=== PATIENT | female | born 1945 | race Caucasian/White ===

== ENCOUNTER 2017-09-14 08:52 | Outpatient (RCR) | payer MEDICARE ==
[~2017-09-14 08:52] MED LIST: AMLO-109 PO; ATOR20TA22 PO; CALC-595 PO; CALC-852 PO; CELE-1 PO; ESTR0.9T14 PO; FAMO-129 PO; MECL-111 PO; MECL25TA27 PO; MELO-149 PO; TRIA5T TOP; [UNRECOGNIZED DRUG - CODE] PO
[2017-09-14 09:29] LABS: INR 1.01
== END 2017-09-14 18:00 | disposition home or self-care (01) ==
LOC: LAB 08:52
PROVIDERS: ATTEND Orthopaedic Surgery
DX: Z01.818 Encounter for other preprocedural examination (principal); Z01.812 Encounter for preprocedural laboratory examination; M54.5 Low back pain
CPT/HCPCS: 36415; 85049; 85610; 85730

== ENCOUNTER → 2017-09-17 | Day surgery (SDC) | payer MEDICARE | LOC: OR 01:01 | PROVIDERS: ATTEND Orthopaedic Surgery | DX: Z02.9 Encounter for administrative examinations, unspecified (principal) ==

== ENCOUNTER → 2017-09-20 | Outpatient (CLI) | payer MEDICARE ==
--- NOTE | 2017-09-20 13:57 | RADIOLOGY IMAGING REPORT ---
FACILITY: PATIENT NAME: Susan Asencio : 1945 MR: [id number] V: [id number] EXAM DATE: ORDERING PHYSICIAN: MODESTO YAÑEZ TECHNOLOGIST: Location[place] [facility] [place] Patient: Susan Asencio : 1945 Visit/Account:[id number] Date of Sevice: 09/20/2017 L-SPINE W/O CONTRAST COMPARISONS: None. ADDITIONAL PERTINENT HISTORY: Low back pain for 2 months.. TECHNIQUE: Multiple axial images were obtained through the lumbar spine without IV contrast. Gaston l and sagittal reformatted images were obtained off the axial source data. One of the following dose optimization techniques was utilized in the performance of this exam: Automated exposure control; ad justment of the mA and/or kV according to the patient's size; or use of an iterative reconstruction technique. Specific details can be referenced in the facility's radiology CT exam operational policy . FINDINGS: Vertebral body heights and alignment: Mild scoliotic curvature convex to the left centered at L4-L5.. Vertebral bodies: Anteriorly and posteriorly directed osteophytes in the mid to lower lumbar spine. F acet hypertrophic changes. No bony fractures.. Disc spaces: Posterior broad-based disc protrusions at multiple levels. Associated ligamentum flavum and facet overgrowth at L3-L4. Findings concerning for moderate to severe canal stenosis at L2-L3 and L3-L4.. Thoraco-lumbar junction: Negative. Surrounding soft tissues: <Calcified atherosclerotic plaque involving the abdominal aorta and its ma alisson branches. There are multiple enlarged lymph nodes noted within the retroperitoneum as well as wit hin the mesentery for which a CT scan of the abdomen and pelvis with be of benefit for further evalua tion. This also findings concerning for underlying splenomegaly. Visualized bony pelvis: Negative. IMPRESSION: 1. Findings concerning for underlying lymphadenopathy within the abdomen and retroperitoneum as well as enlargement of the spleen. Dedicated CT of the abdomen and pelvis with contrast would be of benefi t for further evaluation. 2. Multilevel spondylitic change felt to be potentially most significant at L3-L4 and L2-L3 with find ings concerning for underlying severe canal stenosis at both of these levels. 3. No acute appearing bony abnormalities involving the lumbar spine. Report Dictated By: Simon Vang MD at 09/20/2017 1:49 PM Report E-Signed By: Simon Vang MD at 09/20/2017 1:53 PM WSN:[id number]
== END ==
LOC: CT 01:43
PROVIDERS: ATTEND Orthopaedic Surgery
DX: M47.896 Other spondylosis, lumbar region (principal); R59.0 Localized enlarged lymph nodes
CPT/HCPCS: 72131

== ENCOUNTER 2017-10-18 11:08 | Inpatient (IN) | payer MEDICARE ==
[~2017-10-18] VITALS: Ht 165.1 cm; Wt 63.6 kg
[~2017-10-18 11:08] MED LIST changes: +AMLO-96 PO; +BENA10TA4 PO; +CYCL-277 PO; +GLUC100013 PO; +IBUP-1671 PO
--- NOTE | 2017-10-18 11:14 | ER Report ---
History and Physical Time Seen By MD: 11:14 HPI/ROS CHIEF COMPLAINT: Abdominal pain HISTORY OF PRESENT ILLNESS: This is a 72-year-old female who presents to the emergency department for left-sided abdominal pain. Patient states that she developed some left sided abdominal pain that began yesterday gradually getting worse increased abdominal pain today. Patient states it's increases the pain and discomfort when she is taking a deep breath, no nausea, vomiting, diarrhea, dysuria. Patient denies trauma to the area. She states she has had similar pains in the past but not to this extent. Patient has recently changed her GI regiment with increased fiber, increased fluid intake and probiotics. REVIEW OF SYSTEMS: Constitutional: No fever, no chills. Eyes: No discharge. ENT: No sore throat. Cardiovascular: No chest pain, no palpitations. Respiratory: No cough, no shortness of breath. Gastrointestinal: As above. Genitourinary: No hematuria. Musculoskeletal: No back pain. Skin: No rashes. Neurological: No headache. Allergies: Coded Allergies: Sulfa (Sulfonamide Antibiotics) (Unverified Allergy, Unknown, UNKNOWN, 03/28) EHR Conversion amoxicillin (Unverified Allergy, Unknown, UNKNOWN, 10/18/17) EHR Conversion Penicillins (Verified Adverse Reaction, Intermediate, SEVERE DIARRHEA, 03/28) ? Hives Home Meds Active Scripts Benazepril Hcl (BENAZEPRIL HCL) 10 Mg Tab, 1 TAB PO QDAY, #90 TAB 4 Refills Prov:LUCÍA MEDINA MD 10/09/17 Amlodipine Besylate (AMLODIPINE BESYLATE) 5 Mg Tablet, 1 TAB PO QDAY, #90 TAB 4 Refills Prov:LUCÍA MEDINA MD 10/09/17 Estrogens, Conjugated (PREMARIN) 0.9 Mg Tablet, 1 TAB PO QDAY, #90 TAB Prov:CARIDAD LONODN MD 07/27/17 Atorvastatin Calcium (LIPITOR) 20 Mg Tablet, 1 TAB PO QDAY, #90 TAB 4 Refills Prov:BREANNE MCDANIEL MD 05/22/17 Reported Medications Cyclobenzaprine Hcl (CYCLOBENZAPRINE HCL) 5 Mg Tablet, 1 TAB PO Q8H Y for PRN, # 9 TAB 10/08/17 Glucosamine Sulfate 2KCL (GLUCOSAMINE SULFATE) 1,000 Mg Tablet, 1 TAB PO BID 10/08/17 Calcium Citrate/Vitamin D3 (CITRUS CALCIUM + D TABLET) 1 Each Tablet, 1 EACH PO DAILY 2 tabs = vit d 500 and calcium 400. Pt only taking 1 tab 12/27/16 Past Medical/Surgical History Patient has a past medical and surgical history of dizzy spells, hypertension, hypercholesterolemia, GERD, trigeminal neuralgia, left ankle fracture, wears glasses, clear implant, hard of hearing, appendectomy, hysterectomy, left leg surgery, tonsillectomy, mole removal. Reviewed Nurses Notes: Yes Hx Smoking: Yes (>20 YEARS. 1.5PPD) Smoking Status: Current: Every Day Smoker, Heavy Tobacco Smoker Hx Alcohol Use: Yes Constitutional Vital Sign - Last 24 Hours 10/18/17 10/18/17 10/18/17 10/18/17 11:15 11:15 11:30 11:45 Temp 97.7 Pulse 105 106 88 88 Resp 16 B/P (MAP) 131/53 Pulse Ox 89 88 87 86 O2 Delivery Room Air 10/18/17 10/18/17 10/18/17 10/18/17 11:51 12:00 12:15 12:30 Pulse 88 82 88 B/P (MAP) 97/60 (72) 94/55 (68) 97/52 (67) Pulse Ox 85 86 84 10/18/17 10/18/17 12:45 13:00 Pulse 83 B/P (MAP) 95/39 (57) Pulse Ox 87 93 Physical Exam General Appearance: The patient is alert, has no immediate need for airway protection and no signs of toxicity. Eyes: Pupils equal and round no pallor or injection. ENT, Mouth: Mucous membranes are moist. Respiratory: There are no retractions, lungs are clear to auscultation. Cardiovascular: Regular rate and rhythm, systolic murmur, no clicks or rubs. Gastrointestinal: Abdomen is soft with tenderness to the left upper quadrant, hypoactive bowel sounds. No masses, no abdominal bruits noted. Neurological: Alert and oriented 4. Moving all extremities. Following all commands. No focal neuro deficits. Skin: Warm and dry, no rashes. Musculoskeletal: Neck is supple non tender. Extremities are nontender, nonswollen and have full range of motion. DIFFERENTIAL DIAGNOSIS: After history and physical exam differential diagnosis was considered for abdominal pain including but not limited to appendicitis, cholecystitis, gastritis and urinary tract infection. Medical Decision Making Data Points Result Diagram: 10/18/17 1145 10/18/17 1145 Laboratory Hematology Test 10/18/17 11:45 10/18/17 11:49 Red Blood Count 5.21 M/uL (4.17-5.56) Mean Corpuscular Volume 88.0 fL (80.0-96.0) Mean Corpuscular Hemoglobin 29.7 pg (26.0-33.0) Mean Corpuscular Hemoglobin Concent 33.8 g/dL (32.0-36.0) Red Cell Distribution Width 14.0 % (11.5-14.5) Mean Platelet Volume 8.8 fL (7.2-11.1) Neutrophils (%) (Auto) % (39.4-72.5) Lymphocytes (%) (Auto) % (17.6-49.6) Monocytes (%) (Auto) % (4.1-12.4) Eosinophils (%) (Auto) % (0.4-6.7) Basophils (%) (Auto) % (0.3-1.4) Nucleated RBC Relative Count (auto) /100WBC Neutrophils # (Auto) K/uL (2.0-7.4) Lymphocytes # (Auto) K/uL (1.3-3.6) Monocytes # (Auto) K/uL (0.3-1.0) Eosinophils # (Auto) K/uL (0.0-0.5) Basophils # (Auto) K/uL (0.0-0.1) Nucleated RBC Absolute Count (auto) K/uL Neutrophils % (Manual) 20 % (39.4-72.5) Band Neutrophils % 0 % Lymphocytes % (Manual) 71 % (17.6-49.6) Atypical Lymphocytes % 5 % Monocytes % (Manual) 3 % (4.1-12.4) Eosinophils % (Manual) 0 % (0.4-6.7) Basophils % (Manual) 0 % (0.3-1.4) Platelet Estimate Normal Spherocytes 1+ Sodium Level 138 mmol/L (137-145) Potassium Level 4.2 mmol/L (3.5-5.0) Chloride Level 104 mmol/L (98-107) Carbon Dioxide Level 19 mmol/L (22-31) Blood Urea Nitrogen 16 mg/dl (7-18) Creatinine 1.10 mg/dl (0.52-1.04) Glomerular Filtration Rate Calc 48.6 Random Glucose 86 mg/dl (75-110) Calcium Level 9.8 mg/dl (8.4-10.2) Total Bilirubin 1.0 mg/dl (0.2-1.3) Aspartate Amino Transf (AST/SGOT) 26 U/L (0-35) Alanine Aminotransferase (ALT/SGPT) 29 U/L (0-56) Alkaline Phosphatase 88 U/L (0-126) Total Protein 7.0 gm/dl (6.3-8.2) Albumin 4.2 g/dl (3.5-5.0) Amylase Level 83 U/L (0-110) Lipase 106 U/L (23-300) Chemistry Test 10/18/17 11:45 10/18/17 11:49 White Blood Count 19.5 k/uL (4.5-11.0) Red Blood Count 5.21 M/uL (4.17-5.56) Hemoglobin 15.5 g/dL (12.0-16.0) Hematocrit 45.8 % (34.0-47.0) Mean Corpuscular Volume 88.0 fL (80.0-96.0) Mean Corpuscular Hemoglobin 29.7 pg (26.0-33.0) Mean Corpuscular Hemoglobin Concent 33.8 g/dL (32.0-36.0) Red Cell Distribution Width 14.0 % (11.5-14.5) Platelet Count 110 K/uL (150-450) Mean Platelet Volume 8.8 fL (7.2-11.1) Neutrophils (%) (Auto) % (39.4-72.5) Lymphocytes (%) (Auto) % (17.6-49.6) Monocytes (%) (Auto) % (4.1-12.4) Eosinophils (%) (Auto) % (0.4-6.7) Basophils (%) (Auto) % (0.3-1.4) Nucleated RBC Relative Count (auto) /100WBC Neutrophils # (Auto) K/uL (2.0-7.4) Lymphocytes # (Auto) K/uL (1.3-3.6) Monocytes # (Auto) K/uL (0.3-1.0) Eosinophils # (Auto) K/uL (0.0-0.5) Basophils # (Auto) K/uL (0.0-0.1) Nucleated RBC Absolute Count (auto) K/uL Neutrophils % (Manual) 20 % (39.4-72.5) Band Neutrophils % 0 % Lymphocytes % (Manual) 71 % (17.6-49.6) Atypical Lymphocytes % 5 % Monocytes % (Manual) 3 % (4.1-12.4) Eosinophils % (Manual) 0 % (0.4-6.7) Basophils % (Manual) 0 % (0.3-1.4) Platelet Estimate Normal Spherocytes 1+ Glomerular Filtration Rate Calc 48.6 Calcium Level 9.8 mg/dl (8.4-10.2) Total Bilirubin 1.0 mg/dl (0.2-1.3) Aspartate Amino Transf (AST/SGOT) 26 U/L (0-35) Alanine Aminotransferase (ALT/SGPT) 29 U/L (0-56) Alkaline Phosphatase 88 U/L (0-126) Total Protein 7.0 gm/dl (6.3-8.2) Albumin 4.2 g/dl (3.5-5.0) Amylase Level 83 U/L (0-110) Lipase 106 U/L (23-300) EKG/Imaging Imaging [facility] Patient: Susan Asencio : 1945 Visit/Account:[id number] Date of [facility]: 10/18/2017 ACUTE ABDOMEN SERIES 3 VIEW HISTORY: Abdominal pain. COMPARISON: Chest x-ray dated 11/13/2011. Lumbar spine CT dated 09/20/2017. FINDINGS: PA upright view of the chest, AP supine and AP upright views of the abdomen are obtained. Lines/tubes: None. Bowel gas pattern: No distended loops of bowel, air fluid levels or free air. Soft tissues: Soft tissue density in the left side of the abdomen suspicious for splenomegaly or other mass. Bony structures: Degenerative changes in the spine and hips. No acute osseous findings. Visualized lungs: Bilateral hilar and mediastinal fullness suspicious for lymphadenopathy. No consolidation, pleural effusion, or pneumothorax. IMPRESSION: 1. Bilateral hilar and mediastinal fullness suspicious for lymphadenopathy. Soft tissue density in the left side of the abdomen suspicious for splenomegaly. Retroperitoneal lymph node enlargement on the recent lumbar spine CT. Together these findings are concerning for lymphoma, infectious/ inflammatory disorders, or other malignancy. 2. Otherwise no acute abnormality. Results were called to MONTY RIVERA at 10/18/2017 12:55 PM. Report Dictated By: Monty Burrell MD at 10/18/2017 12:51 PM Report E-Signed By: Monty Burrell MD at 10/18/2017 1:00 PM WSN:[id number] [facility] Patient: Susan Asencio : 1945 Visit/Account:[id number] Date of Sevice: 10/18/2017 CHEST/AB/PELV W/CONTRAST HISTORY: Enlarged lymph nodes in spleen, left-sided abdomen pain ADDITIONAL HISTORY: None. TECHNIQUE: Following administration of IV contrast axial images acquired through the chest abdomen and pelvis during the portal venous phase. Coronal and sagittal reformatting was also performed. Dose Lowering Technique One of the following dose optimization techniques was utilized in the performance of this exam: Automated exposure control; adjustment of the mA and/ or kV according to the patient's size; or use of an iterative reconstruction technique. Specific details can be referenced in the facility's radiology CT exam operational policy. CONTRAST: 75 mL Isovue-370 COMPARISON: None. FINDINGS: CHEST: Lungs/Pleura: There is extensive honeycombing in the right lower lobe in addition to a 3.2 x 2.1 cm cavity possibly an irregular bulla. Also noted is a 5 mm subpleural noncalcified nodule posterior aspect right lower lobe best seen on image 71 of series 4 Mediastinum/lymph nodes: There is bulky mediastinal and bilateral hilar adenopathy. A confluent right paratracheal mass measures 4.5 x 3.2 x 6 cm. There is a bulky subcarinal amber mass measuring 6.2 x 2.6 x 4.8 cm multiple enlarged prevascular space AP window and bilateral hilar lymph nodes are also noted. There are multiple small supraclavicular lymph nodes bilaterally and multiple small axillary lymph nodes also noted bilaterally. Heart/vessels: There are moderate to severe vascular calcifications in the thoracic aorta and branch vessels including the coronary arteries. Bones/soft tissues: There is a small ovoid sclerotic density at the junction of right pedicle and posterior body of T10. ABDOMEN AND PELVIS: Hepatobiliary: There are several small gallstones although no evidence of biliary ductal dilatation. Spleen: Spleen is massively enlarged measuring 16.8 x 11.2 x 20 point to centimeters Pancreas: Negative. Adrenals: Negative. Kidneys ureters and bladder : There is a 7 x 5 mm stone in the right UPJ without evidence of hydronephrosis. Small subcentimeter hypodensity in the upper pole the right kidney likely represent a cyst although is too small to characterize. The left kidney is displaced inferiorly by the markedly enlarged spleen Genitalia: Hysterectomy GI: Negative. Vessels/spaces/nodes: Extensive vascular calcifications are seen throughout the chest abdomen and pelvis . There is massive retroperitoneal and mesenteric adenopathy throughout the abdomen and pelvis. There is very bulky periportal adenopathy. A retail account representative portal caval lymph node measures 2.3 x 3.8 cm extensive adenopathy just medial to the spleen is producing severe extrinsic mass effect on the mid left splenic vein. This is best appreciated on axial image 99 of series 2 Bones/soft tissues: Mild to moderate spondylotic changes of the lumbar spine. Additional findings: None pertinent. IMPRESSION: There is bulky mediastinal and bilateral hilar adenopathy in addition to massive retroperitoneal mesenteric adenopathy and periportal adenopathy. Also noted is massive splenomegaly.. This findings may be related to lymphoma or other aggressive lymphoproliferative process. There is severe mass effect on the mid splenic vein secondary to adjacent adenopathy Extensive honeycombing in the right lower lobe adjacent irregular cavitary lesion likely chronic although correlation with symptoms needed. Also noted is a 5 mm subpleural noncalcified nodule in the right lower lobe For nodules less than 6 mm in a low risk patient (minimal or absent smoking history, no history of malignancy), no routine followup is recomme ded. In a high risk patient ( smoking or malignancy history), optional 12 month followup can be obtained. Extensive vascular calcination occasions throughout the chest abdomen pelvisSmall ovoid sclerotic density junction of the right pedicle and posterior body of T10. This could represent a bone island however given the above findings a metastatic lesion not totally ruled out Cholelithiasis although no evidence of bony ductal dilatation 7 x 5 mm stone at the right UPJ without evidence of hydronephrosis Report Dictated By: Yesenia Hernandez MD at 10/18/2017 2:03 PM Report E-Signed By: Yesenia Hernandez MD at 10/18/2017 2:20 PM [id number] ED Course/Re-evaluation Clinical Indication for ER IV: Hydration, IV Access ED Course The patient was admitted to a room. A history and physical were obtained. Differential diagnoses were considered. An IV was started. A CBC, CMP were obtained. Diagnoses 19.5, Platelets 110, neutrophils 20, lymphocytes 71, chemistry showing CO2 19, creatinine 1.10. Three-view abdominal series showing bilateral hilar and mediastinal fullness suspicious for lymphoma, splenomegaly. It was recommended by the radiologist to proceed with a CT of the chest abdomen pelvis showing bulky mediastinal and bilateral hilar adenopathy in addition to massive retroperitoneal mesenteric adenopathy and periportal adenopathy. Also noted is massive splenomegaly. This findings may be related to lymphoma or other aggressive lymphoproliferative process. There is severe mass effect on the mid splenic vein secondary to adjacent adenopathy. Extensive honeycombing in the right lower lobe adjacent irregular cavitary lesion likely chronic although correlation with symptoms needed. Also noted is a 5 mm subpleural noncalcified nodule in the right lower lobe For nodules less than 6 mm in a low risk patient (minimal or absent smoking history, no history of malignancy), no routine followup is recommeded. In a high risk patient (smoking or malignancy history), optional 12 month followup can be obtained. Extensive vascular calcination occasions throughout the chest abdomen pelvis Small ovoid sclerotic density junction of the right pedicle and posterior body of T10. This could represent a bone island however given the above findings a metastatic lesion not totally ruled out I did review the lab studies as well as the CT report with the patient and her . The patient wasn't sure what to do with this diagnosis, I did tell her I did talk to and we added some additional lab studies and he will see her in his office next . I also spine to her that there will likely be some potential biopsies involved however Dr. Pelaez will make that recommendation. Patient was obviously sad and upset and had questions. I did tell her that my recommendation would be to admit her to the hospital and try to manage her pain over the next 8 or so and that she would likely go home and follow-up in Dr. Pelaez's office. The patient thought that would be fine she was concerned about the pain. I did speak with Dr. Nguyen the hospitalist on-call and he is accepted the patient into his services for pain control. The patient had no other questions at the time of admission. The patient was given 650 mg Tylenol, 500 mL bolus of normal saline, 4 mg IV morphine, 50 g IV fentanyl. The patient states she was feeling a little bit better after the IV fentanyl. 10/18/2017 3:01:05 pm I did speak with Dr. Pelaez regarding the patient's case and the diagnosis of lymphoma that was found on abdominal Xray and CT of the chest, abdomen and pelvis. I did order, at Dr. Pelaez's request flow cytometry for lymphoma and leukemia. The patient will be contacted by Dr. Pelaez's office and will follow up with him next . I did suggest admitting the patient for pain control, he thought that would be fine. 10/18/2017 3:20:22 pm I did speak with Dr. Nguyen regarding the patient's case, he has accepted the patient to his services for pain control secondary to new diagnosis of lymphoma. 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
[2017-10-18] MEDS ORDERED: ACETAMINOPHEN 325 MG TAB PO ONE (11:25)
[2017-10-18 12:07] LABS: PLATELET COUNT, AUTOMATED 110 K/uL (150-450)
[2017-10-18] MEDS ORDERED: NS(*) 0.9% 500 ML BAG 500 ML IV ONE (12:30)
[2017-10-18] MEDS ORDERED: MORPHINE 4 MG/ML SDV IVP ONE (12:45)
--- NOTE | 2017-10-18 13:04 | RADIOLOGY IMAGING REPORT ---
FACILITY: [facility] PATIENT NAME: Susan Asencio : 1945 MR: [id number] V: [id number] EXAM DATE: ORDERING PHYSICIAN: JONNA RIVERA TECHNOLOGIST: Location: [facility] - [place] Patient: Susan Asencio : 1945 Visit/Account:[id number] Date of Sevice: 10/18/2017 ACUTE ABDOMEN SERIES 3 VIEW HISTORY: Abdominal pain. COMPARISON: Chest x-ray dated 11/13/2011. Lumbar spine CT dated 09/20/2017. FINDINGS: PA upright view of the chest, AP supine and AP upright views of the abdomen are obtained. Lines/tubes: None. Bowel gas pattern: No distended loops of bowel, air fluid levels or free air. Soft tissues: Soft tissue density in the left side of the abdomen suspicious for splenomegaly or oth er mass. Bony structures: Degenerative changes in the spine and hips. No acute osseous findings. Visualized lungs: Bilateral hilar and mediastinal fullness suspicious for lymphadenopathy. No consol idation, pleural effusion, or pneumothorax. IMPRESSION: 1. Bilateral hilar and mediastinal fullness suspicious for lymphadenopathy. Soft tissue density in th e left side of the abdomen suspicious for splenomegaly. Retroperitoneal lymph node enlargement on the recent lumbar spine CT. Together these findings are concerning for lymphoma, infectious/inflammatory disorders, or other malignancy. 2. Otherwise no acute abnormality. Results were called to JONNA RIVERA at 10/18/2017 12:55 PM. Report Dictated By: Jonna Burrell MD at 10/18/2017 12:51 PM Report E-Signed By: Jonna Burrell MD at 10/18/2017 1:00 PM WSN:[id number]
[2017-10-18] MEDS ORDERED: IOPAMIDOL 76% 75 ML INFUS BTL 75 ML ONE (13:32)
--- NOTE | 2017-10-18 14:25 | RADIOLOGY IMAGING REPORT ---
FACILITY: [facility] PATIENT NAME: Susan Asencio : 1945 MR: [id number] V: [id number] EXAM DATE: ORDERING PHYSICIAN: JONNA RIVERA TECHNOLOGIST: Location: [facility] Patient: Susan Asencio : 1945 Visit/Account:[id number] Date of Sevice: 10/18/2017 CHEST/AB/PELV W/CONTRAST HISTORY: Enlarged lymph nodes in spleen, left-sided abdomen pain ADDITIONAL HISTORY: None. TECHNIQUE: Following administration of IV contrast axial images acquired through the chest abdomen a nd pelvis during the portal venous phase. Coronal and sagittal reformatting was also performed. Dose Lowering Technique One of the following dose optimization techniques was utilized in the performance of this exam: Autom ated exposure control; adjustment of the mA and/or kV according to the patient's size; or use of an i terative reconstruction technique. Specific details can be referenced in the facility's radiology C T exam operational policy. CONTRAST: 75 mL Isovue-370 COMPARISON: None. FINDINGS: CHEST: Lungs/Pleura: There is extensive honeycombing in the right lower lobe in addition to a 3.2 x 2.1 cm cavity possibly an irregular bulla. Also noted is a 5 mm subpleural noncalcified nodule posterior as pect right lower lobe best seen on image 71 of series 4 Mediastinum/lymph nodes: There is bulky mediastinal and bilateral hilar adenopathy. A confluent rig ht paratracheal mass measures 4.5 x 3.2 x 6 cm. There is a bulky subcarinal amber mass measuring 6.2 x 2.6 x 4.8 cm multiple enlarged prevascular space AP window and bilateral hilar lymph nodes are als o noted. There are multiple small supraclavicular lymph nodes bilaterally and multiple small axillar y lymph nodes also noted bilaterally. Heart/vessels: There are moderate to severe vascular calcifications in the thoracic aorta and branch vessels including the coronary arteries. Bones/soft tissues: There is a small ovoid sclerotic density at the junction of right pedicle and po sterior body of T10. ABDOMEN AND PELVIS: Hepatobiliary: There are several small gallstones although no evidence of biliary ductal dilatation. Spleen: Spleen is massively enlarged measuring 16.8 x 11.2 x 20 point to centimeters Pancreas: Negative. Adrenals: Negative. Kidneys ureters and bladder : There is a 7 x 5 mm stone in the right UPJ without evidence of hydronep hrosis. Small subcentimeter hypodensity in the upper pole the right kidney likely represent a cyst a lthough is too small to characterize. The left kidney is displaced inferiorly by the markedly enlarg ed spleen Genitalia: Hysterectomy GI: Negative. Vessels/spaces/nodes: Extensive vascular calcifications are seen throughout the chest abdomen and pe lvis . There is massive retroperitoneal and mesenteric adenopathy throughout the abdomen and pelvis. There is very bulky periportal adenopathy. A corporate sales representative portal caval lymph node measures 2.3 x 3.8 cm extensive adenopathy just medial to the spleen is producing severe extrinsic mass effect on the mid l eft splenic vein. This is best appreciated on axial image 99 of series 2 Bones/soft tissues: Mild to moderate spondylotic changes of the lumbar spine. Additional findings: None pertinent. IMPRESSION: There is bulky mediastinal and bilateral hilar adenopathy in addition to massive retroperitoneal mese nteric adenopathy and periportal adenopathy. Also noted is massive splenomegaly.. This findings may be related to lymphoma or other aggressive lymphoproliferative process. There is severe mass effect on the mid splenic vein secondary to adjacent adenopathy Extensive honeycombing in the right lower lobe adjacent irregular cavitary lesion likely chronic alth ough correlation with symptoms needed. Also noted is a 5 mm subpleural noncalcified nodule in the ri ght lower lobe For nodules less than 6 mm in a low risk patient (minimal or absent smoking history, n o history of malignancy), no routine followup is recomme ded. In a high risk patient (smoking or kavita gnancy history), optional 12 month followup can be obtained. Extensive vascular calcination occasions throughout the chest abdomen pelvisSmall ovoid sclerotic den sity junction of the right pedicle and posterior body of T10. This could represent a bone island how ever given the above findings a metastatic lesion not totally ruled out Cholelithiasis although no evidence of bony ductal dilatation 7 x 5 mm stone at the right UPJ without evidence of hydronephrosis Report Dictated By: Yesenia Hernandez MD at 10/18/2017 2:03 PM Report E-Signed By: Yesenia Hernandez MD at 10/18/2017 2:20 PM WSN:TREMAINE
[2017-10-18] MEDS ORDERED: fentaNYL CITR 100 MCG/2 ML AMP IVP ONE (15:30)
[2017-10-18 16:03] VITALS: BP 129/56
--- NOTE | 2017-10-18 16:38 | History & Physical ---
History of Present Illness Chief Complaint Left sided abdominal pain History of Present Illness Mrs. Asencio is a 72-year-old female with PMH of HTN, Hyperlipidemia, GERD, Active smoker who presented to the emergency department for left-sided abdominal pain. Patient stated that she has been having this left sided abdominal pain off and on for the last few months and yesterday it got worse. Patient stated the pain and discomfort gets worse when she takes a deep breath. She denies nausea, vomiting, diarrhea, dyspnea, CP, dysuria etc. Patient denied any trauma to the area. She stated she has had similar pains in the past but not to this extent. Patient has recently changed her GI regiment with increased fiber, increased fluid intake and probiotics per her PCP, Dr. Medina. During the ER course patient's initial work up revealed high WBC with 71% Lymphocytes and 20% Neutrophils, her Cr was 1.1 with GFR 48ml/min and CO2 was 19. Her abdominal series revealed bilateral hilar and mediastinal fullness and splenomegaly suspicious for lymphoma. It was recommended by the radiologist to proceed with a CT of the chest abdomen pelvis showing bulky mediastinal and bilateral hilar adenopathy in addition to massive retroperitoneal mesenteric adenopathy and periportal adenopathy. Also noted is massive splenomegaly. This findings may be related to lymphoma or other aggressive lymphoproliferative process. There is severe mass effect on the mid splenic vein secondary to adjacent adenopathy. Extensive honeycombing in the right lower lobe adjacent irregular cavitary lesion likely chronic although correlation with symptoms needed. Also noted is a 5 mm subpleural noncalcified nodule in the right lower lobe For nodules less than 6 mm in a low risk patient (minimal or absent smoking history, no history of malignancy), no routine followup is recommended. In a high risk patient (smoking or malignancy history), optional 12 month followup can be obtained. Extensive vascular calcination occasions throughout the chest, abdomen and pelvis. Small ovoid sclerotic density junction of the right pedicle and posterior body of T10. This could represent a bone island however given the above findings a metastatic lesion not totally ruled out ER-MD did talk to Dr. Pelaez regarding the patient's case and the diagnosis of lymphoma that was found on abdominal Xray and CT of the chest, abdomen and pelvis. He ordered, at Dr. Pelaez's request flow cytometry for lymphoma and leukemia. The patient will be contacted by Dr. Pelaez's office and will follow up with him next . I discussed the case with the ER-MD and admitted the patient for further evaluation and management. I discussed the case with her and her at length. History Home Meds Active Scripts Benazepril Hcl (BENAZEPRIL HCL) 10 Mg Tab, 1 TAB PO QDAY, #90 TAB 4 Refills Prov:LUCÍA MEDINA MD 10/09/17 Amlodipine Besylate (AMLODIPINE BESYLATE) 5 Mg Tablet, 1 TAB PO QDAY, #90 TAB 4 Refills Prov:LUCÍA MEDINA MD 10/09/17 Estrogens, Conjugated (PREMARIN) 0.9 Mg Tablet, 1 TAB PO QDAY, #90 TAB Prov:CARIDAD LONDON MD 07/27/17 Atorvastatin Calcium (LIPITOR) 20 Mg Tablet, 1 TAB PO QDAY, #90 TAB 4 Refills Prov:BREANNE MCDANIEL MD 05/22/17 Reported Medications Cyclobenzaprine Hcl (CYCLOBENZAPRINE HCL) 5 Mg Tablet, 1 TAB PO Q8H Y for PRN, # 9 TAB 10/08/17 Glucosamine Sulfate 2KCL (GLUCOSAMINE SULFATE) 1,000 Mg Tablet, 1 TAB PO BID 10/08/17 Calcium Citrate/Vitamin D3 (CITRUS CALCIUM + D TABLET) 1 Each Tablet, 1 EACH PO DAILY 2 tabs = vit d 500 and calcium 400. Pt only taking 1 tab 12/27/16 Allergies: Coded Allergies: Sulfa (Sulfonamide Antibiotics) (Unverified Allergy, Unknown, UNKNOWN, 03/28) EHR Conversion amoxicillin (Unverified Allergy, Unknown, UNKNOWN, 10/18/17) EHR Conversion Penicillins (Verified Adverse Reaction, Intermediate, SEVERE DIARRHEA, 03/28) ? Hives Hx Smoking: Yes (>20 YEARS. 1.5PPD) Smoking Status: Current: Every Day Smoker, Heavy Tobacco Smoker Caffeine Intake: Coffee, Soda Caffeine/Cups Per Day: COFFEE 2/DAY, SODA 2/WEEK Hx Alcohol Use: Yes Hx Substance Use Disorder: No Social Drug Use: Never Review of Systems Constitutional: No Fever, No Weight Loss, No Weight Gain, No Chills, No Night Sweats Neurological: No Confusion, No Weakness, No Dizziness Cardiovascular: No Chest Pain, No Palpitations Respiratory: No Shortness of Breath, No Cough, No Wheezing Gastrointestinal: No Nausea, No Vomiting, No Diarrhea, No Dysphagia, No Constipation, No Hematemesis, No Abdominal Pain Genitourinary: No Dysuria, No Hematuria Musculoskeletal: No Pain, No Sprain, No Strain Psychiatric: No Depression, No Anxiety Exam Vital Signs Vital Signs Date Time Temp Pulse Resp B/P (MAP) Pulse Ox O2 Delivery O2 Flow Rate FiO2 10/18/17 16:03 97.9 69 14 129/56 (80) 91 Nasal Cannula 2.0 General Appearance: Alert, Awake, No Acute Distress, Afebrile Neuro: No Gross deficits Eyes: PERRLA ENT: Normal Neck: No Masses Cardiovascular: Normal Rhythm & Peripheral Pulses, No Edema, No JVD Respiratory: No Respiratory Distress Chest: No Masses GI: Abd Soft and Non-Tender : Normal, No CVA Tenderness, Other (palpable spleen with tenderness) Extremities: Soft and Non Tender, Warm, Pulses Integumentary: Skin Intact without Lesion / Mass Psych: Alert & Oriented X3, Appropriate Mood & Affect Medical Decision Making Data Points Result Diagram: 10/18/17 1145 10/18/17 1145 reviewed Pre-Admit Course ED Medications reviewed Medical Record Review: Yes Assessment and Plan Problems: (1) Abdominal pain Status: Acute Assessment & Plan: Most likely due to massive splenomegaly along with lymphadenopathy requires to r/o lymphoproliferative disease and infectious process I will admit the patient for further evaluation and management for her pain. Lymphoma work up initiated in the ER and Dr. Sridhar Flores was also informed. Patient is scheduled to have appointment on at cancer center I will start her on Lovenox 40mgSQ daily for her DVTP I will start Morphine 2-4mg IV q 4h I will start Zofran 4mg IV q 6h I will also start Nicotine Patch for her active nicotine use (2) Lymphoma Status: Acute Assessment & Plan: Imaging studies in the ER revealed Lymphoproliferative disorder and work up was initiated in the ER. Dr. Sridhar Flores was consulted and patient scheduled to have appointment on Flow Cytometry was sent from ER, infectious w/u will be done here I will start her on Lovenox 40mgSQ daily for her DVTP I will start Morphine 2-4mg IV q 4h I will start Zofran 4mg IV q 6h I will also start Nicotine Patch for her active nicotine use (3) Acute kidney injury Status: Acute Assessment & Plan: Most likely due to pre renal azotemia I will start IVF NS at 80ml/h I will repeat BMP in am Time Spent on Plan of Care: > 30 min Copies to: LUCÍA MEDINA MD; IESHA APODACA MD Venous Thromboembolism VTE Risk Physician Assess for VTE Risk: Yes Patient's VTE Risk: High VTE Diagnostic Test 2 Days Prior to Admit: No Antithrombotics Is Pt On Any Antithrombotics?: No Exam Sepsis Risk: No Definite Risk Problem Qualifiers (1) Abdominal pain: Abdominal location: left upper quadrant Qualified Codes: R10.12 - Left upper quadrant pain (2) Lymphoma: Lymphoma type: unspecified type Lymphoma site: spleen Qualified Codes: C85.97 - Non-Hodgkin lymphoma, unspecified, spleen DORIS NUÑEZ MD October 18, 2017 16:38
[2017-10-18] MEDS ORDERED: NS(*) 0.9% 1000 ML BAG 1,000 ML IV PRN ×2 (17:35→17:45)
[2017-10-18] MEDS ORDERED: ONDANSETRON 4 MG/2 ML VIAL IVP PRN (17:45)
[2017-10-18] MEDS ORDERED: ACETAMINOPHEN 325 MG TAB PO PRN (17:45)
[2017-10-18] MEDS ORDERED: MORPHINE 4 MG/ML SDV IVP PRN (17:50)
[2017-10-18] MEDS ORDERED: MORPHINE 2 MG/ML SYR IVP PRN (17:55)
[2017-10-18 19:11] VITALS: BP 101/55
[2017-10-18] MEDS: NICOTINE 21 MG/24 HR PATCH TD SCH (19:59)
[2017-10-18] MEDS ORDERED: ATORVASTATIN 10 MG TAB PO SCH (21:00)
[2017-10-18 23:42] VITALS: BP 106/52
[2017-10-19 05:31] LABS: PLATELET COUNT, AUTOMATED 102 K/uL (150-450)
[2017-10-19 07:22] VITALS: BP 107/53
[2017-10-19] MEDS ORDERED: amLODIPine BESYL(*) 5 MG TAB PO SCH (09:00)
[2017-10-19] MEDS ORDERED: PANTOPRAZOLE SOD 40 MG TABEC PO SCH (09:00)
[2017-10-19] MEDS ORDERED: BENAZEPRIL HCL 10 MG TAB PO SCH (09:00)
[2017-10-19] MEDS ORDERED: ENOXAPARIN 40 MG/0.4ML SYR SC SCH (09:00)
[2017-10-19] MEDS: NICOTINE 21 MG/24 HR PATCH TD SCH (09:24)
[2017-10-19] MEDS ORDERED: PER PO (09:29)
--- NOTE | 2017-10-19 09:33 | Hospitalist Depart ---
Discharge Summary Reason for Hosp/Final Diag: (1) Lymphoma Status: Acute Hospital Course & Plan: She did present with abdominal pain. Her CT scan detected massive retroperitoneal adenopathy and splenomegaly. She does have follow up arranged with Dr. Sridhar Pelaez. (2) Acute kidney injury Status: Acute Hospital Course & Plan: She was treated with IV fluids. Departure Latest Vital Signs Vital Signs 10/19/17 07:22 Temp 98.2 Pulse 77 Resp 20 B/P (MAP) 107/53 (71) Weight (Pounds): 140 Weight (Ounces): 2.0 Result Diagram: 10/19/1751010/19/17510 Condition: Improved Discharge: Home, Self Care Discharge Instructions Home Meds Active Scripts Oxycodone/Acetaminophen (OXYCODONE/ACETAMINOPHEN 5MG/325 MG) 5 Mg/325 Mg Tab, 1- 2 TAB PO Q6HR Y for PAIN, #30 TAB Prov:JOSELYN TRAYLOR DO 10/19/17 Benazepril Hcl (BENAZEPRIL HCL) 10 Mg Tab, 1 TAB PO QDAY, #90 TAB 4 Refills Prov:LUCÍA MEDINA MD 10/09/17 Amlodipine Besylate (AMLODIPINE BESYLATE) 5 Mg Tablet, 1 TAB PO QDAY, #90 TAB 4 Refills Prov:LUCÍA MEDINA MD 10/09/17 Estrogens, Conjugated (PREMARIN) 0.9 Mg Tablet, 1 TAB PO QDAY, #90 TAB Prov:CARIDAD LONDON MD 07/27/17 Atorvastatin Calcium (LIPITOR) 20 Mg Tablet, 1 TAB PO QDAY, #90 TAB 4 Refills Prov:BREANNE MCDANIEL MD 05/22/17 Reported Medications Glucosamine Sulfate 2KCL (GLUCOSAMINE SULFATE) 1,000 Mg Tablet, 1 TAB PO BID 10/08/17 Calcium Citrate/Vitamin D3 (CITRUS CALCIUM + D TABLET) 1 Each Tablet, 1 EACH PO DAILY 2 tabs = vit d 500 and calcium 400. Pt only taking 1 tab 12/27/16 Discontinued Reported Medications Cyclobenzaprine Hcl (CYCLOBENZAPRINE HCL) 5 Mg Tablet, 1 TAB PO Q8H Y for PRN, # 9 TAB 10/08/17 Diet: Regular Activity: As Tolerated Copies to: IESHA APODACA MD Venous Thromboembolism Antithrombotics Is Pt On Any Antithrombotics?: No Problem Qualifiers (1) Lymphoma: Lymphoma type: unspecified type Lymphoma site: spleen Qualified Codes: C85.97 - Non-Hodgkin lymphoma, unspecified, spleen JOSELYN TRAYLOR DO October 19, 2017 09:33
[2017-10-19 11:01] VITALS: Ht 165.1 cm; Wt 63.6 kg
== END 2017-10-19 12:30 | disposition home or self-care (01) | DRG 948 ==
LOC: ER 11:13 → MED 15:27
PROVIDERS: ADMIT Specialist; ATTEND Specialist
DX: G89.3 Neoplasm related pain (acute) (chronic) (principal); C85.97 Non-Hodgkin lymphoma, unspecified, spleen; N17.9 Acute kidney failure, unspecified; I10 Essential (primary) hypertension; K21.9 Gastro-esophageal reflux disease without esophagitis; E78.00 Pure hypercholesterolemia, unspecified; G50.0 Trigeminal neuralgia; F17.210 Nicotine dependence, cigarettes, uncomplicated; Z90.710 Acquired absence of both cervix and uterus; Z88.0 Allergy status to penicillin; Z88.2 Allergy status to sulfonamides
CPT/HCPCS: 36415; 71260; 74022; 74177; 81001; 82040; 82150; 82247; 82310; 82374; 82435; 82565; 82947; 83615; 83690; 84075; 84132; 84155; 84165; 84295; 84450; 84460; 84520; 85007; 85025; 85027; 86580; 87040; 87088; 88184; 88185; 88189; 99285; J2270; J2405; J3010; J7030; J7040; Q9967

== ENCOUNTER 2017-11-01 00:29 | Day surgery (SDC) | payer MEDICARE ==
[2017-10-19 11:01] VITALS: Ht 167.6 cm; Wt 61.2 kg
[2017-11-01] VITALS (7 sets, daily range): BP systolic 84–111; BP diastolic 47–58
[~2017-11-01] VITALS: Ht 167.6 cm; Wt 61.2 kg
[~2017-11-01 00:29] MED LIST changes: +BISA-236 RC; +OXYC-373 PO; +PER PO; +POLY17PO25 PO
[2017-11-01] MEDS ORDERED: NORMOSOL R SOLN(*) 1000 ML BAG 1,000 ML IV PRN (10:00)
[2017-11-01] MEDS ORDERED: VANCOMYCIN 1 GM ADDVIAL 1 GM in NS(*) 0.9% 250 ML ADDVAN BAG 250 ML IVPB ONE (10:00)
[2017-11-01] MEDS ORDERED: MIDAZOLAM 2 MG/2 ML VIAL IVP PRN (10:00)
[2017-11-01] MEDS ORDERED: FAMOTIDINE 20 MG TAB PO ONE (10:00)
[2017-11-01] MEDS ORDERED: LIDOCAINE/SOD BICARB 8.4% SYR ID ONE (10:00)
[2017-11-01 10:56] LABS: PLATELET COUNT, AUTOMATED 158 K/uL (150-450)
--- NOTE | 2017-11-01 11:06 | EKG ---
FACILITY: [facility] PATIENT NAME: SRINIVAS RINALDI : [id number] MR: [id number] V: [id number] EXAM DATE: ORDERING PHYSICIAN: BREANNE BENAVIDEZ TECHNOLOGIST: AGA Pruitt Reason : PRE-OP Blood Pressure : / mmHG Vent. Rate : 095 BPM Atrial Rate : 095 BPM P-R Int : 130 ms QRS Dur : 076 ms QT Int : 358 ms P-R-T Axes : 055 017 070 degrees QTc Int : 449 ms Normal sinus rhythm Normal ECG No previous ECGs available Confirmed by JOSELYN TRAYLOR ([id number]) on 11/01/2017 2:59:22 PM Referred By: BENNIE Confirmed By:JOSELYN TRAYLOR
[2017-11-01] MEDS ORDERED: HYDROmorphone HCL 2 MG/ML SDV IVP ONE (11:25)
[2017-11-01] MEDS ORDERED: HEPARIN SOD LCK FLSH 100 UN/ML ONE ×2 (12:55→13:34)
[2017-11-01] MEDS ORDERED: ROPIVACAINE 0.5% 20 ML VIAL ONE (12:55)
[2017-11-01] MEDS ORDERED: NS(*) 0.9% 10 ML VIAL 20 ML ONE (12:56)
[2017-11-01] MEDS ORDERED: PROPOFOL EMUL(*) 10MG/ML 20 ML 40 ML ONE (13:17)
[2017-11-01] MEDS ORDERED: HEPARIN FLSH (PORT) 500 UN/5ML ONE ×2 (13:34)
[2017-11-01] MEDS ORDERED: PHENYLEPHRINE 10 MG/1 ML VIAL ONE (13:36)
[2017-11-01] MEDS ORDERED: EPINEPHrine HCL 30 MG/30 ML ONE ×2 (13:45)
--- NOTE | 2017-11-01 14:31 | Short(Outpt) Discharge Summary ---
Discharge Summary Reason for Hosp/Final Diag: (1) Lymphoma Status: Acute Hospital Course & Plan: Bone marrow biopsy and aspiration and Right IJ Power Port placement completed without problems. Departure Discharge to: Home, Self Care Discharge Instructions Home Meds Active Scripts Oxycodone Hcl/Acetaminophen (OXYCODONE-ACETAMINOPHEN 5-325) 1 Each Tablet, 1 EACH PO QID for 10 Days, #30 TAB Prov:LUCÍA MEDINA MD 10/30/17 Bisacodyl (DULCOLAX) 10 Mg Supp.rect, 10 MG RC DAILY Y for constipation for 30 Days, #10 SUPP.RECT Prov:LUCÍA MEDINA MD 10/23/17 Benazepril Hcl (BENAZEPRIL HCL) 10 Mg Tab, 1 TAB PO QDAY, #90 TAB 4 Refills Prov:LUCÍA MEDINA MD 10/09/17 Estrogens, Conjugated (PREMARIN) 0.9 Mg Tablet, 1 TAB PO QDAY, #90 TAB Prov:CARIDAD LONDON MD 07/27/17 Atorvastatin Calcium (LIPITOR) 20 Mg Tablet, 1 TAB PO QDAY, #90 TAB 4 Refills Prov:BREANNE MCDANIEL MD 05/22/17 Reported Medications Glucosamine Sulfate 2KCL (GLUCOSAMINE SULFATE) 1,000 Mg Tablet, 1 TAB PO BID 10/08/17 Discontinued Reported Medications Polyethylene Glycol 3350 (MIRALAX) 17 Gm Powd.pack, 17 GM PO DAILY Y for prn, PKT 10/23/17 Calcium Citrate/Vitamin D3 (CITRUS CALCIUM + D TABLET) 1 Each Tablet, 1 EACH PO DAILY 2 tabs = vit d 500 and calcium 400. Pt only taking 1 tab 12/27/16 Discontinued Scripts Amlodipine Besylate (AMLODIPINE BESYLATE) 5 Mg Tablet, 1 TAB PO QDAY, #90 TAB 4 Refills Prov:LUCÍA MEDINA MD 10/09/17 Diet: Regular Activity: As Tolerated Special Instructions: You may shower starting on 11/03/17. Leave the incisions on your neck and chest open to air and you can remove the band-aid on your lower back prior to showering and then all incisions open to air but leave the steristrips in place until they fall off on their own. Do not immerse the incisions for 2 weeks. The sutures in your neck SHOULD fall out in 2 weeks but if they don't, they can be removed in the cancer center or in my office. Problem Qualifiers (1) Lymphoma: Lymphoma type: unspecified type Lymphoma site: unspecified region Qualified Codes: C85.90 - Non-Hodgkin lymphoma, unspecified, unspecified site JOSELYN AVERY MD November 01, 2017 14:31
--- NOTE | 2017-11-01 14:38 | Post Operative Progress Note ---
Post Operative Progress Note Date: November 01, 2017 Time: 14:31 Surgeon: Manfred Dictation number: [id number] Anesthesia: LMA by Dr. Yost Pre-Op Diagnosis: Lymphoma Post-Op Diagnosis: SCOTT Findings: None Procedure(s): 1) bone marrow biopsy and aspiration 2) Right IJ power port placement Specimen Removed:(May be N/A): Bone marrow aspirate Cortical bone cores x2 Complications: None Fluids: See anesthesia record Estimated Blood Loss: Minimal Date OP Note Dictated: November 01, 2017 Time OP Note Dictated: 14:32 JOSELYN AVERY MD November 01, 2017 14:37
--- NOTE | 2017-11-01 15:52 | RADIOLOGY IMAGING REPORT ---
FACILITY: [facility] [place] PATIENT NAME: Susan Asencio : 1945 MR: [id number] V: [id number] EXAM DATE: ORDERING PHYSICIAN: JOSELYN AVERY TECHNOLOGIST: Location: [facility] Patient: Susan Asencio : 1945 Visit/Account:[id number] Date of Sevice: 11/01/2017 Chest single view: HISTORY: Right IJ PowerPort placement. COMPARISON: 11/13/2011 FINDINGS: Portable chest 1434 hours: Since the prior study, right chest port is been placed, catheter tip near the cavoatrial junction reservoir in the subcutaneous tissues overlying the right chest wal l. Heart size is within normal limits. There is prominence of hilar structures and mediastinal contou rs consistent with adenopathy which was seen on recent chest x-ray. Patchy opacities present in the r ight lower lung, atelectasis versus infiltrate. There is no definite pleural effusion. No pneumothora x identified. No evidence of congestive heart failure. Atherosclerotic changes are present in the aorta. IMPRESSION: 1. Interval placement of a right chest port, catheter tip at the cavoatrial junction. There is no pne umothorax or other apparent complication. 2. Findings consistent with mediastinal and hilar adenopathy. 3. Patchy right basilar airspace opacity, atelectasis versus infiltrate. Report Dictated By: Renetta Weems MD at 11/01/2017 3:45 PM Report E-Signed By: Renetta Weems MD at 11/01/2017 3:48 PM WSN:[id number]
--- NOTE | 2017-11-01 16:02 | RADIOLOGY IMAGING REPORT ---
FACILITY: [facility] [place] PATIENT NAME: Susan Asencio : 1945 MR: [id number] V: [id number] EXAM DATE: ORDERING PHYSICIAN: JOSELYN AVERY TECHNOLOGIST: Location: [facility] [place] Patient: Susan Asencio : 1945 Visit/Account:[id number] Date of Sevice: 11/01/2017 Exam: C-ARM FLUORO PORT/CATH Indication: PORT PLACEMENT, RAD Comparison: None available Findings: Fluoroscopy is provided for right-sided Mediport placement. Images show right IJ Mediport with catheter tip at the atrial caval junction. Fluoroscopy time 13.4 seconds DOSE: DAP was 0.01017 mGy*m2. IMPRESSION: Fluoroscopy for Mediport placement Report Dictated By: Roland Garnett at 11/01/2017 3:57 PM Report E-Signed By: Roland Garnett at 11/01/2017 3:57 PM WSN:[id number]
[2017-11-01] MEDS ORDERED: HETASTARCH 6% 30 GM/500 ML BAG IV ONE ×2 (16:40→16:45)
--- NOTE | 2017-11-01 19:51 | OPERATIVE REPORT 1 ---
EVENT DATE: November 01, 2017 SURGEON: Jean Shearer MD ANESTHESIOLOGIST: Doron Yost MD ANESTHESIA: LMA. PREOPERATIVE DIAGNOSIS Lymphoma. POSTOPERATIVE DIAGNOSIS Lymphoma. PROCEDURES PERFORMED 1. Bone marrow biopsy and aspiration. 2. Right internal jugular PowerPort placement. COMPLICATIONS None. CONDITION Stable. BLOOD LOSS Minimal. INDICATIONS This is a 72-year-old female who has been referred to me by the [facility] for PowerPort placement and bone marrow biopsy so that they can coordinate her treatment with chemotherapy and also stage the lymphoma. DESCRIPTION OF PROCEDURE The patient was brought to the operating room, placed supine on the operating table. LMA anesthesia was administered, and she was placed in the left lateral decubitus position. The skin overlying her right posterior superior iliac spine was prepped and draped in a sterile fashion. Timeout was completed. I made a small stab incision in the skin after anesthetizing it with 1% lidocaine without epinephrine. I also anesthetized the underlying periosteum. I used the bone marrow aspiration needle and accessed the bone marrow cavity and then placed the 20 mL heparinized syringe onto this and aspirated 20 mL of bone marrow. I handed it directly to the research laboratory manager, who did not see any spicules and so did not think it was a good specimen. So, I obtained another sterile 20 mL syringe that was heparinized and aspirated another 20 mL of bone marrow and gave it directly to the research laboratory manager. They then processed it and felt it was a good sample, and so this was removed. The bone core needle was inserted, and two 1 cm pieces of core cortical bone were obtained. Her skin was cleaned and dried, and a Steri-Strip was placed over the stab incision, followed by the Band-Aid. She was placed in supine, and her right neck, chest, and shoulder were prepped and draped in a sterile fashion. Another timeout was completed, and with the patient in Trendelenburg and using the ultrasound as a guide, I accessed the internal jugular vein on the right in one attempt. I threaded the wire through the needle, and I removed the needle, and then used the C-arm fluoroscope to confirm the needle was in the SVC. I then anesthetized the skin in the neck and in the right infraclavicular skin and made a stab incision in the neck at the wire and made a transverse incision in the infraclavicular skin. I dissected through the dermis and subcutaneous fat and created a pocket caudad to the incision. I made sure this as hemostatic and then pulled the catheter using the tunneler from the pocket up into the stab incision in the neck. With the patient in Trendelenburg, I threaded the dilator and sheath over the wire and then used the C-arm to confirm the dilator and sheath in the SVC. I then removed the dilator and wire and threaded the catheter through the sheath and then removed the sheath. I pulled the catheter back so the tip was in the SVC just above the right atrium as visualized on the C-arm and then cut it to length. I placed the port on the catheter and then locked it in place with a locking cuff and sutured the catheter down to the underlying muscle fascia with 3-0 nylon at the corners. I aspirated blood and then flushed it with 10 mL of normal saline. It aspirated and flushed with no problems. I then flushed the catheter and port with 5 mL of 100 units/mL of heparinized saline. Again, it flushed with no problems. I checked more C-arm images to confirm the positioning, and everything looked good with no kinks or twists. I then placed a single 3-0 chromic suture on the stab incision on the neck and then closed the skin at the port site with interrupted 3-0 Vicryl deep dermal sutures and 4-0 Monocryl in a running subcuticular suture. Skin was cleaned and dried, and Steri-Strips were applied. The patient was awakened and LMA removed, and she was transported to the recovery room in stable condition having tolerated the procedure without any apparent problems. SHAJI
[2017-11-07] MEDS ORDERED: HYDR2TAB74 PO (18:01)
== END 2017-11-01 15:30 | disposition home or self-care (01) ==
LOC: OR 00:29
PROVIDERS: ATTEND Surgery
DX: C85.10 Unspecified B-cell lymphoma, unspecified site (principal); I10 Essential (primary) hypertension; E78.5 Hyperlipidemia, unspecified; K21.9 Gastro-esophageal reflux disease without esophagitis; G50.0 Trigeminal neuralgia; J44.9 Chronic obstructive pulmonary disease, unspecified
CPT/HCPCS: 36415; 36561; 38221; 71045; 77001; 85025; 93005; A9270; C1788; J0171; J1170; J1642; J2250; J2370; J2704; J2795; J3370; J7050; 82310; 82374; 82435; 82565; 82947; 84132; 84295; 84520; 88184; 88185

== ENCOUNTER 2017-11-16 15:02 | Inpatient (IN) | payer MEDICARE ==
[2017-10-19 11:01] VITALS: Ht 158.8 cm; Wt 61.2 kg
[~2017-11-16] VITALS: Ht 158.8 cm; Wt 61.2 kg
[~2017-11-16 15:02] MED LIST changes: +HYDR2TAB74 PO
[2017-11-16] MEDS ORDERED: ESTR0.9T14 PO (15:36)
[2017-11-16] MEDS ORDERED: ATOR20TA22 PO (15:36)
[2017-11-16] MEDS ORDERED: OXYC-865 PO (15:37)
[2017-11-16 15:39] VITALS: BP 108/62
[2017-11-16] MEDS: NICOTINE 21 MG/24 HR PATCH TD SCH (17:00)
[2017-11-16] MEDS: NS(*) 0.9% 1000 ML BAG 1,000 ML IV PRN (17:00)
--- NOTE | 2017-11-16 17:24 | History & Physical ---
History of Present Illness Chief Complaint Tumor lysis History of Present Illness This patient was directly admitted from the cancer center after being found to have laboratory studies consistent with tumor lysis syndrome. She was diagnosed with mantle cell lymphoma and started chemotherapy earlier this week. History Problems: (1) Mantle cell lymphoma (2) Hypertension Home Meds Active Scripts Bisacodyl (DULCOLAX) 10 Mg Supp.rect, 10 MG RC DAILY Y for constipation for 30 Days, #10 SUPP.RECT Prov:LUCÍA MEDINA MD 10/23/17 Atorvastatin Calcium (LIPITOR) 20 Mg Tablet, 1 TAB PO QDAY, #90 TAB 4 Refills Prov:BREANNE MCDANIEL MD 05/22/17 Reported Medications Oxycodone Hcl/Acetaminophen (PERCOCET 5-325 MG TABLET) 1 Each Tablet, 1 EACH PO PRN Y for PAIN, TAB 11/16/17 Atorvastatin Calcium (LIPITOR) 20 Mg Tablet, 1 TAB PO QHS, TAB 11/16/17 Estrogens, Conjugated (PREMARIN) 0.9 Mg Tablet, 0.9 MG PO 3XW 11/16/17 Glucosamine Sulfate 2KCL (GLUCOSAMINE SULFATE) 1,000 Mg Tablet, 1 TAB PO BID 10/08/17 Discontinued Scripts Hydromorphone Hcl (DILAUDID) 2 Mg Tablet, 1-2 MG PO Q6H Y for pain for 7 Days, # 28 TAB Prov:LUCÍA MEDINA MD 11/07/17 Oxycodone Hcl/Acetaminophen (OXYCODONE-ACETAMINOPHEN 5-325) 1 Each Tablet, 1 EACH PO QID for 10 Days, #30 TAB Prov:LUCÍA MEDINA MD 10/30/17 Estrogens, Conjugated (PREMARIN) 0.9 Mg Tablet, 1 TAB PO QDAY, #90 TAB Prov:CARIDAD LONDON MD 07/27/17 Benazepril Hcl (BENAZEPRIL HCL) 10 Mg Tab, 1 TAB PO QDAY, #90 TAB 4 Refills Prov:LUCÍA MEDINA MD 10/09/17 Allergies: Coded Allergies: Sulfa (Sulfonamide Antibiotics) (Unverified Allergy, Unknown, UNKNOWN, 03/28) EHR Conversion amoxicillin (Unverified Allergy, Unknown, UNKNOWN, 10/18/17) EHR Conversion Penicillins (Verified Adverse Reaction, Intermediate, SEVERE DIARRHEA, 03/28) ? Hives Hx Smoking: Yes (1ppd) Smoking Status: Current: Every Day Smoker Exposure to Second Hand Smoke?: Yes Caffeine Intake: Coffee, Tea Caffeine/Cups Per Day: 1CPD Hx Alcohol Use: Yes Hx Substance Use Disorder: No Social Drug Use: Never Review of Systems All Systems Reviewed/Normal: Yes Exam Vital Signs Vital Signs Date Time Temp Pulse Resp B/P (MAP) Pulse Ox O2 Delivery O2 Flow Rate FiO2 11/16/17 16:01 88 11/16/17 15:39 Room Air 11/16/17 15:39 97.9 87 16 108/62 (77) Neuro: No Gross deficits Eyes: PERRLA Cardiovascular: Regular Rate and Rhythm Respiratory: Clear to Auscultation GI: Abd Soft and Non-Tender Extremities: No Edema Integumentary: No Cyanosis Assessment and Plan Problems: (1) Tumor lysis syndrome Assessment & Plan: She underwent her first chemotherapy treatment earlier this week. Today her labs showed an increase in her creatinine, phosphorus, and LDH. Dr. Apodaca did recommend that she be admitted for IV hydration and lab monitoring. (2) Mantle cell lymphoma Copies to: IESHA APODACA MD Venous Thromboembolism Antithrombotics Is Pt On Any Antithrombotics?: No Exam Sepsis Risk: No Definite Risk JOSELYN TRAYLOR DO Nov 16, 2017 17:24
[2017-11-16 17:37] LABS: PLATELET COUNT, AUTOMATED 45 K/uL (150-450)
[2017-11-16 19:12] VITALS: BP 94/49
[2017-11-16] MEDS: ACYCLOVIR 200 MG CAP PO SCH (21:33)
[2017-11-16] MEDS: ATORVASTATIN 10 MG TAB PO SCH (21:33)
[2017-11-16 23:15] VITALS: BP 93/44
[2017-11-17] MEDS: NS(*) 0.9% 1000 ML BAG 1,000 ML IV PRN ×4 (00:40→21:41)
[2017-11-17 03:39] VITALS: BP 94/45
[2017-11-17 06:04] LABS: PLATELET COUNT, AUTOMATED 44 K/uL (150-450)
[2017-11-17] MEDS ORDERED: SEVELAMER HCL 800 MG TAB PO ONE (06:35)
[2017-11-17 07:44] VITALS: BP 106/52
[2017-11-17] MEDS: NICOTINE 21 MG/24 HR PATCH TD SCH (08:25)
[2017-11-17] MEDS: ACYCLOVIR 200 MG CAP PO SCH ×2 (08:26→20:32)
[2017-11-17] MEDS: ALLOPURINOL 300 MG TAB PO SCH (08:26)
[2017-11-17] MEDS ORDERED: ENOXAPARIN 40 MG/0.4ML SYR SC SCH (09:00)
[2017-11-17] MEDS ORDERED: NS(*) 0.9% 1000 ML BAG 1,000 ML IV PRN (09:39)
--- NOTE | 2017-11-17 11:03 | Hospitalist Progress Note ---
Subjective Progress Notes Subjective The patient is without specific complaints. UOP exceeding IVF infusion. Physical Exam Vital Signs Date Time Temp Pulse Resp B/P (MAP) Pulse Ox O2 Delivery O2 Flow Rate FiO2 11/17/17 07:44 97.8 73 18 106/52 (70) 93 Nasal Cannula 2.0 Intake and Output 11/18/17 06:59 Intake Total 1236 ml Output Total 750 ml Balance 486 ml Intake Oral 236 ml IV Total 1000 ml Output Urine Total 750 ml General Appearance: Alert, Awake, No Acute Distress Extremities: No Edema Result Diagram: 11/17/1751411/17/17514 Assessment and Plan Problems: (1) Tumor lysis syndrome Assessment & Plan: She underwent her first chemotherapy treatment with rituximab and bendamustine on November 14, 2017. The day of admission (November 17, 2015 ) her labs showed an increase in her creatinine, phosphorus, and LDH. Dr. Aden Pelaez did recommend that she be admitted for IV hydration and lab monitoring. Her creatinine is stable. Potassium is normal. Phosphorus remains high. She has received a dose of Sevelamer this morning and is getting IVF. Will increase the IVF rate to 175cc/hour and follow labs. Her UOP is good. She is hypocalcemic, but not symptomatic. (2) Mantle cell lymphoma Exam Sepsis Risk: No Definite Risk NERI FINK MD Nov 17, 2017 11:03
[2017-11-17 11:28] VITALS: BP 109/55
[2017-11-17 15:38] VITALS: BP 98/48
[2017-11-17 19:51] VITALS: BP 111/53
[2017-11-17] MEDS: ATORVASTATIN 10 MG TAB PO SCH (20:32)
[2017-11-17] MEDS ORDERED: CALCIUM CARBONATE 500 MG CHEW PO PRN (20:40)
[2017-11-17] MEDS ORDERED: ACETAMINOPHEN 500 MG TAB PO PRN (20:40)
[2017-11-17 23:10] VITALS: BP 107/49
[2017-11-18] MEDS: NS(*) 0.9% 1000 ML BAG 1,000 ML IV PRN ×4 (03:31→21:25)
[2017-11-18 03:35] VITALS: BP 115/56
[2017-11-18 06:57] LABS: PLATELET COUNT, AUTOMATED 48 K/uL (150-450)
[2017-11-18 08:20] VITALS: BP 108/56
[2017-11-18] MEDS: NICOTINE 21 MG/24 HR PATCH TD SCH (09:33)
[2017-11-18] MEDS: ALLOPURINOL 300 MG TAB PO SCH (09:33)
[2017-11-18] MEDS: ACYCLOVIR 200 MG CAP PO SCH ×2 (09:34→21:21)
--- NOTE | 2017-11-18 09:49 | Hospitalist Progress Note ---
Subjective Progress Notes Subjective The patient states she had some left upper quadrant pain last evening which has improved with Percocet. Physical Exam Vital Signs Date Time Temp Pulse Resp B/P (MAP) Pulse Ox O2 Delivery O2 Flow Rate FiO2 11/18/17 03:35 97.6 76 18 115/56 (75) 93 Nasal Cannula 1.0 Intake and Output 11/19/17 06:59 Intake Total 120 ml Balance 120 ml Intake Oral 120 ml General Appearance: Alert, Awake, No Acute Distress, Afebrile Neuro: No Gross deficits Cardiovascular: Regular Rate and Rhythm Respiratory: Clear to Auscultation Chest: Other (Port in R upper chest wall is clean and dry without redness or drainage.) GI: Soft and Non-Tender Extremities: Warm, Perfused Psych: Appropriate Mood & Affect Result Diagram: 11/18/1754111/18/17541 Assessment and Plan Problems: (1) Tumor lysis syndrome Assessment & Plan: She underwent her first chemotherapy treatment with rituximab and bendamustine on November 14, 2017. The day of admission (November 17, 2015 ) her labs showed an increase in her creatinine, phosphorus, and LDH. Dr. Aden Pelaez did recommend that she be admitted for IV hydration and lab monitoring. Her creatinine is stable. Potassium is normal. Phosphorus remains high. She has received a dose of Sevelamer this morning and is getting IVF. Will increase the IVF rate to 175cc/hour and follow labs. Her UOP is good. She is hypocalcemic, but not symptomatic. LDH is now normal. Will continue to hydrate and recheck labs in 8 hours. Creatinine remains elevated but is stable. (2) Mantle cell lymphoma Status: Chronic Assessment & Plan: See above. Time Spent on Plan of Care: < 30 min Exam Sepsis Risk: No Definite Risk EULALIA KIM MD Nov 18, 2017 09:49
--- NOTE | 2017-11-18 11:01 | Medical Nutrition Therapy ---
Nutrition Anthropometrics Height (Inches): 62.5 Weight (Pounds): 135 Weight (Calculated Kilograms): 61.292 Tommy Nutrition Score: Probably Inadequate Tommy Nutrition Risk Score: 16 Dietary Referral Nutrition Risk Factors: Unplanned Loss >10lbs Nutrition Risk Comment: Nutritional Diagnosis Nutritional Risk Acuity 2: Head/Neck/GI Cancer Nutritional Risk Acuity 3: Cancer Past Medical History: GERD, acute kidney injury, skin lesions of chest wal, HTN, Lymphoma, abdominal pain. Nutritional Acuity: 2-Moderate Nutrition Diagnosis: Increased Nutrient Needs Nutrition Etiology: Physiological Causes Nutrition Problem/Etiology/Sym: Increased nutrient needs related to physiological causes as evidenced by total protein 4.5 and alb 2.4. Energy Requirement: 1400 (9526-2118) Protein Requirement: 73 (61-73 g/kg) Fluid Requirement: 1830 Diet Type: Diet as Tolerated IAN/REG Nutrition Intervention: Cont diet as ordered, Encourage intake, Obtain Height and Weight Nutrition Monitoring & Eval RD Patient Assessment Time: [address] Assessment Type: RD Assessment Patient Nutrition Acuity: 2-Moderate Follow Up Date: Nov 22, 2017 Nutritional Comment: 11/17 Pt admitted with tumor lysis syndrome. Recently started chemo treatment of mantle cell lymphoma. Please obtain ht and wt for energy need calculations. Currently on IAN with intake of 50% of two meals. Notable labs include low H/H, BUN 47, creatinine 1.6, phos 8.8 and LDH 1218. Will cont to monitor and encourage intake.-EK 11/18 Pt intake variable and goes from meal refusal to 75% intake. Nursing charting decreased appetite. Unable to interview pt at this time. Notable labs include low H/H, BUN 36, creatinine 1.5, phos 6.7, total pro 4.5 and alb 2.4. Will cont to monitor and encourage intake. -SHAI HAYDEN Nov 18, 2017 09:48
[2017-11-18 12:30] VITALS: BP 112/51
[2017-11-18 14:24] VITALS: BP 111/55
[2017-11-18] MEDS: ATORVASTATIN 10 MG TAB PO SCH (21:22)
[2017-11-18 21:25] VITALS: BP 124/56
[2017-11-19] MEDS: NS(*) 0.9% 1000 ML BAG 1,000 ML IV PRN (03:14)
[2017-11-19 03:49] VITALS: BP 113/51
[2017-11-19 05:58] LABS: PLATELET COUNT, AUTOMATED 54 K/uL (150-450)
[2017-11-19 08:09] VITALS: BP 134/59
[2017-11-19] MEDS: NICOTINE 21 MG/24 HR PATCH TD SCH (08:17)
[2017-11-19] MEDS: ALLOPURINOL 300 MG TAB PO SCH (08:17)
[2017-11-19] MEDS: ACYCLOVIR 200 MG CAP PO SCH (08:17)
[2017-11-19] MEDS ORDERED: HEPARIN FLSH (PORT) 500 UN/5ML ONE (09:18)
[2017-11-19] MEDS ORDERED: CALC200T16 PO (09:28)
[2017-11-19] MEDS ORDERED: ACYC-1 PO (09:28)
[2017-11-19] MEDS ORDERED: ALL300 PO (09:28)
[2017-11-19] MEDS ORDERED: OXYC-865 PO (09:28)
--- NOTE | 2017-11-19 09:55 | Hospitalist Depart ---
Discharge Summary Reason for Hosp/Final Diag: (1) Tumor lysis syndrome Status: Acute Hospital Course & Plan: She underwent her first chemotherapy treatment with rituximab and bendamustine on November 14, 2017. The day of admission (November 17, 2015 ) her labs showed an increase in her creatinine, phosphorus, and LDH. Dr. Aden Pelaez did recommend that she be admitted for IV hydration and lab monitoring. Her creatinine is stable/improved. Potassium is normal. Phosphorus remains slightly high, but improved. She has received a dose of Sevelamer. Her UOP has been good. She is mildly hypocalcemic, but not symptomatic. She has been doing very well. She has been eating and drinking well. She will maintain 3L of fluids daily. She will follow up with [facility] in two days for follow up lab. (2) Mantle cell lymphoma Status: Chronic Hospital Course & Plan: See above. Departure Weight (Pounds): 135 Weight (Ounces): 2.0 Result Diagram: 11/19/1752611/19/17526 Item Value Date Time White Blood Count 44.3 k/uL *H 11/16/17 170 Hemoglobin 13.5 g/dL 11/16/17 1703 Hematocrit 40.0 % 11/16/17 170 Platelet Count 45 K/uL *L 11/16/17 170 Platelet Count 44 K/uL *L 11/17/17 0515 Hematocrit 33.9 % L 11/17/17 0515 Hemoglobin 11.4 g/dL L 11/17/17 0515 White Blood Count 18.0 k/uL H 11/17/17 0515 White Blood Count 5.0 k/uL 11/18/17 0542 Hemoglobin 10.7 g/dL L 11/18/17 0542 Hematocrit 32.1 % L 11/18/17 0542 Platelet Count 48 K/uL *L 11/18/17 0542 Sodium Level 141 mmol/L 11/16/17 1703 Potassium Level 5.1 mmol/L H 11/16/17 1703 Chloride Level 108 mmol/L H 11/16/17 1703 Carbon Dioxide Level 18 mmol/L L 11/16/17 1703 Blood Urea Nitrogen 45 mg/dl H 11/16/17 1703 Creatinine 1.50 mg/dl H 11/16/17 1703 Glomerular Filtration Rate Calc 33.9 11/16/17 1703 Random Glucose 104 mg/dl 11/16/17 1703 Calcium Level 8.0 mg/dl L 11/16/17 1703 Phosphorus Level 8.5 mg/dl H 11/16/17 1703 Lactate Dehydrogenase 2026 U/L H 11/16/17 1703 Sodium Level 140 mmol/L 11/17/17 1305 Potassium Level 5.1 mmol/L H 11/17/17 1305 Chloride Level 112 mmol/L H 11/17/17 1305 Carbon Dioxide Level 17 mmol/L L 11/17/17 1305 Blood Urea Nitrogen 44 mg/dl H 11/17/17 1305 Creatinine 1.60 mg/dl H 11/17/17 1305 Glomerular Filtration Rate Calc 31.5 11/17/17 1305 Random Glucose 84 mg/dl 11/17/17 1305 Uric Acid 4.3 mg/dl 11/17/17 1305 Calcium Level 7.3 mg/dl L 11/17/17 1305 Phosphorus Level 8.0 mg/dl H 11/17/17 1305 Total Bilirubin 0.8 mg/dl 11/17/17 1305 Aspartate Amino Transf (AST/SGOT) 30 U/L 11/17/17 1305 Alanine Aminotransferase (ALT/SGPT) 27 U/L 11/17/17 1305 Alkaline Phosphatase 49 U/L 11/17/17 1305 Total Protein 4.7 gm/dl L 11/17/17 1305 Albumin 2.6 g/dl L 11/17/17 1305 Lactate Dehydrogenase 1218 U/L H 11/17/17 0515 Phosphorus Level 8.8 mg/dl H 11/17/17 0515 Albumin 2.4 g/dl L 11/18/17 0542 Total Protein 4.5 gm/dl L 11/18/17 0542 Lactate Dehydrogenase 724 U/L 11/18/17 0542 Alkaline Phosphatase 50 U/L 11/18/17 0542 Alanine Aminotransferase (ALT/SGPT) 28 U/L 11/18/17 0542 Aspartate Amino Transf (AST/SGOT) 26 U/L 11/18/17 0542 Total Bilirubin 0.8 mg/dl 11/18/17 0542 Magnesium Level 1.8 mg/dl 11/18/17 0542 Phosphorus Level 6.7 mg/dl H 11/18/17 0542 Calcium Level 7.1 mg/dl L 11/18/17 0542 Uric Acid 4.3 mg/dl 11/18/17 0542 Random Glucose 78 mg/dl 11/18/17 0542 Glomerular Filtration Rate Calc 33.9 11/18/17 0542 Creatinine 1.50 mg/dl H 11/18/17 0542 Blood Urea Nitrogen 36 mg/dl H 11/18/17 0542 Carbon Dioxide Level 17 mmol/L L 11/18/17 0542 Chloride Level 112 mmol/L H 11/18/17 0542 Potassium Level 4.8 mmol/L 11/18/17 0542 Sodium Level 141 mmol/L 11/18/17 0542 Albumin 2.3 g/dl L 11/19/17 05 Total Protein 4.3 gm/dl L 11/19/17 05 Lactate Dehydrogenase 519 U/L 11/19/17 05 Alkaline Phosphatase 44 U/L 11/19/17 05 Alanine Aminotransferase (ALT/SGPT) 27 U/L 11/19/17 0527 Aspartate Amino Transf (AST/SGOT) 20 U/L 11/19/17 05 Total Bilirubin 1.0 mg/dl 11/19/17 05 Phosphorus Level 5.2 mg/dl H 11/19/17 05 Calcium Level 7.2 mg/dl L 11/19/17 05 Condition: Improved Discharge: Home Follow-Up Labs: Other (CBC, CMP, magnesium, phosphorus at [facility] on Sunday11/21/17.) Time Spent: > 30 min Discharge Instructions Home Meds Active Scripts Calcium Carbonate (CALCIUM ANTACID) 200 Mg Tab.chew, 1000 MG PO Q8H Y for HEARTBURN, #100 TAB.CHEW 1 Refill Prov:PRECIOUS KIM MD 11/19/17 Acyclovir (ACYCLOVIR) 200 Mg Capsule, 400 MG PO BID, #60 CAPSULE 1 Refill Prov:PRECIOUS KIM MD 11/19/17 Allopurinol (ZYLOPRIM 300 MG TAB (OR EQUIV)) 300 Mg Tab, 300 MG PO QDAY, #30 TAB 1 Refill Prov:PRECIOUS KIM MD 11/19/17 Oxycodone Hcl/Acetaminophen (PERCOCET 5-325 MG TABLET) 1 Each Tablet, 1 EACH PO Q6H Y for PAIN for 30 Days, TAB Prov:PRECIOUS KIM MD 11/19/17 Bisacodyl (DULCOLAX) 10 Mg Supp.rect, 10 MG RC DAILY Y for constipation for 30 Days, #10 SUPP.RECT Prov:LUCÍA MEDINA MD 10/23/17 Reported Medications Atorvastatin Calcium (LIPITOR) 20 Mg Tablet, 1 TAB PO QHS, TAB 11/16/17 Estrogens, Conjugated (PREMARIN) 0.9 Mg Tablet, 0.9 MG PO 3XW 11/16/17 Glucosamine Sulfate 2KCL (GLUCOSAMINE SULFATE) 1,000 Mg Tablet, 1 TAB PO BID 10/08/17 Discontinued Scripts Atorvastatin Calcium (LIPITOR) 20 Mg Tablet, 1 TAB PO QDAY, #90 TAB 4 Refills Prov:BREANNE MCDANIEL MD 05/22/17 Hydromorphone Hcl (DILAUDID) 2 Mg Tablet, 1-2 MG PO Q6H Y for pain for 7 Days, # 28 TAB Prov:LUCÍA MEDINA MD 11/07/17 Oxycodone Hcl/Acetaminophen (OXYCODONE-ACETAMINOPHEN 5-325) 1 Each Tablet, 1 EACH PO QID for 10 Days, #30 TAB Prov:LUCÍA MEDINA MD 10/30/17 Estrogens, Conjugated (PREMARIN) 0.9 Mg Tablet, 1 TAB PO QDAY, #90 TAB Prov:CARIDAD LONDON MD 07/27/17 Benazepril Hcl (BENAZEPRIL HCL) 10 Mg Tab, 1 TAB PO QDAY, #90 TAB 4 Refills Prov:LUCÍA MEDINA MD 10/09/17 Follow up Referrals: Hematology and Oncology @ [facility] with Iesha Benton Md Diet: Regular (3L of fluid/water daily) Activity: As Tolerated, No Exertion Special Instructions: Follow up with [facility] on Sun11/21/17 as planned (lab at that time). Call sooner if any problems (or go to ER). Copies to: IESHA BENTON MD Venous Thromboembolism Antithrombotics Is Pt On Any Antithrombotics?: No PRECIOUS KIM MD Nov 19, 2017 09:55
[2017-11-20] MEDS ORDERED: INFLUENZA VIRUS VAC 0.5 ML SYR IM ONLY ONE (09:00)
[2017-11-21] MEDS ORDERED: PROC10TA4 PO (16:02)
[2017-11-21] MEDS ORDERED: ONDA4TAB PO (16:02)
[2017-11-21] MEDS ORDERED: LORA-1455 PO (16:02)
== END 2017-11-19 10:15 | disposition home or self-care (01) | DRG 683 ==
LOC: MED 15:02
PROVIDERS: ADMIT Family Medicine; ATTEND Family Medicine
DX: E88.3 Tumor lysis syndrome (principal); C83.10 Mantle cell lymphoma, unspecified site; E83.51 Hypocalcemia; I10 Essential (primary) hypertension; T45.1X5A Adverse effect of antineoplastic and immunosuppressive drugs, initial encounter; Z88.0 Allergy status to penicillin; Z88.2 Allergy status to sulfonamides; Z92.21 Personal history of antineoplastic chemotherapy; Z90.710 Acquired absence of both cervix and uterus
CPT/HCPCS: 36415; 82040; 82247; 82310; 82374; 82435; 82565; 82947; 83615; 83735; 84075; 84100; 84132; 84155; 84295; 84450; 84460; 84520; 84550; 85025; J1650; J7030

== ENCOUNTER 2017-11-23 15:40 | Inpatient (IN) | payer MEDICARE ==
[~2017-11-23] VITALS: Ht 165.1 cm; Wt 61.3 kg
[~2017-11-23 15:40] MED LIST changes: +ACYC-1 PO; +ALL300 PO; +CALC200T16 PO; +LORA-1455 PO; +ONDA4TAB PO; +OXYC-865 PO; +PROC10TA4 PO
[2017-11-23 16:04] VITALS: BP 104/49
[2017-11-23] MEDS ORDERED: ONDANSETRON 4 MG/2 ML VIAL IVP PRN (18:30)
[2017-11-23] MEDS ORDERED: ONDANSETRON 4 MG TAB PO PRN (18:30)
[2017-11-23] MEDS ORDERED: ACETAMINOPHEN 325 MG TAB PO PRN (18:30)
[2017-11-23] MEDS ORDERED: LORazepam 0.5 MG TAB PO PRN (18:30)
--- NOTE | 2017-11-23 19:11 | History & Physical ---
History of Present Illness Chief Complaint Fever, dysuria and weakness after having diarrhea for 3 days History of Present Illness Mrs. Asencio is a 72 y.o. female with PMH of HTN, GERD, Dyslipidemia, Trigeminal Neuralgia and recently diagnosed Mantle Cell Lymphoma stage-IV revealed by BMA biopsy on 10/29/17. She was started on Rituximab and Bendamustine on 11/14/[address] Apodaca. Post Chemo. she developed Tumor Lysis Syndrome with JUANIS. She was hospitalized and treated on 11/16/17. Her residual kidney function with Cr. 1.5 and GFR 34ml/min. She also developed Neutropenia and was started on Neupogen. Today she presented to the Cancer Center with weakness, fever 100.4 and dysuria after having diarrhea for 3 days. Patient was evaluated by VESNA Wagner and she discussed the case with me. She was concerned about her neutropenia and fever and would like to admit the patient to the hospital. I accepted the patient and admitted for further evaluation and management. Her repeat CBC revealed normal WBC 8.5 with Polys 92%. Her K level was 3.2 and Mag level was 1.6. History Home Meds Active Scripts Calcium Carbonate (CALCIUM ANTACID) 200 Mg Tab.chew, 1000 MG PO Q8H Y for HEARTBURN, #100 TAB.CHEW 1 Refill Prov:PRECIOUS KIM MD 11/19/17 Acyclovir (ACYCLOVIR) 200 Mg Capsule, 400 MG PO BID, #60 CAPSULE 1 Refill Prov:PRECIOUS KIM MD 11/19/17 Allopurinol (ZYLOPRIM 300 MG TAB (OR EQUIV)) 300 Mg Tab, 300 MG PO QDAY, #30 TAB 1 Refill Prov:PRECIOUS KIM MD 11/19/17 Oxycodone Hcl/Acetaminophen (PERCOCET 5-325 MG TABLET) 1 Each Tablet, 1 EACH PO Q6H Y for PAIN for 30 Days, TAB Prov:PRECIOUS KIM MD 11/19/17 Bisacodyl (DULCOLAX) 10 Mg Supp.rect, 10 MG RC DAILY Y for constipation for 30 Days, #10 SUPP.RECT Prov:LUCÍA MEDINA MD 10/23/17 Reported Medications Lorazepam (ATIVAN) 0.5 Mg Tablet, 0.5 MG PO Q4-6H Y for NAUSEA/VOMITING Take 1 to 2 tablets PRN anxiety/nausea/vomiting 11/21/17 Prochlorperazine Maleate (Compazine) 10 Mg Tablet, 10 MG PO Q6H Y for NAUSEA/ VOMITING 11/21/17 Ondansetron (ZOFRAN ODT) 4 Mg Tab.rapdis, 8 MG PO Q8H Y for NAUSEA, TAB.CARLOS 11/21/17 Atorvastatin Calcium (LIPITOR) 20 Mg Tablet, 1 TAB PO QHS, TAB 11/16/17 Estrogens, Conjugated (PREMARIN) 0.9 Mg Tablet, 0.9 MG PO 3XW 11/16/17 Glucosamine Sulfate 2KCL (GLUCOSAMINE SULFATE) 1,000 Mg Tablet, 1 TAB PO BID 10/08/17 Discontinued Scripts Atorvastatin Calcium (LIPITOR) 20 Mg Tablet, 1 TAB PO QDAY, #90 TAB 4 Refills Prov:BREANNE MCDANIEL MD 05/22/17 Hydromorphone Hcl (DILAUDID) 2 Mg Tablet, 1-2 MG PO Q6H Y for pain for 7 Days, # 28 TAB Prov:LUCÍA MEDINA MD 11/07/17 Oxycodone Hcl/Acetaminophen (OXYCODONE-ACETAMINOPHEN 5-325) 1 Each Tablet, 1 EACH PO QID for 10 Days, #30 TAB Prov:LUCÍA MEDINA MD 10/30/17 Estrogens, Conjugated (PREMARIN) 0.9 Mg Tablet, 1 TAB PO QDAY, #90 TAB Prov:CARIDAD LONDON MD 07/27/17 Allergies: Coded Allergies: Sulfa (Sulfonamide Antibiotics) (Unverified Allergy, Unknown, UNKNOWN, 03/28) EHR Conversion amoxicillin (Unverified Allergy, Unknown, UNKNOWN, 10/18/17) EHR Conversion Penicillins (Verified Adverse Reaction, Intermediate, SEVERE DIARRHEA, 03/28) ? Hives Hx Smoking: Yes (1ppd) Smoking Status: Current: Every Day Smoker Exposure to Second Hand Smoke?: Yes Caffeine Intake: Coffee, Tea Caffeine/Cups Per Day: 1CPD Hx Alcohol Use: Yes Hx Substance Use Disorder: No Social Drug Use: Never History of IV Drug Use: No Review of Systems Constitutional: Fever, No Weight Loss, No Weight Gain, No Chills Neurological: Weakness, No Confusion, No Dizziness ENT: No Sore Throat Cardiovascular: No Chest Pain, No Palpitations Respiratory: No Shortness of Breath, No Cough Gastrointestinal: No Nausea, No Vomiting, No Diarrhea, No Constipation, No Abdominal Pain Genitourinary: Dysuria, No Hematuria Musculoskeletal: No Pain, No Sprain, No Strain Psychiatric: No Depression, No Anxiety Exam Vital Signs Vital Signs Date Time Temp Pulse Resp B/P (MAP) Pulse Ox O2 Delivery O2 Flow Rate FiO2 11/23/17 16:11 93 Nasal Cannula 2.5 11/23/17 16:04 100.4 100 16 104/49 (67) General Appearance: Alert, Awake, No Acute Distress, Other (low grade fever) Neuro: No Gross deficits Eyes: PERRLA ENT: Normal Neck: No Masses Cardiovascular: Normal Rhythm & Peripheral Pulses, No Edema Respiratory: No Respiratory Distress GI: Abd Soft and Non-Tender : Normal, No CVA Tenderness Musculoskeletal: No Weakness/Pain Extremities: Soft and Non Tender, Warm Integumentary: Skin Intact without Lesion / Mass Psych: Alert & Oriented X3, Appropriate Mood & Affect Medical Decision Making Data Points WBC=8.5 Polys=92% Hb=11.5 Hoc=008 K=3.2 Mag=1.6 BUN/Cr=14/1.5 GFR=34ml/min Pre-Admit Course Medical Record Review: Yes Assessment and Plan Problems: (1) UTI (urinary tract infection) Status: Acute Assessment & Plan: She recently had diarrhea and now she comes with fever and dysuria. I will admit her to medical floor with observation I will start get U/A and UCX I will start Levaquin 250mg IV qd I will start IVF NS with KCL at 150ml/h I will get CMP and Mag level in am. I will send stool for Guaiac I will get CXR I will place her on SCD's (2) Hypokalemia, gastrointestinal losses Status: Acute Assessment & Plan: Most likely due to her diarrhea with also loss of Mag. I will replace her K and Mag loss with KCL 20meq in NS at 150ml/h I will also give her Mag. Sulphate 2gm IV I will get CMP and Mag level in am (3) Acute kidney injury Status: Acute Assessment & Plan: Her JUANIS was due to TLS after chemo with uric acid crystals. I will continue IVF NS at 150ml/h I will repeat CMP in am (4) Mantle cell lymphoma Status: Chronic Assessment & Plan: Therapy as per Heme/onc I will resume her home medications. Time Spent on Plan of Care: > 30 min Copies to: LUCÍA MEDINA MD; ANDRAE GREENC, ONC; IESHA APODACA MD Venous Thromboembolism VTE Risk Physician Assess for VTE Risk: Yes Patient's VTE Risk: Low VTE Diagnostic Test 2 Days Prior to Admit: No Antithrombotics Is Pt On Any Antithrombotics?: No Exam Sepsis Risk: No Definite Risk Problem Qualifiers (1) UTI (urinary tract infection): Urinary tract infection type: acute cystitis DORIS NUÑEZ MD Nov 23, 2017 19:10
[2017-11-23 19:18] VITALS: BP 105/49
[2017-11-23] MEDS ORDERED: MAGNESIUM SUL* 2 GM/50 ML IVPB 50 ML IVPB ONE (19:30)
[2017-11-23] MEDS: KCL/NS* 20 MEQ/1000 ML PREMIX 1,000 ML IV SCH (19:39)
[2017-11-23 20:31] VITALS: Ht 165.1 cm; Wt 61.3 kg
[2017-11-23] MEDS ORDERED: NICOTINE 21 MG/24 HR PATCH TD SCH (21:00)
[2017-11-23] MEDS ORDERED: ATORVASTATIN 10 MG TAB PO SCH (21:00)
[2017-11-23] MEDS ORDERED: LEVOFLOXACIN/D5W 250 MG/50 ML 50 ML IVPB SCH (21:00)
--- NOTE | 2017-11-23 21:55 | RADIOLOGY IMAGING REPORT ---
FACILITY: [facility] PATIENT NAME: Susan Asencio : 1945 MR: [id number] V: [id number] EXAM DATE: ORDERING PHYSICIAN: DORIS NUÑEZ TECHNOLOGIST: Location: [facility] [place] Patient: Susan Asencio : 1945 Visit/Account:[id number] Date of Sevice: 11/23/2017 CHEST: Indication: Fever and dyspnea. Technique: Frontal and lateral views were obtained. Comparison: 11/01/2017 Skeletal and soft tissue structures: Intact and unremarkable. Heart and mediastinum: Within normal limits. The chemotherapy port catheter remains in satisfactory p osition. Lung alcocer: There are minimal linear opacities at both bases, which appear chronic. No segmental inf iltrate or consolidation is identified. Pleural spaces: A small left effusion is present. No evidence of pneumothorax. Impression: No acute parenchymal process is clearly identified. There is a small left pleural effusio n. Report Dictated By: Guanakito Edmondson MD at 11/23/2017 9:48 PM Report E-Signed By: Guanakito Edmondson MD at 11/23/2017 9:50 PM WSN:[id number]
[2017-11-24 03:38] VITALS: BP 96/47
[2017-11-24] MEDS: KCL/NS* 20 MEQ/1000 ML PREMIX 1,000 ML IV SCH (05:08)
[2017-11-24 06:26] LABS: PLATELET COUNT, AUTOMATED 153 K/uL (150-450)
[2017-11-24 08:10] VITALS: BP 110/47
[2017-11-24] MEDS ORDERED: ALLOPURINOL 300 MG TAB PO SCH (09:00)
[2017-11-24] MEDS ORDERED: LEVO250T55 PO (10:28)
--- NOTE | 2017-11-24 10:36 | Hospitalist Depart ---
Discharge Summary Reason for Hosp/Final Diag: (1) UTI (urinary tract infection) Status: Acute Hospital Course & Plan: Mrs. Asencio is a 72 y.o. female with PMH of HTN, GERD, Dyslipidemia, Trigeminal Neuralgia and recently diagnosed Mantle Cell Lymphoma stage-IV revealed by BMA biopsy on 10/29/17. She was started on Rituximab and Bendamustine on 11/14/[address] Apodaca. Post Chemo. she developed Tumor Lysis Syndrome with JUANIS. She was hospitalized and treated on 11/16/17. Her residual kidney function with Cr. 1.5 and GFR 34ml/min. She also developed Neutropenia and was started on Neupogen. Today she presented to the Cancer Center with weakness, fever 100.4 and dysuria after having diarrhea for 3 days. Patient was evaluated by VESNA Wagner and she discussed the case with me. She was concerned about her neutropenia and fever and would like to admit the patient to the hospital. I accepted the patient and admitted for further evaluation and management. Her repeat CBC revealed normal WBC 8.5 with Polys 92%. Her K level was 3.2 and Mag level was 1.6. She recently had diarrhea and now she comes with fever and dysuria. Plan: I will admit her to medical floor with observation I will start get U/A and UCX I will start Levaquin 250mg IV qd I will start IVF NS with KCL at 150ml/h I will get CMP and Mag level in am. I will send stool for Guaiac I will get CXR I will place her on SCD's 11/24: Patient is doing well except one episode of loose stool. Her stool C.diff was negative. Her WBC are 6K, K is 3.5 and Mag is 2.2. I have advised her to take Immodiun as needed max 4 doses She wall continue her Levaquin 250mg po qd for 6 days. She is being d/c'd today and f/u with cancer center. (2) Hypokalemia, gastrointestinal losses Status: Resolved Hospital Course & Plan: Most likely due to her diarrhea with also loss of Mag. I will replace her K and Mag loss with KCL 20meq in NS at 150ml/h I will also give her Mag. Sulphate 2gm IV I will get CMP and Mag level in am 11/24: Her electrolytes were replaced and back to normal today (3) Acute kidney injury Status: Acute Hospital Course & Plan: Her JUANIS was due to TLS after chemo with uric acid crystals. I will continue IVF NS at 150ml/h I will repeat CMP in am 11/24: Her kidney function has also improved to Cr=1.2 with GFR 44ml/min (4) Mantle cell lymphoma Status: Chronic Hospital Course & Plan: Therapy as per Heme/onc I will resume her home medications. Departure Weight (Pounds): 135 Weight (Ounces): 2.0 Result Diagram: 11/24/1755511/24/17555 Condition: Improved Discharge: Home, Self Care Discharge Code Status: Full Code Time Spent: < 30 min Discharge Instructions Home Meds Active Scripts Calcium Carbonate (CALCIUM ANTACID) 200 Mg Tab.chew, 1000 MG PO Q8H Y for HEARTBURN, #100 TAB.CHEW 1 Refill Prov:PRECIOUS KIM MD 11/19/17 Acyclovir (ACYCLOVIR) 200 Mg Capsule, 400 MG PO BID, #60 CAPSULE 1 Refill Prov:PRECIOUS KIM MD 11/19/17 Allopurinol (ZYLOPRIM 300 MG TAB (OR EQUIV)) 300 Mg Tab, 300 MG PO QDAY, #30 TAB 1 Refill Prov:PRECIOUS KIM MD 11/19/17 Oxycodone Hcl/Acetaminophen (PERCOCET 5-325 MG TABLET) 1 Each Tablet, 1 EACH PO Q6H Y for PAIN for 30 Days, TAB Prov:PRECIOUS KIM MD 11/19/17 Bisacodyl (DULCOLAX) 10 Mg Supp.rect, 10 MG RC DAILY Y for constipation for 30 Days, #10 SUPP.RECT Prov:LUCÍA MEDINA MD 10/23/17 Reported Medications Lorazepam (ATIVAN) 0.5 Mg Tablet, 0.5 MG PO Q4-6H Y for NAUSEA/VOMITING Take 1 to 2 tablets PRN anxiety/nausea/vomiting 11/21/17 Prochlorperazine Maleate (Compazine) 10 Mg Tablet, 10 MG PO Q6H Y for NAUSEA/ VOMITING 11/21/17 Ondansetron (ZOFRAN ODT) 4 Mg Tab.rapdis, 8 MG PO Q8H Y for NAUSEA, TAB.CARLOS 11/21/17 Atorvastatin Calcium (LIPITOR) 20 Mg Tablet, 1 TAB PO QHS, TAB 11/16/17 Estrogens, Conjugated (PREMARIN) 0.9 Mg Tablet, 0.9 MG PO 3XW 11/16/17 Glucosamine Sulfate 2KCL (GLUCOSAMINE SULFATE) 1,000 Mg Tablet, 1 TAB PO BID 10/08/17 Discontinued Scripts Atorvastatin Calcium (LIPITOR) 20 Mg Tablet, 1 TAB PO QDAY, #90 TAB 4 Refills Prov:BREANNE MCDANIEL MD 05/22/17 Diet: Regular Activity: As Tolerated Copies to: LUCÍA MEDINA MD; IESHA APODACA MD Venous Thromboembolism Antithrombotics Is Pt On Any Antithrombotics?: No Problem Qualifiers (1) UTI (urinary tract infection): Urinary tract infection type: acute cystitis DORIS NUÑEZ MD Nov 24, 2017 10:36
[2017-11-24] MEDS ORDERED: HEPARIN FLSH (PORT) 500 UN/5ML ONE (10:43)
[2017-11-26] MEDS ORDERED: ESTROGENS CONJ 0.3 MG TAB PO SCH (09:00)
== END 2017-11-24 11:15 | disposition home or self-care (01) | DRG 689 ==
LOC: MED 15:40
PROVIDERS: ADMIT Specialist; ATTEND Specialist
DX: N30.00 Acute cystitis without hematuria (principal); E88.3 Tumor lysis syndrome; N17.9 Acute kidney failure, unspecified; C83.10 Mantle cell lymphoma, unspecified site; E87.6 Hypokalemia; I10 Essential (primary) hypertension; K21.9 Gastro-esophageal reflux disease without esophagitis; E78.5 Hyperlipidemia, unspecified; G50.0 Trigeminal neuralgia; D70.9 Neutropenia, unspecified; F17.210 Nicotine dependence, cigarettes, uncomplicated; T45.1X5A Adverse effect of antineoplastic and immunosuppressive drugs, initial encounter; R50.81 Fever presenting with conditions classified elsewhere; Z88.0 Allergy status to penicillin; Z88.2 Allergy status to sulfonamides
CPT/HCPCS: 71046; 82310; 82374; 82435; 82565; 82947; 83735; 84132; 84295; 84520; 85025; 87324; 87449; J1956; J3475; J3480

== ENCOUNTER 2017-12-17 09:15 | Outpatient (RCR) | payer MEDICARE ==
--- NOTE | 2017-11-14 14:20 | PT INITIAL EVALUATION ---
MEDICAL DIAGNOSIS: Mantel Cell Lymphoma TREATMENT DIAGNOSIS: Mantel Cell Lymphoma DATE OF ONSET: 11/14/17 SUBJECTIVE: Susan is a 72 year old female presenting to oncology rehabilitation for education and treatment following recent diagnosis of likely mantel cell lymphoma. Pt is starting oncology treatment today with a chemotherapy regime consisting of Rituximab, Bendamustine and Neulasta. At this time pt has frequent L abdominal pain and low back pain secondary to splenomegaly, hilar adenopathy, and mediastinal adenopathy. Pt also has imaging showing left internal mammary lymph node activity. Pt reports occasional shortness of breath with incresed pain with forceful inspiration or yawning on the L side. Pt does not rate pain, but reports that it keeps her awake many times and she constantly finds it difficult to be comfortable with resting. Pt is on oxygen as needed. Pt's is present for education on physical side- effects from treatment and associated with the diagnosis. Pt reports that she already feels very weak and has lost 30 pounds over the last couple months secondary to nausea and pain. REHAB PROBLEM LIST: Increased Pain Decreased Strength Decreased Endurance Decreased Function Decreased ADL's Decreased Mobility PREVIOUS MEDICAL HISTORY: Pt has a history of L meniscal debridement, See EMR OBJECTIVE: ROM: UE ROM: Full in all motions with pain at end range flexion and abduction in the LUQ with stretch. LE ROM: WFL Strength: LE MMT: Hip: Flexion: L 4-/5, R 4/5, Ext: 4+/5 B, Abd: 5/5 B, Add: 5/ 5 B. Knee: Flexion: 4+/5 B, Ext: 4+/5. Mobility: ECOG Performance Status: Grade 3 Other Objective Findings: FACT-G: PWB: , SWB: , EWB: , FWB: , Total: 86/108 ASSESSMENT: Susan shows signs and symptoms consistent with generalized weakness and pain associated with diagnosis of mantel cell lymphoma. Physical therapy is indicated for this patient for improved outcomes with ongoing oncological intervention as well as to address the above listed impairments for improved function with ADL's while undergoing treatment. Short Term Goals In 2 MO pt will improve ECOG performance status to grade 2 for improved outcomes with ongoing oncological intervention as well as increased function with ADL's. In 2 MO pt will improve LE MMT to 4/5 in all major muscle groups for improved functional mobility. In 4 MO pt will improve ECOG performance status to grade 2 for improved outcomes with ongoing oncological intervention as well as increased function with ADL's. In 4 MO pt will maintain FACT-G score of 85 or greater for maintenance of well- being status with ongoing oncological intervention. Patient's Goals Maintain function with ADL's. PLAN: Patient to be seen for Manual Therapy/STM/MET Strengthening/condition Ice/Heat Range of Motion Spinal Stabilization Ultrasound Stretching Iontophoresis Neuromuscular Re-ed Closed Chain Program Electrical Stim Posture/Body mechanics Gait Trg/Balance Trg Biofeedback Home Exercise Program Mech./Manual Traction Therapeutic Activities Pelvic Floor 1x/Week for 4 Months If you have any questions, comments, or concerns about this report or plan, please contact me at . Thank you, Nora Garcia, PT, DPT, CLT MTDD
[2017-11-23 20:31] VITALS: BMI 22.5
[~2017-12-17 09:15] MED LIST changes: -BENA10TA4 PO; +BENA10TA55 PO; +LEVO250T55 PO; +MECL25TA9 PO
--- NOTE | 2017-12-18 08:33 | PT PLAN OF CARE ---
Physician: Domonique Cordoba MD Patient is being seen: 1-2x/MO Therapist: Nora Garcia, PT, DPT, CLT Medical Diagnosis: Mantel Cell Lymphoma Treatment Diagnosis: Mantel Cell Lymphoma Date of Onset: 11/14/17 Date of Initial Evaluation: 11/14/17 Date patient was last seen: 12/17/17 Number of treatments: 2 Number of cancellations/No shows: 0 INTERVENTIONS: Manual Therapy/STM/MET Strengthening/condition Ice/Heat Range of Motion Spinal Stabilization Ultrasound Stretching Iontophoresis Neuromuscular Re-ed Closed Chain Program Electrical Stim Posture/Body mechanics Gait Trg/Balance Trg Biofeedback Home Exercise Program Mech./Manual Traction Therapeutic Activities Pelvic Floor GOALS: In 2 MO pt will improve ECOG performance status to grade 2 for improved outcomes with ongoing oncological intervention as well as increased function with ADL's. In 2 MO pt will improve LE MMT to 4/5 in all major muscle groups for improved functional mobility. In 4 MO pt will improve ECOG performance status to grade 2 for improved outcomes with ongoing oncological intervention as well as increased function with ADL's. PATIENT'S GOAL: Maintain function with ADL's. Status of Patient's Goals: In Progress Patient Compliance: Poor Prognosis: Fair Reasons for continuing therapy: Susan shows decline in functional status with decreased mobility, function and fatigue. Pt and spouse admitted poor compliance with HEP and maintenance of performance status as previously discussed secondary to low energy level. PT referred pt to dietitian to address caloric intake discrepancy resulting in generalized increase in fatigue. Additionally PT reviewed low level AROM exercises with patient to maintain function as well as improve blood flow throughout for improved function with ADL 's. Oncology [employer] consulted concerning any alterations to improve pt QOL with ongoing treatment as well as address potential side-effects including pt skin irritation. Further PT is indicated to slowly progress pt to higher functioning with ADL's and increased mobility. Posture: Rounded thoracic with forward shoulders ROM: UE ROM: Full in all motions with pain at end range flexion and abduction in the LUQ with stretch. LE ROM: WFL Strength: LE MMT: Hip: Flexion: L 4-/5, R 4/5, Ext: 4+/5 B, Abd: 5/5 B, Add: 5/ 5 B. Knee: Flexion: 4+/5 B, Ext: 4+/5. Special Tests: FACT-G (Eval): PWB: 23/28, SWB: , EWB: , FWB: , Total: 86/108 Mobility: ECOG Performance Status: Grade 3 If you have any questions or concerns, please feel free to contact me at . Thank you, Nora Garcia, PT, DPT, CLT MTDD
[2017-12-18] MEDS ORDERED: TRIA15CR40 TP (15:37)
--- NOTE | 2018-01-25 10:03 | PT PLAN OF CARE ---
Physician: Domonique Cordoba MD Patient is being seen: 1-2x/MO Therapist: Nora Garcia, PT, DPT, CLT Medical Diagnosis: Mantel Cell Lymphoma Treatment Diagnosis: Mantel Cell Lymphoma Date of Onset: 11/14/17 Date of Initial Evaluation: 11/14/17 Date patient was last seen: 12/17/17 Number of treatments: 2 Number of cancellations/No shows: 0 INTERVENTIONS: Manual Therapy/STM/MET Strengthening/condition Ice/Heat Range of Motion Spinal Stabilization Ultrasound Stretching Iontophoresis Neuromuscular Re-ed Closed Chain Program Electrical Stim Posture/Body mechanics Gait Trg/Balance Trg Biofeedback Home Exercise Program Mech./Manual Traction Therapeutic Activities Pelvic Floor GOALS: In 2 MO pt will improve ECOG performance status to grade 2 for improved outcomes with ongoing oncological intervention as well as increased function with ADL's. In 2 MO pt will improve LE MMT to 4/5 in all major muscle groups for improved functional mobility. In 4 MO pt will improve ECOG performance status to grade 2 for improved outcomes with ongoing oncological intervention as well as increased function with ADL's. PATIENT'S GOAL: Maintain function with ADL's. Status of Patient's Goals: In Progress Patient Compliance: Poor Prognosis: Fair Reasons for discharge from therapy: Susan is to discharge from physical therapy at this time secondary to pt preference with declining medical condition. At the time of discharge pt showed decline in functional status with decreased mobility, function and fatigue. Pt and spouse admitted poor compliance with HEP and maintenance of performance status as previously discussed secondary to low energy level. PT referred pt to dietitian to address caloric intake discrepancy resulting in generalized increase in fatigue. Additionally PT reviewed low level AROM exercises with patient to maintain function as well as improve blood flow throughout for improved function with ADL 's. Oncology MODELING ANALYST consulted concerning any alterations to improve pt QOL with ongoing treatment as well as address potential side-effects including pt skin irritation. Pt is to seek PT at a later time if preferred to address deficits in fatigue and functional mobility. Posture: Rounded thoracic with forward shoulders ROM: UE ROM: Full in all motions with pain at end range flexion and abduction in the LUQ with stretch. LE ROM: WFL Strength: LE MMT: Hip: Flexion: L 4-/5, R 4/5, Ext: 4+/5 B, Abd: 5/5 B, Add: 5/ 5 B. Knee: Flexion: 4+/5 B, Ext: 4+/5. Special Tests: FACT-G (Eval): PWB: , SWB: , EWB: , FWB: , Total: 86/108 Mobility: ECOG Performance Status: Grade 3 If you have any questions or concerns, please feel free to contact me at [phone]. Thank you, Nora Garcia, PT, DPT, CLT MTDD
== END 2018-02-12 ==
LOC: PT 09:15
PROVIDERS: ATTEND Family Medicine
DX: C83.10 Mantle cell lymphoma, unspecified site (principal); R10.9 Unspecified abdominal pain; M54.5 Low back pain; R16.1 Splenomegaly, not elsewhere classified; R59.0 Localized enlarged lymph nodes; R06.02 Shortness of breath; R11.0 Nausea; R53.1 Weakness
CPT/HCPCS: 97161

== ENCOUNTER 2018-01-22 13:00 | Outpatient (RCR) | payer MEDICARE ==
[2017-10-26 14:37] VITALS: BP 124/66
--- NOTE | 2017-10-26 18:46 | ONCOLOGY CONSULTATION ---
EVENT DATE: October 25, 2017 REFERRING PHYSICIAN ER Team REASON FOR CONSULTATION Evaluation and management of lymphoma. HISTORY OF PRESENT ILLNESS Patient is a 72-year-old female who presented to the emergency department at [facility] in [place], [place] with left-sided abdominal pain on and off for the last few months. During her evaluation the patient was found to have lymphocytosis with 71% lymphocytes, 20% neutrophils and fullness in the left upper quadrant due to splenomegaly suspicious for lymphoma, so the patient had a CT chest, abdomen and pelvis done on October 18, 2017 which showed bulky mediastinal and bilateral hilar adenopathy, in addition to massive retroperitoneal mesenteric adenopathy and periportal adenopathy. Massive splenomegaly was also noted. There was a mass effect on the mid splenic vein by the lymph node mass. There was extensive honeycombing in the right lower lobe adjacent irregular cavitary lesion likely chronic. There was also noted 5 mm subpleural noncalcified nodule in the right lower lobe. 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 PAST MEDICAL HISTORY 1. Trigeminal neuralgia. 2. Hypertension. 3. Hyperlipidemia. 4. GERD. PAST SURGICAL HISTORY 1. Tonsillectomy. 2. Surgery for trigeminal neuralgia. 3. Appendectomy. 4. Hysterectomy. 5. Cochlear implant surgery. 6. Surgery for left ankle fracture. FAMILY HISTORY Mother had lung cancer. SOCIAL HISTORY Patient is with no children. She is a homemaker. She smoked one and a half packs a day for 50 years. She drinks wine and beer two to three a day for a long time. Denies any abuse of illicit drugs. CURRENT MEDICATIONS 1. Percocet 5/325 mg tablet q.6 hourly p.r.n. for pain. 2. Benazepril hydrochloride 10 mg daily. 3. Amlodipine 5 mg daily. 4. Glucosamine sulfate 1000 mg tablet twice daily. 5. Premarin 0.9 mg tablet daily. 6. Lipitor 20 mg daily. 7. Calcium with vitamin D one tablet daily. ALLERGIES 1. PENICILLIN DERIVATIVES. 2. AMOXICILLIN which caused diarrhea. 3. SULFA, which does not know the reaction. REVIEW OF SYSTEMS CONSTITUTIONAL: The patient lost about 20 pounds lately. Her appetite is still intact, but she has early satiety. No fever, chills or sweating. No recent infection. HEENT: Ears: No tinnitus or hearing problem. Nose: She has nasal discharge from allergies. No epistaxis. Throat: No sore throat or mouth ulcers. Eyes: No diplopia or visual changes. RESPIRATORY: No shortness of breath. No cough, expectoration or hemoptysis. CARDIOVASCULAR: No chest pain, orthopnea, or paroxysmal nocturnal dyspnea (PND) . No edema. No palpitations. GASTROINTESTINAL: No nausea or vomiting. No diarrhea. She has constipation from her pain medication with Percocet. She has early satiety due to her splenomegaly. She has left lateral abdominal pain. No heartburn or swallowing difficulties. No jaundice. No hematemesis, melena or rectal bleeding. GENITOURINARY: No hematuria or dysuria. MUSCULOSKELETAL: No pain in the muscles, joints or bones. NEUROLOGICAL: No tingling or numbness in the hands or feet. No headaches or convulsions. HEMATOLOGIC/LYMPHATIC: No bleeding or easy bruising. No weakness or fatigue. No enlarged lymph nodes. SKIN: No skin rash or lumps. PSYCHIATRIC: No anxiety or depression. PHYSICAL EXAMINATION GENERAL: Looks stable. Well-developed, well-nourished, and in no acute distress. VITAL SIGNS: Blood pressure 124/66, pulse 104 per minute, respirations 16 per minute, temperature 96.3, pulse ox 90% on 3L oxygen. HEENT: Head: Atraumatic. No sinus tenderness to palpation. Eyes: No icterus or conjunctivitis. Mouth and Throat: No oral thrush or mucositis. NECK: Supple. No cervical or supraclavicular lymphadenopathy. LUNGS: Clear to auscultation and percussion bilaterally. HEART: Regular rate and rhythm. No gallops, murmurs, clicks or rubs. ABDOMEN: Soft and lax. No tenderness. No hepatosplenomegaly. No masses. EXTREMITIES: No cyanosis, clubbing or edema. LYMPHATICS: No peripheral lymphadenopathy. NEUROLOGICAL: Conscious, alert and oriented times three. No focal motor or sensory deficits. PSYCHIATRIC: Mood and affect appear normal. SKIN: No skin rash, bruise or purpuric eruption. ASSESSMENT 1. CD5 positive B-cell lymphoproliferative disorder, phenotypically consistent with mantle cell lymphoma by flow cytometry of the peripheral blood done on October 18, 2017. CT chest, abdomen, pelvis done on the October 18, 2017 did reveal bulky mediastinal and bilateral hilar adenopathy, in addition to massive retroperitoneum mesenteric adenopathy and periportal adenopathy. There was also massive splenomegaly. I am planning to do staging workup, so I am planning to send the patient for a PET scan and bone marrow aspiration biopsy. I will consult Dr. Shearer our surgeon in town here for bone marrow biopsy and also for placement of central lumen central port. I am planning to treat her with a combination of bendamustine and rituximab. With her bulky disease patient is liable to have tumor lysis syndrome and she was advised about that. I am planning to check also her CBC, chem panel, LDH and uric acid. And we will check her PET scan. I will see the patient next week for further evaluation and management. I spent a long time with the patient and her explaining the plan of management and side effects expected from treatment, and they are agreeable with the plan of management. 2. Hypertension on treatment. 3. Hyperlipidemia on treatment. PLAN 1. Referral to Dr. Shearer for bone marrow aspiration biopsy and placement of central lumen central port. 2. PET/CT scan for staging of mantle cell lymphoma. 3. Patient to return in one week with CBC, chem panel, LDH, uric acid. 4. Patient to contact us for any new concerns or complaint. 5. Consider treatment with rituximab and bendamustine given that the patient's physical condition is not fit for more aggressive chemotherapy. 6. Consider maintenance chemotherapy with rituximab after finishing her induction chemotherapy. MTDD
[2017-11-07 12:49] LABS: PLATELET COUNT, AUTOMATED 139 K/uL (150-450)
[2017-11-07 12:55] VITALS: BP 105/49
[2017-11-09 11:01] VITALS: BP 98/51
--- NOTE | 2017-11-09 15:41 | ONCOLOGY FOLLOW UP NOTE ---
EVENT DATE: November 09, 2017 DIAGNOSES 1. Stage IV mantel cell lymphoma. 2. Hypertension. 3. Hyperlipidemia. CHIEF COMPLAINT Patient is here today for followup of her stage IV mantle cell lymphoma. ONCOLOGY HISTORY Patient is a 72-year-old female who presented to the emergency department at [facility] in [place], [place] with left-sided abdominal pain on and off for the last few months. During her evaluation the patient was found to have lymphocytosis with 71% lymphocytes, 20% neutrophils and fullness in the left upper quadrant due to splenomegaly suspicious for lymphoma, so the patient had a CT chest, abdomen and pelvis done on October 18, 2017 which showed bulky mediastinal and bilateral hilar adenopathy, in addition to massive retroperitoneal mesenteric adenopathy and periportal adenopathy. Massive splenomegaly was also noted. There was a mass effect on the mid splenic vein by the lymph node mass. There was extensive honeycombing in the right lower lobe adjacent irregular cavitary lesion likely chronic. There was also noted 5 mm subpleural noncalcified nodule in the right lower lobe. 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 Patient had a PET CT scan done on November 08, 2017 which showed lymphadenopathy above and below the diaphragm. She had marked splenomegaly, hilar adenopathy, mediastinal adenopathy, left internal mammary lymph node activity, gastrohepatic in the periportal region. Retropleural adenopathy along the aorta. Periaortic activity down through the abdomen to the bifurcation. Bone marrow aspiration biopsy done on October 29, 2017 was positive for mantel cell lymphoma. The BCL1 and SOX11 were positive. Flow cytometry was positive for CD5 monoclonal B-cell population. FISH was positive for variant translocation 11;14. HISTORY OF PRESENT ILLNESS Patient is here today for followup of her mantle cell lymphoma stage IV to start chemotherapy with rituximab and bendamustine cycle number one. She is doing fine currently and she is totally asymptomatic. PAST MEDICAL HISTORY 1. Trigeminal neuralgia. 2. Hypertension. 3. Hyperlipidemia. 4. GERD. PAST SURGICAL HISTORY 1. Tonsillectomy. 2. Surgery for trigeminal neuralgia. 3. Appendectomy. 4. Hysterectomy. 5. Cochlear implant surgery. 6. Surgery for left ankle fracture. FAMILY HISTORY Mother had lung cancer. SOCIAL HISTORY Patient is with no children. She is a homemaker. She smoked one and a half packs a day for 50 years. She drinks wine and beer two to three a day for a long time. Denies any abuse of illicit drugs. CURRENT MEDICATIONS 1. Percocet 5/325 mg tablet q.6 hourly p.r.n. for pain. 2. Benazepril hydrochloride 10 mg daily. 3. Amlodipine 5 mg daily. 4. Glucosamine sulfate 1000 mg tablet twice daily. 5. Premarin 0.9 mg tablet daily. 6. Lipitor 20 mg daily. 7. Calcium with vitamin D one tablet daily. ALLERGIES 1. PENICILLIN DERIVATIVES. 2. AMOXICILLIN which caused diarrhea. 3. SULFA, which does not know the reaction. REVIEW OF SYSTEMS CONSTITUTIONAL: The patient lost about 20 pounds lately. Her appetite is still intact, but she has early satiety. No fever, chills or sweating. No recent infection. HEENT: Ears: No tinnitus or hearing problem. Nose: She has nasal discharge from allergies. No epistaxis. Throat: No sore throat or mouth ulcers. Eyes: No diplopia or visual changes. RESPIRATORY: No shortness of breath. No cough, expectoration or hemoptysis. CARDIOVASCULAR: No chest pain, orthopnea, or paroxysmal nocturnal dyspnea (PND) . No edema. No palpitations. GASTROINTESTINAL: No nausea or vomiting. No diarrhea. She has constipation from her pain medication with Percocet. She has early satiety due to her splenomegaly. She has left lateral abdominal pain. No heartburn or swallowing difficulties. No jaundice. No hematemesis, melena or rectal bleeding. GENITOURINARY: No hematuria or dysuria. MUSCULOSKELETAL: No pain in the muscles, joints or bones. NEUROLOGICAL: No tingling or numbness in the hands or feet. No headaches or convulsions. HEMATOLOGIC/LYMPHATIC: No bleeding or easy bruising. No weakness or fatigue. No enlarged lymph nodes. SKIN: No skin rash or lumps. PSYCHIATRIC: No anxiety or depression. PHYSICAL EXAMINATION GENERAL: Looks stable. Well-developed, well-nourished, and in no acute distress. VITAL SIGNS: Blood pressure 98/51, pulse 105 per minute, respirations 16 per minute, temperature 96.3, pulse ox 87% on room air. HEENT: Head: Atraumatic. No sinus tenderness to palpation. Eyes: No icterus or conjunctivitis. Mouth and Throat: No oral thrush or mucositis. NECK: Supple. No cervical or supraclavicular lymphadenopathy. LUNGS: Clear to auscultation and percussion bilaterally. HEART: Regular rate and rhythm. No gallops, murmurs, clicks or rubs. ABDOMEN: Soft and lax. No tenderness. No hepatosplenomegaly. No masses. EXTREMITIES: No cyanosis, clubbing or edema. LYMPHATICS: No peripheral lymphadenopathy. NEUROLOGICAL: Conscious, alert and oriented times three. No focal motor or sensory deficits. PSYCHIATRIC: Mood and affect appear normal. SKIN: No skin rash, bruise or purpuric eruption. DIAGNOSTIC DATA CBC showed white count 30.9, hemoglobin 13.8, hematocrit 41.5, platelet 139, 000. Absolute lymphocytic count was 24.2. Chem panel totally normal except sodium 136, carbon dioxide 21, creatinine 1.1. LDH was normal at 456. Uric acid was normal at 7.3. Hepatitis B surface antigen was negative. Hepatitis B core antibody was also negative. Bone marrow aspiration biopsy done on October 29, 2017 came back positive for involvement by mantle cell lymphoma, CD5 positive, monoclonal B-cell population with positive FISH for variant translocation 11; 14. BCL1 and SOX11 were positive. PET/CT scan done on November 08, 2017 showed lymphadenopathy above and below the diaphragm. ASSESSMENT 1. Stage IV mantle cell lymphoma with CD5 positive, B-cell lymphoproliferative disorder, phenotypically consistent with mantle cell lymphoma by flow cytometry of the peripheral blood done on October 18, 2017. CT chest, abdomen, pelvis done on the October 18, 2017 did reveal bulky mediastinal, bilateral hilar, in addition to massive retroperitoneal mesenteric adenopathy and periportal adenopathy. There was also massive splenomegaly. Those results are confirmed by the PET scan done on November 08, 2017. Bone marrow aspiration biopsy done on October came back positive for mantle cell lymphoma. BCL1 and SOX11 were positive. FISH was positive for variant translocation 11;14. Patient had a central port placed by Dr. Shearer. I am planning to start treatment with rituximab and bendamustine on November 14, 2017. I spent a long time with the patient and her explaining the plan of management, side effects expected, especially tumor lysis syndrome, and the patient is agreeable with the plan of management. I am planning to check her CBC, chem panel, uric acid weekly after she will start the treatment. I will see her in four weeks prior to her second cycle of chemotherapy. I talked to her also about after achieving complete remission. Hopefully we are going to maintain her on rituximab every two months for two years. 2. Hypertension on treatment. 3. Hyperlipidemia on treatment. PLAN 1. Rituximab, bendamustine cycle number one to start on November 14, 2017. 2. CBC, chem panel, uric acid to be checked weekly. 3. Neulasta 6 mg day three of each cycle subcutaneously. 4. Patient to return in four weeks prior to the next cycle of chemotherapy with CBC, chem panel, LDH, uric acid. 5. Patient to contact us for any new concern or complaints. MTDD
[2017-11-14 08:58] VITALS: BP 115/55
[2017-11-14] MEDS: ACETAMINOPHEN 325 MG TAB PO PRN (09:47)
[2017-11-14] MEDS: LIDOCAINE/SOD BICARB 8.4% SYR ID PRN (09:48)
[2017-11-14] MEDS: NS(*) 0.9% 500 ML BAG 500 ML IV PRN (09:48)
[2017-11-14] MEDS: PALONOSETRON 0.25 MG/5 ML VIAL IVP PRN (09:53)
[2017-11-14] MEDS: diphenhydrAMINE 50 MG/ML VIAL IVP PRN (09:54)
[2017-11-14] MEDS: DEXAMETHASONE SOD PHOS 10MG/ML IVP PRN (09:54)
[2017-11-14 14:28] VITALS: BP 80/52
[2017-11-15] MEDS: DEXAMETHASONE SOD PHOS 10MG/ML IVP PRN (12:37)
[2017-11-15 12:47] VITALS: BP 82/68
[2017-11-15 12:48] VITALS: BP 100/47
[2017-11-15] MEDS: HEPARIN FLSH (PORT) 500 UN/5ML IVP PRN (13:30)
[2017-11-15 13:31] VITALS: BP 90/44
[2017-11-16] MEDS: LIDOCAINE/SOD BICARB 8.4% SYR ID PRN (10:00)
[2017-11-16 10:24] LABS: PLATELET COUNT, AUTOMATED 53 K/uL (150-450)
[2017-11-16 10:34] VITALS: BP 124/69
[2017-11-21 10:05] VITALS: BP 117/41
[2017-11-21 10:33] LABS: PLATELET COUNT, AUTOMATED 96 K/uL (150-450)
[2017-11-21] MEDS: HEPARIN FLSH (PORT) 500 UN/5ML IVP PRN (11:05)
[2017-11-21] MEDS: LIDOCAINE/SOD BICARB 8.4% SYR ID PRN (11:05)
[2017-11-22 15:50] VITALS: BP 100/51
--- NOTE | 2017-11-22 17:32 | Oncology Progress Note ---
History of Present Illness Evaluation Evaluation Date: Nov 22, 2017 Evaluation Time: 15:00 Accompanied by Accompanied by: Last seen by : Benigno 11/09/17 Chief Complaint Cheif Complaint: Weakness Oncology History Oncology History: Oct 18 2017 1.CD5 positive B-cell lymphoproliferative disorder, phenotypically consistent with mantle cell lymphoma by flow cytometry of the peripheral blood done on October 18, 2017. 2. CT chest, abdomen, pelvis done on the October 18, 2017 did reveal bulky mediastinal and bilateral hilar adenopathy, in addition to massive retroperitoneum mesenteric adenopathy and periportal adenopathy. 3.There was also massive splenomegaly. I am planning to do staging workup, so I am planning to send the patient for a PET scan and bone marrow aspiration biopsy 4. I am planning to treat her with a combination of bendamustine and rituximab. With her bulky disease patient is liable to have tumor lysis syndrome and she was advised about that. 5. I am planning to check also her CBC, chem panel, LDH and uric acid. 6. And we will check her PET scan. I will see the patient next week for further evaluation and management. I spent a long time with the patient and her explaining the plan of management and side effects expected from treatment, and they are agreeable with the plan of management. - October 29, 2017 Mantle cell lymphoma stage IV revealed by Bone marrow aspiration biopsy done on October 29, 2017 was positive for mantel cell lymphoma - November 14, 2017 first treatment of Rituximab and Bendamustine, - November 16, 2017 TLS Hospitalized and treated at [facility] Treatment Treatment: - November 14, 2017 first treatment of Rituximab and Bendamustine, - November 16, 2017 TLS Hospitalized and treated at [facility] HPI HPI: Mrs. Luis M Davis is a 72 year old woman who has Mantle cell lymphoma stage IV revealed by Bone marrow aspiration biopsy done on October 29, 2017 was positive for mantel cell lymphoma. The BCL1 and SOX11 were positive. Flow cytometry was positive for CD5 monoclonal B-cell population. FISH was positive for variant translocation 11; 14. Patient initiated first treatment of Rituximab and Bendamustine on November 14, 2017, and she was recently hospitalized and treated at [facility] on 11/16/17 for TLS. Patient was instructed to come in to cancer center today for an evaluation after called with unclear symptoms over the phone. Patient reports that she experienced profound weakness last night, to the point where she needed assistance from her . She reports one episode of emesis after intake of ensure, and 2 bowel movements muddy brown, along with mild incontinence. She denies fevers, chills, headache, palpitations, Sob, abdominal pain, no difficulty swallowing. She continues to smoke one pack cigarettes per day, and having poor nutritional intake Living Conditions: Lives with Anil. PAST MEDICAL HISTORY 1. Trigeminal neuralgia. 2. Hypertension. 3. Hyperlipidemia. 4. GERD. PAST SURGICAL HISTORY 1. Tonsillectomy. 2. Surgery for trigeminal neuralgia. 3. Appendectomy. 4. Hysterectomy. 5. Cochlear implant surgery. 6. Surgery for left ankle fracture. Diagnostic Studies Result Diagram: 11/21/17 1013 11/21/17 1013 Allergies & Medications Allergies: Coded Allergies: Sulfa (Sulfonamide Antibiotics) (Unverified Allergy, Unknown, UNKNOWN, 03/28) EHR Conversion amoxicillin (Unverified Allergy, Unknown, UNKNOWN, 10/18/17) EHR Conversion Penicillins (Verified Adverse Reaction, Intermediate, SEVERE DIARRHEA, 03/28) ? [facility] Home Meds Active Scripts Calcium Carbonate (CALCIUM ANTACID) 200 Mg Tab.chew, 1000 MG PO Q8H Y for HEARTBURN, #100 TAB.CHEW 1 Refill Prov:PRECIOUS KIM MD 11/19/17 Acyclovir (ACYCLOVIR) 200 Mg Capsule, 400 MG PO BID, #60 CAPSULE 1 Refill Prov:PRECIOUS KIM MD 11/19/17 Allopurinol (ZYLOPRIM 300 MG TAB (OR EQUIV)) 300 Mg Tab, 300 MG PO QDAY, #30 TAB 1 Refill Prov:PRECIOUS KIM MD 11/19/17 Oxycodone Hcl/Acetaminophen (PERCOCET 5-325 MG TABLET) 1 Each Tablet, 1 EACH PO Q6H Y for PAIN for 30 Days, TAB Prov:PRECIOUS KIM MD 11/19/17 Bisacodyl (DULCOLAX) 10 Mg Supp.rect, 10 MG RC DAILY Y for constipation for 30 Days, #10 SUPP.RECT Prov:LUCÍA MEDINA MD 10/23/17 Reported Medications Lorazepam (ATIVAN) 0.5 Mg Tablet, 0.5 MG PO Q4-6H Y for NAUSEA/VOMITING Take 1 to 2 tablets PRN anxiety/nausea/vomiting 11/21/17 Prochlorperazine Maleate (Compazine) 10 Mg Tablet, 10 MG PO Q6H Y for NAUSEA/ VOMITING 11/21/17 Ondansetron (ZOFRAN ODT) 4 Mg Tab.rapdis, 8 MG PO Q8H Y for NAUSEA, TAB.CARLOS 11/21/17 Atorvastatin Calcium (LIPITOR) 20 Mg Tablet, 1 TAB PO QHS, TAB 11/16/17 Estrogens, Conjugated (PREMARIN) 0.9 Mg Tablet, 0.9 MG PO 3XW 11/16/17 Glucosamine Sulfate 2KCL (GLUCOSAMINE SULFATE) 1,000 Mg Tablet, 1 TAB PO BID 10/08/17 Discontinued Scripts Atorvastatin Calcium (LIPITOR) 20 Mg Tablet, 1 TAB PO QDAY, #90 TAB 4 Refills Prov:BREANNE MCDANIEL MD 05/22/17 Hydromorphone Hcl (DILAUDID) 2 Mg Tablet, 1-2 MG PO Q6H Y for pain for 7 Days, # 28 TAB Prov:LUCÍA MEDINA MD 11/07/17 Oxycodone Hcl/Acetaminophen (OXYCODONE-ACETAMINOPHEN 5-325) 1 Each Tablet, 1 EACH PO QID for 10 Days, #30 TAB Prov:LUCÍA MEDINA MD 10/30/17 Estrogens, Conjugated (PREMARIN) 0.9 Mg Tablet, 1 TAB PO QDAY, #90 TAB Prov:CARIDAD LONDON MD 07/27/17 Benazepril Hcl (BENAZEPRIL HCL) 10 Mg Tab, 1 TAB PO QDAY, #90 TAB 4 Refills Prov:LUCÍA MEDINA MD 10/09/17 Review of Systems Constitution: Positive for Appetite/Weight Change, Denies Fever/Chills/Sweating , Denies Recent Infection, Denies Other HEENT: No EARS: Tinnitus, No NOSE: Nasal Discharge, No THROAT: Sore Throat, No EYES: Dipolpia, No EARS: Hearing Problems, No NOSE: Epistaxis, No THROAT: Mouth Ulcers, No EYES: Vision Change, No OTHER Respiratory: No Cough, No Expectoration, No Hemoptysis, No Shortness of Breath , No OTHER Cardiovascular: No Chest Pain, No Orthopnea, No Edema, No Palpitations, No OTHER Gastrointestinal: Nausea, Vomitting Gentiourinary: No Hematuria, No Dysuria, No Nocturia, No Other Musculoskeletal: No Muscle Pain, No Joint Pain, No Bone Pain, No Other Hematological: Weakness, Fatigue Skin: No Skin Rash, No Lumps, No Erythema, No Dry Skin, No Moist Skin, No Other Psychiatric: Anxiety Vital Signs Vital Signs Temperature: 97.4 Pulse: 105 BP Systolic: 100 BP Diastolic: 51 Respiratory Rate: 16 O2 SAT: 90 O2 Delivery: Height (feet) Height (inches) 62.50 Weight lb: 135 Weight oz: 2.0 Weight Kg (Omi): Pain: 0 Physical Exam General: Looks Stable, Other (emaciated) HEENT: No HEAD:Atraumatic, No EYES: Conjuctivitis, No EYES: Icterus, No MOUTH: Mucocitis, No MOUTH: Oral Thrush, No SINUS: Tenderness to Palpation, No Other Neck: Supple Lungs: Clear to Auscultation, Other (Diminished) Heart: Regular Rate and Rhythm Abdomen: Soft and Nontender, Hepatosplenomegaly Extremities: No Cyanosis, No Clubbing, No Edema, No Other Lymphatics: No Peripheral Lymphadenopathy, No Other Psychiatric: No Mood appears normal, No Affect appears normal, No Other Skin: No Skin Rashes, No Bruising, No Purpura, No Moist Desquamation, No Dry Desquamation, No Errythema, No Mild Errythema, No Moderate Errythema, No Severe Errythema, No Induration, No Other Breast: No No Masses, No No Nipple Discharge, No No Skin Changes, No Other Assessment - October 29, 2017 Mantle cell lymphoma stage IV revealed by Bone marrow aspiration biopsy done on October 29, 2017 was positive for mantel cell lymphoma, initiated treatment on November 14, 2017 with treatment of Rituximab and Bendamustine. - Chemotherapy Induced Weakness: neuro exam with negative findings, patient is AAOX3, no changes in mental status, patient was able to ambulate without assistance in the clinic. Labs discussed and reviewed with patient and , we will initiate Neupogen 300mcg SC x5 days, and replete Magnesium. -Smoking cessation: teaching reinforced and rationale for smoking cessation given to patient as well as encourage her to consider using Chantix or Zyban. Patient agrees to think about it. Patient was also instructed to increase fluid intake, eat a soft diet and practice good oral Hygiene. Plan PLAN - Neupogen 300mcg SC x 5 days - Rx called in for Mag Oxide 400mg Po Daily x 5 days - Patient to return in one week with CBC, chem panel, LDH, uric acid. - Continue treatment with rituximab and bendamustine per initial treatment plan. - Consider maintenance chemotherapy with rituximab after finishing her induction chemotherapy. Patient to contact us for any new concerns or complaint. TIME SPENT: 30 minutes > 25 minutes includes but not limited to discussion, counselling and co-ordination~ of care. Discussion with other health care providers, record review, review of lab work, diagnostic tests. Plan discussed extensively with patient, and spouse. All the questions answered today. Thank you for the opportunity to be involved in the care f Luis M Sepulveda Billing Level : Return visit 4 ANDRAE GREEN, ONC Nov 22, 2017 17:32
[2017-11-23 14:56] VITALS: BP 82/63
[2017-11-23 14:58] VITALS: BP 90/43
[2017-11-23] MEDS: NS(*) 0.9% 500 ML BAG 500 ML IV PRN ×2 (15:00→15:30)
[2017-11-23] MEDS: LIDOCAINE/SOD BICARB 8.4% SYR ID PRN (15:00)
[2017-11-23 15:03] LABS: PLATELET COUNT, AUTOMATED 166 K/uL (150-450)
--- NOTE | 2017-11-23 17:39 | Oncology Progress Note ---
History of Present Illness Evaluation Evaluation Date: Nov 23, 2017 Evaluation Time: 15:00 Primary Care Provider Primary Care Provider: Adalid Youssef Accompanied by Accompanied by: Last seen by : Benigno 11/09/17 Chief Complaint Cheif Complaint: Weakness Oncology History Oncology History: Oct 18 2017 1.CD5 positive B-cell lymphoproliferative disorder, phenotypically consistent with mantle cell lymphoma by flow cytometry of the peripheral blood done on October 18, 2017. 2. CT chest, abdomen, pelvis done on the October 18, 2017 did reveal bulky mediastinal and bilateral hilar adenopathy, in addition to massive retroperitoneum mesenteric adenopathy and periportal adenopathy. 3.There was also massive splenomegaly. I am planning to do staging workup, so I am planning to send the patient for a PET scan and bone marrow aspiration biopsy 4. I am planning to treat her with a combination of bendamustine and rituximab. With her bulky disease patient is liable to have tumor lysis syndrome and she was advised about that. 5. I am planning to check also her CBC, chem panel, LDH and uric acid. 6. And we will check her PET scan. I will see the patient next week for further evaluation and management. I spent a long time with the patient and her explaining the plan of management and side effects expected from treatment, and they are agreeable with the plan of management. - October 29, 2017 Mantle cell lymphoma stage IV revealed by Bone marrow aspiration biopsy done on October 29, 2017 was positive for mantel cell lymphoma - November 14, 2017 first treatment of Rituximab and Bendamustine, - November 16, 2017 TLS Hospitalized and treated at [facility] Treatment Treatment: - November 14, 2017 first treatment of Rituximab and Bendamustine, - November 16, 2017 TLS Hospitalized and treated at [facility] HPI HPI: Mrs. Luis M Davis is a 72 year old woman who has Mantle cell lymphoma stage IV revealed by Bone marrow aspiration biopsy done on October 29, 2017 was positive for mantel cell lymphoma. The BCL1 and SOX11 were positive. Flow cytometry was positive for CD5 monoclonal B-cell population. FISH was positive for variant translocation 11; 14. Patient initiated first treatment of Rituximab and Bendamustine on November 14, 2017, and she was recently hospitalized and treated at [facility] on 11/16/17 for TLS. Patient presented to clinic today for her dose of neupogen, was found to be hemodinalically unstable, tachycardia and tachypnea. No changes in LOC from baseline. However, she reported falling last night at home. No active bleeding. Patient was seen yesterday 11/22/17 at the cancer center for an evaluation after her had called with unclear symptoms over the phone. Patient reported that she experienced profound weakness last night, to the point where she needed assistance from her . reported some episodes of formed stools. She denies fevers, chills, headache, palpitations, Sob, abdominal pain, no difficulty swallowing. She continues to smoke one pack cigarettes per day, and having poor nutritional intake. Living Conditions: Lives with Don. PAST MEDICAL HISTORY 1. Trigeminal neuralgia. 2. Hypertension. 3. Hyperlipidemia. 4. GERD. PAST SURGICAL HISTORY 1. Tonsillectomy. 2. Surgery for trigeminal neuralgia. 3. Appendectomy. 4. Hysterectomy. 5. Cochlear implant surgery. 6. Surgery for left ankle fracture. Diagnostic Studies Result Diagram: 11/23/17 1455 11/23/17 1455 Radiology: chest xray ordered Social/Occupational History Social History: Social History This is a 72 Yr old White female, she is M and has [] Children Hx Smoking: Yes (1ppd) Smoking Status: Current: Every Day Smoker Exposure to Second Hand Smoke?: Yes Allergies & Medications Allergies: Coded Allergies: Sulfa (Sulfonamide Antibiotics) (Unverified Allergy, Unknown, UNKNOWN, 03/28) EHR Conversion amoxicillin (Unverified Allergy, Unknown, UNKNOWN, 10/18/17) EHR Conversion Penicillins (Verified Adverse Reaction, Intermediate, SEVERE DIARRHEA, 03/28) ? Hives Home Meds Active Scripts Calcium Carbonate (CALCIUM ANTACID) 200 Mg Tab.chew, 1000 MG PO Q8H Y for HEARTBURN, #100 TAB.CHEW 1 Refill Prov:PRECIOUS KIM MD 11/19/17 Acyclovir (ACYCLOVIR) 200 Mg Capsule, 400 MG PO BID, #60 CAPSULE 1 Refill Prov:PRECIOUS KIM MD 11/19/17 Allopurinol (ZYLOPRIM 300 MG TAB (OR EQUIV)) 300 Mg Tab, 300 MG PO QDAY, #30 TAB 1 Refill Prov:PRECIOUS KIM MD 11/19/17 Oxycodone Hcl/Acetaminophen (PERCOCET 5-325 MG TABLET) 1 Each Tablet, 1 EACH PO Q6H Y for PAIN for 30 Days, TAB Prov:PRECIOUS KIM MD 11/19/17 Bisacodyl (DULCOLAX) 10 Mg Supp.rect, 10 MG RC DAILY Y for constipation for 30 Days, #10 SUPP.RECT Prov:LUCÍA MEDINA MD 10/23/17 Reported Medications Lorazepam (ATIVAN) 0.5 Mg Tablet, 0.5 MG PO Q4-6H Y for NAUSEA/VOMITING Take 1 to 2 tablets PRN anxiety/nausea/vomiting 11/21/17 Prochlorperazine Maleate (Compazine) 10 Mg Tablet, 10 MG PO Q6H Y for NAUSEA/ VOMITING 11/21/17 Ondansetron (ZOFRAN ODT) 4 Mg Tab.rapdis, 8 MG PO Q8H Y for NAUSEA, TAB.CARLOS 11/21/17 Atorvastatin Calcium (LIPITOR) 20 Mg Tablet, 1 TAB PO QHS, TAB 11/16/17 Estrogens, Conjugated (PREMARIN) 0.9 Mg Tablet, 0.9 MG PO 3XW 11/16/17 Glucosamine Sulfate 2KCL (GLUCOSAMINE SULFATE) 1,000 Mg Tablet, 1 TAB PO BID 10/08/17 Discontinued Scripts Atorvastatin Calcium (LIPITOR) 20 Mg Tablet, 1 TAB PO QDAY, #90 TAB 4 Refills Prov:BREANNE MCDANIEL MD 05/22/17 Hydromorphone Hcl (DILAUDID) 2 Mg Tablet, 1-2 MG PO Q6H Y for pain for 7 Days, # 28 TAB Prov:LUCÍA MEDINA MD 11/07/17 Oxycodone Hcl/Acetaminophen (OXYCODONE-ACETAMINOPHEN 5-325) 1 Each Tablet, 1 EACH PO QID for 10 Days, #30 TAB Prov:LUCÍA MEDINA MD 10/30/17 Estrogens, Conjugated (PREMARIN) 0.9 Mg Tablet, 1 TAB PO QDAY, #90 TAB Prov:CARIDAD LONDON MD 07/27/17 Review of Systems Constitution: Positive for Appetite/Weight Change, Denies Recent Infection, Denies Other HEENT: No EARS: Tinnitus, No NOSE: Nasal Discharge, No THROAT: Sore Throat, No EYES: Dipolpia, No EARS: Hearing Problems, No NOSE: Epistaxis, No THROAT: Mouth Ulcers, No EYES: Vision Change, No OTHER Respiratory: No Cough, No Expectoration, No Hemoptysis, No Shortness of Breath , No OTHER Cardiovascular: No Chest Pain, No Orthopnea, No Edema, No Palpitations, No OTHER Gastrointestinal: Nausea, Vomitting Gentiourinary: No Hematuria, No Dysuria, No Nocturia, No Other Musculoskeletal: No Muscle Pain, No Joint Pain, No Bone Pain, No Other Hematological: Weakness, Fatigue Skin: No Skin Rash, No Lumps, No Erythema, No Dry Skin, No Moist Skin, No Other Psychiatric: Anxiety Vital Signs Vital Signs Temperature: 101.4 Pulse: 114 BP Systolic: 90 BP Diastolic: 43 Respiratory Rate: 16 O2 SAT: 95 O2 Delivery: Height (feet) Height (inches) 62.50 Weight lb: 135 Weight oz: 2.0 Weight Kg (Omi): Pain: 0 Physical Exam General: Other (emaciated, ill looking) HEENT: No HEAD:Atraumatic, No EYES: Conjuctivitis, No EYES: Icterus, No MOUTH: Mucocitis, No MOUTH: Oral Thrush, No SINUS: Tenderness to Palpation, No Other Neck: Supple Lungs: Clear to Auscultation, Other (Diminished) Heart: Regular Rate and Rhythm Abdomen: Soft and Nontender, Hepatosplenomegaly Extremities: No Cyanosis, No Clubbing, No Edema, No Other Lymphatics: No Peripheral Lymphadenopathy, No Other Psychiatric: No Mood appears normal, No Affect appears normal, No Other Skin: No Skin Rashes, No Bruising, No Purpura, No Moist Desquamation, No Dry Desquamation, No Errythema, No Mild Errythema, No Moderate Errythema, No Severe Errythema, No Induration, No Other Breast: No No Masses, No No Nipple Discharge, No No Skin Changes, No Other Assessment Assessment: 1. October 29, 2017 Mantle cell lymphoma stage IV revealed by Bone marrow aspiration biopsy done on October 29, 2017 was positive for mantel cell lymphoma, initiated treatment on November 14, 2017 with treatment of Rituximab and Bendamustine. Patient presented to clinic today for her dose of neupogen, was found to be hemodinalically unstable, tachycardia and tachypnea. No changes in LOC from baseline. However, she reported falling last night at home. 2. Presumed Neutropenic fever. S/p chemo treament, anticipating Blaise, pancytopenia. ; neutropenia work up protocol and treatment w/ braod spectrum abx was inititated. 3. Chemotherapy Induced Weakness: neuro exam with negative findings, patient is AAOX3, no changes in mental status, patient was able to ambulate without assistance in the clinic esteday 11/22/17. Labs were discussed and reviewed with patient and , we will initiate Neupogen 300mcg SC x5 days, and replete Magnesium PRN -Smoking cessation: teaching reinforced and rationale for smoking cessation given to patient as well as encourage her to consider using Chantix or Zyban. Patient agrees to think about it. Patient was also instructed to increase fluid intake, eat a soft diet and practice good oral Hygiene. Plan Plan: - Initiate IV NS fluid hydration, BC x2, neutropenic set work up, including sample for c-diff. Direct admit; Presented to Hospitalist team Dr. Nguyen for close monitoring - s/p reported Fall at home: neuro checks, monitor appropriate images, and coags panel as clinically indicated. - Hold neupogen, and follow labs. ANC today is 7.9 s/p neupogen on 11/22/17 x one. - Monito TLS panel, CBC, chem panel, LDH, uric acid - Replete lytes PRN; K, Mag - PRN blood products transfussion as clinically indicated - Patient to return to cancer center upon discharge from hospital - Will discuss with Dr. Pelaez in regards to resuming treatment with rituximab and bendamustine as planned once patient stable. TIME SPENT: 45 minutes > 40 minutes includes but not limited to discussion, counselling and co-ordination~ of care. Discussion with other health care providers, record review, review of lab work, diagnostic tests. Plan discussed extensively with patient, and spouse. All the questions answered today. Thank you for the opportunity to be involved in the care of Luis M Sepulveda Billing Level : 5 ANDRAE GREEN, ONC Nov 23, 2017 17:39
[2017-11-23 20:31] VITALS: Ht 158.8 cm; Wt 49.8 kg
[2017-11-26 11:17] LABS: PLATELET COUNT, AUTOMATED 191 K/uL (150-450)
[2017-11-26] MEDS: LIDOCAINE/SOD BICARB 8.4% SYR ID PRN (11:23)
[2017-11-26 11:25] VITALS: BP 89/60
[2017-11-26] MEDS: HEPARIN FLSH (PORT) 500 UN/5ML IVP PRN (12:00)
--- NOTE | 2017-11-30 18:16 | Oncology Progress Note ---
History of Present Illness Evaluation Evaluation Date: Nov 26, 2017 Evaluation Time: 11:30 Primary Care Provider Primary Care Provider: Adalid Youssef Accompanied by Accompanied by: Last seen by : Benigno 11/09/17 Chief Complaint Chief Complaint: s/p hospitalization Oncology History Oncology History: Oct 18 2017 1.CD5 positive B-cell lymphoproliferative disorder, phenotypically consistent with mantle cell lymphoma by flow cytometry of the peripheral blood done on October 18, 2017. 2. CT chest, abdomen, pelvis done on the October 18, 2017 did reveal bulky mediastinal and bilateral hilar adenopathy, in addition to massive retroperitoneum mesenteric adenopathy and periportal adenopathy. 3.There was also massive splenomegaly. I am planning to do staging workup, so I am planning to send the patient for a PET scan and bone marrow aspiration biopsy 4. I am planning to treat her with a combination of bendamustine and rituximab. With her bulky disease patient is liable to have tumor lysis syndrome and she was advised about that. 5. I am planning to check also her CBC, chem panel, LDH and uric acid. 6. And we will check her PET scan. I will see the patient next week for further evaluation and management. I spent a long time with the patient and her explaining the plan of management and side effects expected from treatment, and they are agreeable with the plan of management. - October 29, 2017 Mantle cell lymphoma stage IV revealed by Bone marrow aspiration biopsy done on October 29, 2017 was positive for mantel cell lymphoma - November 14, 2017 first treatment of Rituximab and Bendamustine, - November 16, 2017 TLS Hospitalized and treated at [facility] Treatment Treatment: - November 14, 2017 first treatment of Rituximab and Bendamustine, - November 16, 2017 TLS Hospitalized and treated at [facility] - November Presumed Neutropenic fever- admitted at [facility] HPI HPI: Mrs. Luis M Davis is a 72 year old woman who has Mantle cell lymphoma stage IV revealed by Bone marrow aspiration biopsy done on October 29, 2017 was positive for mantel cell lymphoma. The BCL1 and SOX11 were positive. Flow cytometry was positive for CD5 monoclonal B-cell population. FISH was positive for variant translocation 11; 14. Patient initiated first treatment of Rituximab and Bendamustine on November 14, 2017, and she was recently hospitalized and treated at [facility] on 11/16/17 for TLS. Patient presented to clinic on 11/25/2017 for her dose of neupogen, was found to be hemodinalically unstable, tachycardia and tachypnea. No changes in LOC from baseline. However, she reported falling last night at home. No active bleeding. patient was directly admitted at [facility] for management and obsrvation on Neutropenic fever. She is here today after discharged from [facility]. she is AAOX3. dnies any chest pain, abdomial pain, denies any diarreha. reports improvement in her weaness. Patient was seen on 11/21/17 at the cancer center for an evaluation after her had called with unclear symptoms over the phone. Patient reported that she experienced profound weakness last night, to the point where she needed assistance from her . reported some episodes of formed stools. She denies fevers, chills, headache, palpitations, Sob, abdominal pain, no difficulty swallowing. She continues to smoke one pack cigarettes per day, and having poor nutritional intake. Living Conditions: Lives with Don. PAST MEDICAL HISTORY 1. Trigeminal neuralgia. 2. Hypertension. 3. Hyperlipidemia. 4. GERD. PAST SURGICAL HISTORY 1. Tonsillectomy. 2. Surgery for trigeminal neuralgia. 3. Appendectomy. 4. Hysterectomy. 5. Cochlear implant surgery. 6. Surgery for left ankle fracture. Diagnostic Studies Result Diagram: 11/26/17 1110 11/26/17 1110 Radiology: chest xray ordered Social/Occupational History Social History: Social History This is a 72 Yr old White female, she is M and has [] Children Hx Smoking: Yes (1ppd) Smoking Status: Current: Every Day Smoker Exposure to Second Hand Smoke?: Yes Allergies & Medications Allergies: Coded Allergies: Sulfa (Sulfonamide Antibiotics) (Unverified Allergy, Unknown, UNKNOWN, 03/28) EHR Conversion amoxicillin (Unverified Allergy, Unknown, UNKNOWN, 10/18/17) EHR Conversion Penicillins (Verified Adverse Reaction, Intermediate, SEVERE DIARRHEA, 03/28) ? Hives Home Meds Active Scripts Levofloxacin 250 Mg Tab (LEVAQUIN 250 MG TAB) 250 Mg Tablet, 250 MG PO DAILY for 6 Days, #6 TAB Prov:DORIS NUÑEZ MD 11/24/17 Calcium Carbonate (CALCIUM ANTACID) 200 Mg Tab.chew, 1000 MG PO Q8H Y for HEARTBURN, #100 TAB.CHEW 1 Refill Prov:PRECIOUS KIM MD 11/19/17 Acyclovir (ACYCLOVIR) 200 Mg Capsule, 400 MG PO BID, #60 CAPSULE 1 Refill Prov:PRECIOUS KIM MD 11/19/17 Allopurinol (ZYLOPRIM 300 MG TAB (OR EQUIV)) 300 Mg Tab, 300 MG PO QDAY, #30 TAB 1 Refill Prov:PRECIOUS KIM MD 11/19/17 Oxycodone Hcl/Acetaminophen (PERCOCET 5-325 MG TABLET) 1 Each Tablet, 1 EACH PO Q6H Y for PAIN for 30 Days, TAB Prov:PRECIOUS KIM MD 11/19/17 Bisacodyl (DULCOLAX) 10 Mg Supp.rect, 10 MG RC DAILY Y for constipation for 30 Days, #10 SUPP.RECT Prov:LUCÍA MEDINA MD 10/23/17 Reported Medications Lorazepam (ATIVAN) 0.5 Mg Tablet, 0.5 MG PO Q4-6H Y for NAUSEA/VOMITING Take 1 to 2 tablets PRN anxiety/nausea/vomiting 11/21/17 Prochlorperazine Maleate (Compazine) 10 Mg Tablet, 10 MG PO Q6H Y for NAUSEA/ VOMITING 11/21/17 Ondansetron (ZOFRAN ODT) 4 Mg Tab.rapdis, 8 MG PO Q8H Y for NAUSEA, TAB.CARLOS 11/21/17 Atorvastatin Calcium (LIPITOR) 20 Mg Tablet, 1 TAB PO QHS, TAB 11/16/17 Estrogens, Conjugated (PREMARIN) 0.9 Mg Tablet, 0.9 MG PO 3XW 11/16/17 Glucosamine Sulfate 2KCL (GLUCOSAMINE SULFATE) 1,000 Mg Tablet, 1 TAB PO BID 10/08/17 Review of Systems Constitution: Positive for Appetite/Weight Change, Positive for Recent Infection, Denies Other HEENT: No EARS: Tinnitus, No NOSE: Nasal Discharge, No THROAT: Sore Throat, No EYES: Dipolpia, No EARS: Hearing Problems, No NOSE: Epistaxis, No THROAT: Mouth Ulcers, No EYES: Vision Change, No OTHER Respiratory: No Cough, No Expectoration, No Hemoptysis, No Shortness of Breath , No OTHER Cardiovascular: No Chest Pain, No Orthopnea, No Edema, No Palpitations, No OTHER Gastrointestinal: Nausea, Vomitting Gentiourinary: No Hematuria, No Dysuria, No Nocturia, No Other Musculoskeletal: No Muscle Pain, No Joint Pain, No Bone Pain, No Other Hematological: Weakness, Fatigue Skin: No Skin Rash, No Lumps, No Erythema, No Dry Skin, No Moist Skin, No Other Psychiatric: Anxiety Vital Signs Vital Signs Temperature: 96.9 Pulse: 99 BP Systolic: 89 BP Diastolic: 60 Respiratory Rate: 16 O2 SAT: 92 O2 Delivery: Height (feet) Height (inches) 62.50 Weight lb: 135 Weight oz: 2.0 Weight Kg (Omi): Pain: 0 Physical Exam General: Other (emaciated, ill looking) HEENT: No HEAD:Atraumatic, No EYES: Conjuctivitis, No EYES: Icterus, No MOUTH: Mucocitis, No MOUTH: Oral Thrush, No SINUS: Tenderness to Palpation, No Other Neck: Supple Lungs: Clear to Auscultation, Other (Diminished) Heart: Regular Rate and Rhythm Abdomen: Soft and Nontender, Hepatosplenomegaly Extremities: No Cyanosis, No Clubbing, No Edema, No Other Lymphatics: No Peripheral Lymphadenopathy, No Other Psychiatric: No Mood appears normal, No Affect appears normal, No Other Skin: No Skin Rashes, No Bruising, No Purpura, No Moist Desquamation, No Dry Desquamation, No Errythema, No Mild Errythema, No Moderate Errythema, No Severe Errythema, No Induration, No Other Breast: No No Masses, No No Nipple Discharge, No No Skin Changes, No Other Assessment and Plan Assessment and Plan: 1. October 29, 2017 Mantle cell lymphoma stage IV revealed by Bone marrow aspiration biopsy done on October 29, 2017 was positive for mantel cell lymphoma, initiated treatment on November 14, 2017 with treatment of Rituximab and Bendamustine. Patient is here after recent discharged from [facility], for presumed Neutropenic fever. 2. Presumed Neutropenic fever. S/p chemo treament, anticipating Blaise, pancytopenia. ; neutropenia work up protocol and treatment w/ broad spectrum abx was inititated. 3. Chemotherapy Induced Weakness: neuro exam with negative findings, patient is AAOX3, no changes in mental status, patient was able to ambulate without assistance in the clinic esteday 11/22/17. Labs were discussed and reviewed with patient and , we will initiate Neupogen 300mcg SC x5 days, and replete Magnesium PRN 4. fall precautions safety teaching reinforced to patient and , instructed to leave bathroom and hallways lights ON at evening, to remove all throw rugs. 5. A Shower chair Rx today. - patient to increase fluid water intake. -F/u on 12/05/17 for disease management -Smoking cessation: teaching reinforced and rationale for smoking cessation given to patient as well as encourage her to consider using Chantix or Zyban. Patient agrees to think about it. Patient was also instructed to increase fluid intake, eat a soft diet and practice good oral Hygiene. - Patient to call clinic with any concers, and to go to Er with any fevers, chest pain, SOB, bleeding. TIME SPENT: 20 minutes > 15 minutes includes but not limited to discussion, counselling and co-ordination~ of care. Discussion with other health care providers, record review, review of lab work, diagnostic tests. Plan discussed extensively with patient. All the questions answered today. Thank you for the opportunity to be involved in the care of Susan Tejada. Billing Level: Return visit 3 CC Copies to: LUCÍA MEDINA MD, SARA FNP-C, ONC Nov 30, 2017 18:16
[2017-12-05 11:14] VITALS: BP 101/56
[2017-12-05 11:15] LABS: PLATELET COUNT, AUTOMATED 104 K/uL (150-450)
[2017-12-05] MEDS: HEPARIN FLSH (PORT) 500 UN/5ML IVP PRN (12:05)
--- NOTE | 2017-12-05 16:41 | Oncology Progress Note ---
History of Present Illness Evaluation Evaluation Date: Dec 05, 2017 Evaluation Time: 11:30 Primary Care Provider Primary Care Provider: Adalid Youssef Accompanied by Accompanied by: Last seen by : Benigno 11/09/17 Chief Complaint Chief Complaint: f/u Mantle cell lymphoma stage IV Oncology History Oncology History: Oct 18 2017 1.CD5 positive B-cell lymphoproliferative disorder, phenotypically consistent with mantle cell lymphoma by flow cytometry of the peripheral blood done on October 18, 2017. 2. CT chest, abdomen, pelvis done on the October 18, 2017 did reveal bulky mediastinal and bilateral hilar adenopathy, in addition to massive retroperitoneum mesenteric adenopathy and periportal adenopathy. 3.There was also massive splenomegaly. I am planning to do staging workup, so I am planning to send the patient for a PET scan and bone marrow aspiration biopsy 4. I am planning to treat her with a combination of bendamustine and rituximab. With her bulky disease patient is liable to have tumor lysis syndrome and she was advised about that. 5. I am planning to check also her CBC, chem panel, LDH and uric acid. 6. And we will check her PET scan. I will see the patient next week for further evaluation and management. I spent a long time with the patient and her explaining the plan of management and side effects expected from treatment, and they are agreeable with the plan of management. - October 29, 2017 Mantle cell lymphoma stage IV revealed by Bone marrow aspiration biopsy done on October 29, 2017 was positive for mantel cell lymphoma - November 14, 2017 first treatment of Rituximab and Bendamustine, - November 16, 2017 TLS Hospitalized and treated at [facility] Treatment Treatment: - November 14, 2017 first treatment of Rituximab and Bendamustine, - November 16, 2017 TLS Hospitalized and treated at [facility] - November 25, 2017 Presumed Neutropenic fever- admitted at [facility] HPI HPI: Mrs. Luis M Davis is a 72 year old woman who has Mantle cell lymphoma stage IV revealed by Bone marrow aspiration biopsy done on October 29, 2017 was positive for mantel cell lymphoma. The BCL1 and SOX11 were positive. Flow cytometry was positive for CD5 monoclonal B-cell population. FISH was positive for variant translocation 11; 14. Patient initiated first treatment of Rituximab and Bendamustine on November 14, 2017, and she was recently hospitalized and treated at [facility] on November 25, 2017 Presumed Neutropenic fever; and on 11/16/17 for TLS. Patient is seen and examined at the infusion room, by her side. She s hemodinamically stable. She denies fevers, chills, headache, palpitations, Sob, no abdominal pain, no difficulty swallowing. She reports cutting down on smoking and gradual improvement on PO nutritional intake, and weakness. she informs me that is using her walker at home, and that has helped her with falling and balancing on her feet. Living Conditions: Lives with Don. PAST MEDICAL HISTORY 1. Trigeminal neuralgia. 2. Hypertension. 3. Hyperlipidemia. 4. GERD. PAST SURGICAL HISTORY 1. Tonsillectomy. 2. Surgery for trigeminal neuralgia. 3. Appendectomy. 4. Hysterectomy. 5. Cochlear implant surgery. 6. Surgery for left ankle fracture. Diagnostic Studies Result Diagram: 12/05/17 1106 12/05/17 1106 Social/Occupational History Social History: Social History This is a 72 Yr old White female, she is M and has [] Children Hx Smoking: Yes (1ppd) Smoking Status: Current: Every Day Smoker Exposure to Second Hand Smoke?: Yes Allergies & Medications Allergies: Coded Allergies: Sulfa (Sulfonamide Antibiotics) (Unverified Allergy, Unknown, UNKNOWN, 03/28) EHR Conversion amoxicillin (Unverified Allergy, Unknown, UNKNOWN, 10/18/17) EHR Conversion Penicillins (Verified Adverse Reaction, Intermediate, SEVERE DIARRHEA, 03/28) ? Hives Home Meds Active Scripts Levofloxacin 250 Mg Tab (LEVAQUIN 250 MG TAB) 250 Mg Tablet, 250 MG PO DAILY for 6 Days, #6 TAB Prov:DORIS NUÑEZ MD 11/24/17 Calcium Carbonate (CALCIUM ANTACID) 200 Mg Tab.chew, 1000 MG PO Q8H Y for HEARTBURN, #100 TAB.CHEW 1 Refill Prov:PRECIOUS KIM MD 11/19/17 Acyclovir (ACYCLOVIR) 200 Mg Capsule, 400 MG PO BID, #60 CAPSULE 1 Refill Prov:PRECIOUS KIM MD 11/19/17 Allopurinol (ZYLOPRIM 300 MG TAB (OR EQUIV)) 300 Mg Tab, 300 MG PO QDAY, #30 TAB 1 Refill Prov:PRECIOUS KIM MD 11/19/17 Oxycodone Hcl/Acetaminophen (PERCOCET 5-325 MG TABLET) 1 Each Tablet, 1 EACH PO Q6H Y for PAIN for 30 Days, TAB Prov:PRECIOUS KIM MD 11/19/17 Bisacodyl (DULCOLAX) 10 Mg Supp.rect, 10 MG RC DAILY Y for constipation for 30 Days, #10 SUPP.RECT Prov:LUCÍA MEDINA MD 10/23/17 Reported Medications Lorazepam (ATIVAN) 0.5 Mg Tablet, 0.5 MG PO Q4-6H Y for NAUSEA/VOMITING Take 1 to 2 tablets PRN anxiety/nausea/vomiting 11/21/17 Prochlorperazine Maleate (Compazine) 10 Mg Tablet, 10 MG PO Q6H Y for NAUSEA/ VOMITING 11/21/17 Ondansetron (ZOFRAN ODT) 4 Mg Tab.rapdis, 8 MG PO Q8H Y for NAUSEA, TAB.CARLOS 11/21/17 Atorvastatin Calcium (LIPITOR) 20 Mg Tablet, 1 TAB PO QHS, TAB 11/16/17 Estrogens, Conjugated (PREMARIN) 0.9 Mg Tablet, 0.9 MG PO 3XW 11/16/17 Glucosamine Sulfate 2KCL (GLUCOSAMINE SULFATE) 1,000 Mg Tablet, 1 TAB PO BID 10/08/17 Review of Systems Constitution: Positive for Appetite/Weight Change, Positive for Recent Infection, Denies Other HEENT: No EARS: Tinnitus, No NOSE: Nasal Discharge, No THROAT: Sore Throat, No EYES: Dipolpia, No EARS: Hearing Problems, No NOSE: Epistaxis, No THROAT: Mouth Ulcers, No EYES: Vision Change, No OTHER Respiratory: No Cough, No Expectoration, No Hemoptysis, No Shortness of Breath , No OTHER Cardiovascular: No Chest Pain, No Orthopnea, No Edema, No Palpitations, No OTHER Gastrointestinal: Nausea Gentiourinary: No Hematuria, No Dysuria, No Nocturia, No Other Musculoskeletal: No Muscle Pain, No Joint Pain, No Bone Pain, No Other Hematological: Weakness (mildly improving), Fatigue Skin: No Skin Rash, No Lumps, No Erythema, No Dry Skin, No Moist Skin, No Other Psychiatric: Anxiety Vital Signs Vital Signs Temperature: 97.9 Pulse: 97 BP Systolic: 101 BP Diastolic: 56 Respiratory Rate: 16 O2 SAT: 92 O2 Delivery: Height (feet) Height (inches) 62.50 Weight lb: 135 Weight oz: 2.0 Weight Kg (Omi): Pain: 0 Physical Exam General: Other (emaciated, ill looking) HEENT: No HEAD:Atraumatic, No EYES: Conjuctivitis, No EYES: Icterus, No MOUTH: Mucocitis, No MOUTH: Oral Thrush, No SINUS: Tenderness to Palpation, No Other Neck: Supple Lungs: Clear to Auscultation, Other (Diminished) Heart: Regular Rate and Rhythm Abdomen: Soft and Nontender, Hepatosplenomegaly Extremities: No Cyanosis, No Clubbing, No Edema, No Other Lymphatics: No Peripheral Lymphadenopathy, No Other Psychiatric: No Mood appears normal, No Affect appears normal, No Other Skin: No Skin Rashes, No Bruising, No Purpura, No Moist Desquamation, No Dry Desquamation, No Errythema, No Mild Errythema, No Moderate Errythema, No Severe Errythema, No Induration, No Other Breast: No No Masses, No No Nipple Discharge, No No Skin Changes, No Other Assessment and Plan Assessment and Plan: Mrs. Luis M Davis is a 72 year old woman who has Mantle cell lymphoma stage IV, revealed by Bone marrow aspiration biopsy done on October 29, 2017 was positive for mantel cell lymphoma. patient initiated treatment on November 14, 2017 with Rituximab and Bendamustine. 2. Chemotherapy Induced Weakness: mildly improving. neuro exam with negative findings, patient is AAOX3, no changes in mental status, ambulating with a walker. 3. Fall precautions safety teaching reinforced to patient and , instructed to leave bathroom and hallways lights ON at evening, to remove all throw rugs. 4. A walker and Shower chair at patient's home, and she informs me that she is using the walker at home. 5. Smoking cessation: teaching reinforced and rationale for smoking cessation given to patient as well as encourage her to consider using Chantix or Zyban. Patient agrees to think about it. She informs me that she has been cutting down on her smoking. 6. Chemo induced nausea: patient instructe d to take antiemetic aaas instructed and east 30minutes before meals. Patient was also instructed to increase fluid intake, recomendations to drinkk filtered water wit h pieces of favorite fruit in the water to help with the flavor, and improve PO hydration. Patient and agree with recomendations. PLAN -Continue chemotherapy adjusted treatment Per MD orders - CONTINE TO F/U CBC, CMP,MAGNESIUM, - Consider Neupogen 300mcg SC at [place] , and replete Magnesium PRN - Patient to call clinic with any concers, and to go to Er with any fevers, chest pain, SOB, bleeding. TIME SPENT: 20 minutes > 15 minutes includes but not limited to discussion, counselling and co-ordination~ of care. Discussion with other health care providers, record review, review of lab work, diagnostic tests. Plan discussed extensively with patient. All the questions answered today. Thank you for the opportunity to be involved in the care of Susan Tejada. Billing Level: Return visit 4 CC Copies to: LUCÍA MEDINA MD; IESHA APODACA MD-ANDRAE TAYLOR-C, ONC Dec 05, 2017 16:40
[2017-12-11 11:05] VITALS: BP 115/60
[2017-12-11 11:21] LABS: PLATELET COUNT, AUTOMATED 114 K/uL (150-450)
[2017-12-11] MEDS: HEPARIN FLSH (PORT) 500 UN/5ML IVP PRN (12:46)
[2017-12-17 09:15] VITALS: BP 85/52
[2017-12-17] MEDS: ACETAMINOPHEN 325 MG TAB PO PRN (11:11)
[2017-12-17] MEDS: diphenhydrAMINE 50 MG/ML VIAL IVP PRN (11:13)
[2017-12-17] MEDS: PALONOSETRON 0.25 MG/5 ML VIAL IVP PRN (11:13)
[2017-12-17] MEDS: DEXAMETHASONE SOD PHOS 10MG/ML IVP PRN (11:14)
[2017-12-17] MEDS: HEPARIN FLSH (PORT) 500 UN/5ML IVP PRN (14:24)
[2017-12-17] MEDS: NS(*) 0.9% 500 ML BAG 500 ML IV PRN (14:25)
--- NOTE | 2017-12-18 11:21 | Oncology Progress Note ---
History of Present Illness Evaluation Evaluation Date: Dec 17, 2017 Evaluation Time: 11:30 Primary Care Provider Primary Care Provider: Adalid Youssef Accompanied by Accompanied by: Last seen by : Benigno 11/09/17 Chief Complaint Chief Complaint Skin Itchiness Oncology History Oncology History Oct 18 2017 1.CD5 positive B-cell lymphoproliferative disorder, phenotypically consistent with mantle cell lymphoma by flow cytometry of the peripheral blood done on October 18, 2017. 2. CT chest, abdomen, pelvis done on the October 18, 2017 did reveal bulky mediastinal and bilateral hilar adenopathy, in addition to massive retroperitoneum mesenteric adenopathy and periportal adenopathy. 3.There was also massive splenomegaly. I am planning to do staging workup, so I am planning to send the patient for a PET scan and bone marrow aspiration biopsy 4. planning to treat her with a combination of bendamustine and rituximab. With her bulky disease patient is liable to have tumor lysis syndrome and she was advised about that. 5. I am planning to check also her CBC, chem panel, LDH and uric acid. 6. And we will check her PET scan. I will see the patient next week for further evaluation and management. I spent a long time with the patient and her explaining the plan of management and side effects expected from treatment, and they are agreeable with the plan of management. - October 29, 2017 Mantle cell lymphoma stage IV revealed by Bone marrow aspiration biopsy done on October 29, 2017 was positive for mantel cell lymphoma - November 14, 2017 first treatment of Rituximab and Bendamustine, - November 16, 2017 TLS Hospitalized and treated at [facility] Treatment Treatment - November 14, 2017 first treatment of Rituximab and Bendamustine, - November 16, 2017 TLS Hospitalized and treated at [facility] - November 25, 2017 Presumed Neutropenic fever- admitted at [facility] HPI HPI Mrs. Luis M Davis is a 72 year old woman who has Mantle cell lymphoma stage IV Dx: 10/2017 revealed by Bone marrow aspiration biopsy. Being treated with Rituximab and Bendamustine since November 14, 2017. The BCL1 and SOX11 were positive. Flow cytometry was positive for CD5 monoclonal B-cell population. FISH was positive for variant translocation 11; 14. Patient is seen and examined at the infusion room, by her side. She is hemodynamically stable. She reports generalized body itchiness that gradually increased over the last few days. On Physical exam there is mild dryness, no scaling, or scratch medley, excoriation or lichenification are noted. She denies fevers, chills, headache, palpitations, Sob, no abdominal pain, no difficulty swallowing. She continues to cut down on smoking and gradual improvement on PO nutritional intake, and weakness. she continues to use her walker at home, and that has helped her with falling and balancing on her feet. Patient hospitalized and treated at [facility] on November 25, 2017 Presumed Neutropenic fever; and on 11/16/17 for TLS. Significant past medical history of GERD, hyperlipidemia , hypertension, and trigeminal neuralgia. Living Conditions Lives with her Anil. Diagnostic Studies Result Diagram: 12/17/17 0955 12/17/17 0955 Social/Occupational History Social History: Social History This is a 72 Yr old White female, she is M and has [] Children Hx Smoking: Yes (1ppd) Smoking Status: Current: Every Day Smoker Exposure to Second Hand Smoke?: Yes Allergies & Medications Allergies: Coded Allergies: Sulfa (Sulfonamide Antibiotics) (Unverified Allergy, Unknown, UNKNOWN, 03/28) EHR Conversion amoxicillin (Unverified Allergy, Unknown, UNKNOWN, 10/18/17) EHR Conversion Penicillins (Verified Adverse Reaction, Intermediate, SEVERE DIARRHEA, 03/28) ? Hives Home Meds Active Scripts Meclizine Hcl (MECLIZINE HCL) 25 Mg Tablet, 1 TAB PO BID for 30 Days, #60 TAB Prov:LUCÍA MEDINA MD 12/11/17 Levofloxacin 250 Mg Tab (LEVAQUIN 250 MG TAB) 250 Mg Tablet, 250 MG PO DAILY for 6 Days, #6 TAB Prov:DORIS NUÑEZ MD 11/24/17 Calcium Carbonate (CALCIUM ANTACID) 200 Mg Tab.chew, 1000 MG PO Q8H Y for HEARTBURN, #100 TAB.CHEW 1 Refill Prov:PRECIOUS KIM MD 11/19/17 Acyclovir (ACYCLOVIR) 200 Mg Capsule, 400 MG PO BID, #60 CAPSULE 1 Refill Prov:PRECIOUS KIM MD 11/19/17 Allopurinol (ZYLOPRIM 300 MG TAB (OR EQUIV)) 300 Mg Tab, 300 MG PO QDAY, #30 TAB 1 Refill Prov:PRECIOUS KIM MD 11/19/17 Oxycodone Hcl/Acetaminophen (PERCOCET 5-325 MG TABLET) 1 Each Tablet, 1 EACH PO Q6H Y for PAIN for 30 Days, TAB Prov:PRECIOUS KIM MD 11/19/17 Bisacodyl (DULCOLAX) 10 Mg Supp.rect, 10 MG RC DAILY Y for constipation for 30 Days, #10 SUPP.RECT Prov:LUCÍA MEDINA MD 10/23/17 Reported Medications Lorazepam (ATIVAN) 0.5 Mg Tablet, 0.5 MG PO Q4-6H Y for NAUSEA/VOMITING Take 1 to 2 tablets PRN anxiety/nausea/vomiting 11/21/17 Prochlorperazine Maleate (Compazine) 10 Mg Tablet, 10 MG PO Q6H Y for NAUSEA/ VOMITING 11/21/17 Ondansetron (ZOFRAN ODT) 4 Mg Tab.rapdis, 8 MG PO Q8H Y for NAUSEA, TAB.CARLOS 11/21/17 Atorvastatin Calcium (LIPITOR) 20 Mg Tablet, 1 TAB PO QHS, TAB 11/16/17 Estrogens, Conjugated (PREMARIN) 0.9 Mg Tablet, 0.9 MG PO 3XW 11/16/17 Glucosamine Sulfate 2KCL (GLUCOSAMINE SULFATE) 1,000 Mg Tablet, 1 TAB PO BID 10/08/17 Review of Systems Constitution: Positive for Appetite/Weight Change, Positive for Recent Infection, Denies Other HEENT: No EARS: Tinnitus, No NOSE: Nasal Discharge, No THROAT: Sore Throat, No EYES: Dipolpia, No EARS: Hearing Problems, No NOSE: Epistaxis, No THROAT: Mouth Ulcers, No EYES: Vision Change, No OTHER Respiratory: No Cough, No Expectoration, No Hemoptysis, No Shortness of Breath , No OTHER Cardiovascular: No Chest Pain, No Orthopnea, No Edema, No Palpitations, No OTHER Gastrointestinal: Nausea Gentiourinary: No Hematuria, No Dysuria, No Nocturia, No Other Musculoskeletal: No Muscle Pain, No Joint Pain, No Bone Pain, No Other Hematological: Weakness (mildly improving), Fatigue Skin: No Skin Rash, No Lumps, No Erythema, Dry Skin, No Moist Skin, Other ( itchiness) Psychiatric: Anxiety Vital Signs Vital Signs Temperature: 98.5 Pulse: 110 BP Systolic: 90 BP Diastolic: 47 Respiratory Rate: 16 O2 SAT: 92 O2 Delivery: Height (feet) Height (inches) 62.50 Weight lb: 135 Weight oz: 2.0 Weight Kg (Omi): Pain: 0 Physical Exam General: Other (emaciated, ill looking) HEENT: No HEAD:Atraumatic, No EYES: Conjuctivitis, No EYES: Icterus, No MOUTH: Mucocitis, No MOUTH: Oral Thrush, No SINUS: Tenderness to Palpation, No Other Neck: Supple Lungs: Clear to Auscultation, Other (Diminished) Heart: Regular Rate and Rhythm Abdomen: Soft and Nontender, Hepatosplenomegaly Extremities: No Cyanosis, No Clubbing, No Edema, No Other Lymphatics: No Peripheral Lymphadenopathy, No Other Psychiatric: No Mood appears normal, No Affect appears normal, No Other Skin: No Skin Rashes, No Bruising, No Purpura, No Moist Desquamation, No Dry Desquamation, No Errythema, No Mild Errythema, No Moderate Errythema, No Severe Errythema, No Induration, Other (mild dryness) Breast: No No Masses, No No Nipple Discharge, No No Skin Changes, No Other Assessment and Plan Assessment and Plan Mrs. Luis M Davis is a 72 year old woman who has Mantle cell lymphoma stage IV Dx: 10/2017 revealed by Bone marrow aspiration biopsy. Being treated with Rituximab and Bendamustine since November 14, 2017 - Skin Itchiness. Benadryl 25 mg Po and topical Benadryl rx to use PRN. and to use lotion, emollients PRN. - Chemotherapy Induced Weakness: mildly improving. neuro exam with negative findings, patient is AAOX3, no changes in mental status, ambulating with a walker - Fall precautions safety teaching reinforced to patient and -Smoking cessation: teaching reinforced and rationale for smoking cessation reinforced -. Chemo induced nausea patient instructed continue to take antiemetic as instructed and east 30-45minutes before meals. - Constipation, continue to take stool softeners and Patient was also instructed to increase fluid intake PLAN #1 Patient complains of skin itching we would prescribe Benadryl 25 mg by mouth patient to take one tablet at bedtime 5 pills and we will reevaluate response next Sunday. Patient to use lotion, emollients PRN #2 patient may APPLY Benadryl cream [id number] to affected area as needed #3 patient to continue taking one tablet of Senokot daily at bedtime for constipation #4 Patient to call clinic with any concerns, and to go to Er with any fevers, chest pain, SOB, bleeding TIME SPENT: 30 minutes 25> minutes includes but not limited to discussion, counselling and co-ordination~ of care. Discussion with other health care providers, record review, review of lab work, diagnostic tests. Plan discussed extensively with patient. All the questions answered today. Thank you for the opportunity to be involved in the care of Susan Asencio. Billing Level: Return visit 4 ANDRAE GREEN, ONC Dec 17, 2017 17:19
[2017-12-18 15:08] VITALS: BP 93/55
[2017-12-24] MEDS: HEPARIN FLSH (PORT) 500 UN/5ML IVP PRN (12:17)
[2017-12-24 15:06] VITALS: BP 89/57
[2017-12-31 11:22] VITALS: BP 109/46
[2017-12-31 11:23] LABS: PLATELET COUNT, AUTOMATED 195 K/uL (150-450)
[2017-12-31] MEDS: HEPARIN FLSH (PORT) 500 UN/5ML IVP PRN (14:00)
[2017-12-31 14:28] VITALS: BP 110/47
--- NOTE | 2017-12-31 16:11 | Medical Nutrition Therapy ---
Nutrition Anthropometrics Height (Inches): 62.50 Height (Calculated Centimeters: 158.7500 Weight (Pounds): 125 (patient states usual weight prior to Cancer Tx was 160 lbs) Hx Weight Loss: Yes (13 lbs in 2 months, 35 lbs in 6 months ) Dietary Referral Nutritional Education Nutrition Education Topic: Other (nutrition during cancer treatment ) Learning Readiness: Interested Teaching Methods: Discussion, Handout Response to Teaching: Verbalize understanding Teaching Recipient: Patient, Significant Other () Nutrition Counseling: Provided and reviewed handout on Nutrition during cancer treatment, reviewed sections on nausea and diarrhea and encourage her to review other sections if she experiences other nutrition impact symptoms. Patient will track dietary intake and symptoms for 1 week and email me the information to review. Nutrition Monitoring & Eval Nutrition Goals: Eat 75-100% Meal, Drink > 2 liters/day Nutritional Goals Comment: stabilize weight, normalize bowel movements (reduce episodes of diarrhea, constipation cycle), reduce fear of eating due to experiencing nausea and at times vomiting. Nutrition Monitoring: I will review patient dietary intake, nutrition impact symptoms and provide additional education and recommendations as needed RD Patient Assessment Time: [address] Assessment Type: RD Education Patient Nutrition Acuity: 2-Moderate Nutritional Comment: Encourage patient to call or let RN know if she would like to discuss any nutrition issues. AMY SERNA RDN, LD Dec 31, 2017 16:11
[2018-01-07 11:31] LABS: PLATELET COUNT, AUTOMATED 180 K/uL (150-450)
[2018-01-11 11:09] VITALS: BP 113/69
--- NOTE | 2018-01-11 15:35 | Medical Nutrition Therapy ---
Nutrition Anthropometrics Height (Inches): 62.50 Height (Calculated Centimeters: 158.7500 Weight (Pounds): 115 (patient states usual weight prior to Cancer Tx was 160 lbs) Hx Weight Loss: Yes (pt has lost 10lbs in 12 days ) Dietary Referral Nutrition Risk Factors: Unplanned Loss >10lbs Nutrition Risk Comment: Nutrition/Food History Decreased Appetite, > 10 lb Wt Loss/1 Month patient completed 1 week dietary intake - ~350 cals, 8gr Protein/day Poor Skipped Meals: Yes (only eats 2 small meals per day ) Breakfast: fruit/bread Lunch: skips Dinner: soup Snacks: none Nutritional Education Nutrition Education Topic: Other (increasing calories) Learning Readiness: Interested Teaching Methods: Discussion Response to Teaching: Verbalize understanding Teaching Recipient: Patient, Significant Other Nutrition Counseling: encouraged patient to eat more often, small meals with snacks, make every bite as nutritionally dense as possible, drink fluids containing calories (milk, gatorade, Ensure, juice). Patient will try adding Ensure in milkshakes Nutrition Monitoring & Eval Nutritional Goals Comment: Increase calorie/protein intake to ~7662-7588 calories, with 60-65 gram Protein/day, incorporate Ensure into diet, no further weight loss Nutrition Follow-Up: Poor Intake Nutrition Monitoring: I will continue to monitor and provide patient with education to manage nutrition impact symptoms RD Patient Assessment Time: [address] Assessment Type: RD Education Patient Nutrition Acuity: 1-High Nutritional Comment: Encourage patient to call or let RN know if she would like to discuss any nutrition issues. AMY SERNA RDN, RICHARD Jan 11, 2018 15:35
--- NOTE | 2018-01-11 16:29 | ONCOLOGY FOLLOW UP NOTE ---
EVENT DATE: January 11, 2018 DIAGNOSES 1. Stage IV mantel cell lymphoma. 2. Hypertension. 3. Hyperlipidemia. CHIEF COMPLAINT Patient is here today for followup of her stage IV mantle cell lymphoma. ONCOLOGY HISTORY Patient is a 72-year-old female who presented to the emergency department at [facility] in [place], [place] with left-sided abdominal pain on and off for the last few months. During her evaluation the patient was found to have lymphocytosis with 71% lymphocytes, 20% neutrophils and fullness in the left upper quadrant due to splenomegaly suspicious for lymphoma, so the patient had a CT chest, abdomen and pelvis done on October 18, 2017 which showed bulky mediastinal and bilateral hilar adenopathy, in addition to massive retroperitoneal mesenteric adenopathy and periportal adenopathy. Massive splenomegaly was also noted. There was a mass effect on the mid splenic vein by the lymph node mass. There was extensive honeycombing in the right lower lobe adjacent irregular cavitary lesion likely chronic. There was also noted 5 mm subpleural noncalcified nodule in the right lower lobe. 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 Patient had a PET CT scan done on November 08, 2017 which showed lymphadenopathy above and below the diaphragm. She had marked splenomegaly, hilar adenopathy, mediastinal adenopathy, left internal mammary lymph node activity, gastrohepatic in the periportal region. Retropleural adenopathy along the aorta. Periaortic activity down through the abdomen to the bifurcation. Bone marrow aspiration biopsy done on October 29, 2017 was positive for mantel cell lymphoma. The BCL1 and SOX11 were positive. Flow cytometry was positive for CD5 monoclonal B-cell population. FISH was positive for variant translocation 11;14. Patient started chemotherapy with rituximab and bendamustine on November 14, 2017. HISTORY OF PRESENT ILLNESS Patient is here today for cycle number three of rituximab and bendamustine for her stage IV mantle cell lymphoma. She is complaining of loose stools. She has also nasal discharge. She is very weak, tired and fatigued. She lost a lot of weight, but her calorie intake is very low because of her loss of appetite. PAST MEDICAL HISTORY 1. Trigeminal neuralgia. 2. Hypertension. 3. Hyperlipidemia. 4. GERD. PAST SURGICAL HISTORY 1. Tonsillectomy. 2. Surgery for trigeminal neuralgia. 3. Appendectomy. 4. Hysterectomy. 5. Cochlear implant surgery. 6. Surgery for left ankle fracture. FAMILY HISTORY Mother had lung cancer. SOCIAL HISTORY Patient is with no children. She is a homemaker. She smoked one and a half packs a day for 50 years. She drinks wine and beer two to three a day for a long time. Denies any abuse of illicit drugs. CURRENT MEDICATIONS 1. Percocet 5/325 mg tablet q.6 hourly p.r.n. for pain. 2. Benazepril hydrochloride 10 mg daily. 3. Amlodipine 5 mg daily. 4. Glucosamine sulfate 1000 mg tablet twice daily. 5. Premarin 0.9 mg tablet daily. 6. Lipitor 20 mg daily. 7. Calcium with vitamin D one tablet daily. ALLERGIES 1. PENICILLIN DERIVATIVES. 2. AMOXICILLIN which caused diarrhea. 3. SULFA, which does not know the reaction. REVIEW OF SYSTEMS CONSTITUTIONAL: The patient has loss of appetite and loss of weight. No fever , chills or sweating. No recent infection. HEENT: Ears: No tinnitus or hearing problem. Nose: She has nasal discharge. No epistaxis. Throat: No sore throat or mouth ulcers. Eyes: No diplopia or visual changes. RESPIRATORY: No shortness of breath. No cough, expectoration or hemoptysis. CARDIOVASCULAR: No chest pain, orthopnea, or paroxysmal nocturnal dyspnea (PND) . No edema. No palpitations. GASTROINTESTINAL: Nausea. She has loose stools. GENITOURINARY: No hematuria or dysuria. MUSCULOSKELETAL: No pain in the muscles, joints or bones. NEUROLOGICAL: No tingling or numbness in the hands or feet. No headaches or convulsions. HEMATOLOGIC/LYMPHATIC: No bleeding or easy bruising. She is weak, tired and fatigued. No enlarged lymph nodes. SKIN: No skin rash or lumps. PSYCHIATRIC: No anxiety or depression. PHYSICAL EXAMINATION GENERAL: Looks stable. Well-developed, well-nourished, and in no acute distress. VITAL SIGNS: Blood pressure 113/69, pulse 108 per minute, respirations 16 per minute, temperature 96.8, pulse ox 90% on room air. HEENT: Head: Atraumatic. No sinus tenderness to palpation. Eyes: No icterus or conjunctivitis. Mouth and Throat: No oral thrush or mucositis. NECK: Supple. No cervical or supraclavicular lymphadenopathy. LUNGS: Clear to auscultation and percussion bilaterally. HEART: Regular rate and rhythm. No gallops, murmurs, clicks or rubs. ABDOMEN: Soft and lax. No tenderness. No hepatosplenomegaly. No masses. EXTREMITIES: No cyanosis, clubbing or edema. LYMPHATICS: No peripheral lymphadenopathy. NEUROLOGICAL: Conscious, alert and oriented times three. No focal motor or sensory deficits. PSYCHIATRIC: Mood and affect appear normal. SKIN: No skin rash, bruise or purpuric eruption. DIAGNOSTIC DATA CBC showed white count 8.4, hemoglobin 12.7, hematocrit 37, platelets 180,000. Chem panel totally normal except sodium 136, creatinine 1.1, calcium 7.9, total protein 5, albumin 2.7. ASSESSMENT 1. Stage IV mantle cell lymphoma with CD5 positive, B-cell lymphoproliferative disorder, phenotypically consistent with mantle cell lymphoma by flow cytometry of the peripheral blood done on October 18, 2017. CT chest, abdomen, pelvis done on the October 18, 2017 did reveal bulky mediastinal, bilateral hilar, in addition to massive retroperitoneal mesenteric adenopathy and periportal adenopathy. There was also massive splenomegaly. Those results are confirmed by PET scan done on November 08, 2017. Bone marrow aspiration biopsy done on October 29, 2017 came back positive for mantle cell lymphoma. BCL1 and SOX11 were positive. FISH was positive for variant translocation 11;14. Patient started treatment with rituximab and bendamustine on November 14, 2017. She received two cycles so far and she is due for her next cycle of chemotherapy on January 14, 2018. Her treatment is complicated with nausea and loose stools. She has nasal discharge. She has severe loss of appetite and weight and she lost a lot of weight since she started her chemotherapy, but her calorie intake is very low. I am planning to proceed with her third cycle after modification of the dose on time as per schedule, and I will have the architecture manager to help the patient to have some calorie supplement to help her body weight. I will see her again in four weeks with CBC, chem panel, LDH, uric acid. I will check CBC, chem panel weekly and I will give Neulasta after each cycle of chemotherapy. 2. Loss of appetite and weight. Patient is going to see a architecture manager. 3. Hypertension on treatment. 4. Hyperlipidemia on treatment. PLAN 1. Rituximab, bendamustine. This will be cycle number three. 2. CBC, chem panel to be checked weekly. 3. Neulasta 6 mg after each cycle of chemotherapy. 4. Patient to return in four weeks with CBC, chem panel, LDH, uric acid. 5. Patient to contact us for any new concerns or complaints. MTDD
[2018-01-14] MEDS: NS(*) 0.9% 500 ML BAG 500 ML IV PRN ×2 (09:30→10:38)
[2018-01-14] MEDS: HEPARIN FLSH (PORT) 500 UN/5ML IVP PRN (11:22)
--- NOTE | 2018-01-14 15:34 | Oncology Progress Note ---
History of Present Illness Evaluation Evaluation Date: Jan 14, 2018 Evaluation Time: 10:30 Primary Care Provider Primary Care Provider: Adalid Youssef Accompanied by Accompanied by: Last seen by : Benigno 01/11/18 Chief Complaint Chief Complaint Urinary frequency, and Burning sensation Oncology History Oncology History Oct 18 2017 1.CD5 positive B-cell lymphoproliferative disorder, phenotypically consistent with mantle cell lymphoma by flow cytometry of the peripheral blood done on October 18, 2017. 2. CT chest, abdomen, pelvis done on the October 18, 2017 did reveal bulky mediastinal and bilateral hilar adenopathy, in addition to massive retroperitoneum mesenteric adenopathy and periportal adenopathy. 3.There was also massive splenomegaly. I am planning to do staging workup, so I am planning to send the patient for a PET scan and bone marrow aspiration biopsy 4. planning to treat her with a combination of bendamustine and rituximab. With her bulky disease patient is liable to have tumor lysis syndrome and she was advised about that. 5. I am planning to check also her CBC, chem panel, LDH and uric acid. 6. And we will check her PET scan. I will see the patient next week for further evaluation and management. I spent a long time with the patient and her explaining the plan of management and side effects expected from treatment, and they are agreeable with the plan of management. - October 29, 2017 Mantle cell lymphoma stage IV revealed by Bone marrow aspiration biopsy done on October 29, 2017 was positive for mantel cell lymphoma - November 14, 2017 first treatment of Rituximab and Bendamustine, - November 16, 2017 TLS Hospitalized and treated at [facility] Treatment Treatment - November 14, 2017 first treatment of Rituximab and Bendamustine, - November 16, 2017 TLS Hospitalized and treated at [facility] - November 25, 2017 Presumed Neutropenic fever- admitted at [facility] HPI HPI Mrs. Luis M Davis is a 72 year old woman who has Mantle cell lymphoma stage IV Dx: 10/2017 revealed by Bone marrow aspiration biopsy. Being treated with Rituximab and Bendamustine since November 14, 2017 (patient has received 2 cycles to date, due to side effects toxicities). Patient is seen at the infusion center for evaluation of treatment and disease management. by her side. She is hemodynamically stable. On Physical exam, she is emaciated, patient describes having symptoms of UTI for the last couple of days or so, this coupled with significant weight loss, and weakness we will not go ahead with treatment as planned for today. She denies fevers, chills, headache, palpitations, Sob, no abdominal pain, no difficulty swallowing. She continues to cut down on smoking, poor PO nutritional intake, and weakness. she continues to use her walker at home, and that has helped her with falling and balancing on her feet. The BCL1 and SOX11 were positive. Flow cytometry was positive for CD5 monoclonal B-cell population. FISH was positive for variant translocation 11; 14.Patient hospitalized and treated at [facility] on November 25, 2017 Presumed Neutropenic fever; and on 11/16/17 for TLS. Significant past medical history of GERD, hyperlipidemia, hypertension, and trigeminal neuralgia. Diagnostic Studies Result Diagram: 01/14/[id number]/[id number]/18914 Social/Occupational History Social History: Social History This is a 72 Yr old White female, she is M and has [] Children Hx Smoking: Yes (1ppd) Smoking Status: Current: Every Day Smoker Exposure to Second Hand Smoke?: Yes Allergies & Medications Allergies: Coded Allergies: Sulfa (Sulfonamide Antibiotics) (Unverified Allergy, Unknown, UNKNOWN, 03/28) EHR Conversion amoxicillin (Unverified Allergy, Unknown, UNKNOWN, 10/18/17) EHR Conversion Penicillins (Verified Adverse Reaction, Intermediate, SEVERE DIARRHEA, 03/28) ? [facility] Home Meds Active Scripts Meclizine Hcl (MECLIZINE HCL) 25 Mg Tablet, 1 TAB PO BID for 30 Days, #60 TAB Prov:LUCÍA MEDINA MD 12/11/17 Levofloxacin 250 Mg Tab (LEVAQUIN 250 MG TAB) 250 Mg Tablet, 250 MG PO DAILY for 6 Days, #6 TAB Prov:DORIS NUÑEZ MD 11/24/17 Calcium Carbonate (CALCIUM ANTACID) 200 Mg Tab.chew, 1000 MG PO Q8H Y for HEARTBURN, #100 TAB.CHEW 1 Refill Prov:PRECIOUS KIM MD 11/19/17 Acyclovir (ACYCLOVIR) 200 Mg Capsule, 400 MG PO BID, #60 CAPSULE 1 Refill Prov:PRECIOUS KIM MD 11/19/17 Allopurinol (ZYLOPRIM 300 MG TAB (OR EQUIV)) 300 Mg Tab, 300 MG PO QDAY, #30 TAB 1 Refill Prov:PRECIOUS KIM MD 11/19/17 Oxycodone Hcl/Acetaminophen (PERCOCET 5-325 MG TABLET) 1 Each Tablet, 1 EACH PO Q6H Y for PAIN for 30 Days, TAB Prov:PRECIOUS KIM MD 11/19/17 Bisacodyl (DULCOLAX) 10 Mg Supp.rect, 10 MG RC DAILY Y for constipation for 30 Days, #10 SUPP.RECT Prov:LUCÍA MEDINA MD 10/23/17 Reported Medications Triamcinolone Acetonide 0.1% Cr 15 Gm Tube (TRIAMCINOLONE ACETONIDE 0.1% CREAM) 15 Gm Cream..g., 60 GM TP BID Y for ITCHING, TUBE 12/18/17 Lorazepam (ATIVAN) 0.5 Mg Tablet, 0.5 MG PO Q4-6H Y for NAUSEA/VOMITING Take 1 to 2 tablets PRN anxiety/nausea/vomiting 11/21/17 Prochlorperazine Maleate (Compazine) 10 Mg Tablet, 10 MG PO Q6H Y for NAUSEA/ VOMITING 11/21/17 Ondansetron (ZOFRAN ODT) 4 Mg Tab.rapdis, 8 MG PO Q8H Y for NAUSEA, TAB.CARLOS 11/21/17 Atorvastatin Calcium (LIPITOR) 20 Mg Tablet, 1 TAB PO QHS, TAB 11/16/17 Estrogens, Conjugated (PREMARIN) 0.9 Mg Tablet, 0.9 MG PO 3XW 11/16/17 Glucosamine Sulfate 2KCL (GLUCOSAMINE SULFATE) 1,000 Mg Tablet, 1 TAB PO BID 10/08/17 Review of Systems Constitution: Positive for Appetite/Weight Change (Signficant weight loss), Positive for Recent Infection, Denies Other HEENT: No EARS: Tinnitus, No NOSE: Nasal Discharge, No THROAT: Sore Throat, No EYES: Dipolpia, No EARS: Hearing Problems, No NOSE: Epistaxis, No THROAT: Mouth Ulcers, No EYES: Vision Change, No OTHER Respiratory: No Cough, No Expectoration, No Hemoptysis, No Shortness of Breath , No OTHER Cardiovascular: No Chest Pain, No Orthopnea, No Edema, No Palpitations, No OTHER Gastrointestinal: No Nausea, No Vomitting, No Diarrehea, No Constipation, No Heart Burn, No Swallowing Difficulties, No Abdominal Pain, No Other Gentiourinary: Dysuria, No Nocturia, Other (frequency, burning with urination) Musculoskeletal: No Muscle Pain, No Joint Pain, No Bone Pain, No Other Hematological: Weakness (mildly improving), Fatigue Skin: Skin Rash, No Lumps, No Erythema, Dry Skin, No Moist Skin, Other Psychiatric: Anxiety Vital Signs Vital Signs Temperature: 96.7 Pulse: 100 BP Systolic: 101 BP Diastolic: 46 Respiratory Rate: 16 O2 SAT: 93 O2 Delivery: Height (feet) Height (inches) 62.50 Weight lb: 115 Weight oz: 2.0 Weight Kg (Omi): Pain: 0 ECOG-3 Physical Exam General: Other (emaciated, ill looking) HEENT: No HEAD:Atraumatic, No EYES: Conjuctivitis, No EYES: Icterus, No MOUTH: Mucocitis, No MOUTH: Oral Thrush, No SINUS: Tenderness to Palpation, No Other Neck: Supple Lungs: Clear to Auscultation, Other (Diminished) Heart: Regular Rate and Rhythm Abdomen: Soft and Nontender, Hepatosplenomegaly Extremities: No Cyanosis, No Clubbing, No Edema, No Other Lymphatics: No Peripheral Lymphadenopathy, No Other Psychiatric: No Mood appears normal, No Affect appears normal, No Other Skin: No Skin Rashes, No Bruising, No Purpura, No Moist Desquamation, No Dry Desquamation, No Errythema, No Mild Errythema, No Moderate Errythema, No Severe Errythema, No Induration, Other (mild dryness) Breast: No No Masses, No No Nipple Discharge, No No Skin Changes, No Other Assessment and Plan Assessment and Plan Mrs. Luis M Davis is a 72 year old woman who has DIAGNOSTIC DATA. [facility] on [facility]. 1. Mantle cell lymphoma stage IV Dx: 10/2017 revealed by Bone marrow aspiration biopsy. Being treated with Rituximab and Bendamustine since November 14, 2017 ( patient has received 2 cycles to date, due to side effects toxicities). - Nutrition deficit and signifcant weight loss. Patient was seen by Industrial Engineering Director on 01/11/2018. I encouraged patient to increase Po intake. Skin Itchiness. Resolved with topical emollient. triamcinolone/vanicream, and atarax. Benadryl 25 mg PO. and topical Benadryl rx to use PRN. and to use lotion , emollients PRN. - Chemotherapy Induced Weakness: mildly improving. neuro exam with negative findings, patient is AAOX3, no changes in mental status, ambulating with a walker - Fall precautions safety teaching reinforced to patient and -Smoking cessation: teaching reinforced and rationale for smoking cessation reinforced -. Chemo induced nausea .resolved. patient instructed continue to take antiemetic as instructed and east 30-45minutes before meals. - Constipation, continue to take stool softeners and Patient was also instructed to increase fluid intake PLAN #1 Patient complains of UTI symptoms. we will order a UA c/S. and empirically initiate treatment with levofloxacin 250mg PO DailyX7 days. while awaiting UA results. #2 Chemo to be held today, due to presumed UTI infection #3 patient to continue taking one tablet of Senokot daily at bedtime for constipation #4 .Patient to start taking mag oxide 250-400mg PO daily. Mag today is 1.7 #5 Chemo dose reduction to be modified, will discuss with Dr. Pelaez #6 Patient to call clinic with any concerns, and to go to Er with any fevers, chest pain, SOB, bleeding -Education, patient instructed to go to ER immediately and or call Clinic if any Shortness of Breath, Temp >/=100.4, fevers, chills, cardiac type chest pain , bleeding, excessive bruising, headaches, blurry vision, dizziness, abdominal pain, difficulty swallowing, and pain unrelieved by prescribed medication. TIME SPENT: 20 minutes 15> minutes includes but not limited to discussion, counselling and co-ordination~ of care. Discussion with other health care providers, record review, review of lab work, diagnostic tests. Plan discussed extensively with patient. All the questions answered today. Thank you for the opportunity to be involved in the care of Susan Asencio. Billing Level: Return visit 3 NORMAANDRAE MARIA ALEJANDRA, ONC Jan 14, 2018 15:34
[2018-01-21 09:34] VITALS: BP 88/49
[2018-01-21] MEDS: ACETAMINOPHEN 325 MG TAB PO PRN (10:07)
[2018-01-21] MEDS: DEXAMETHASONE SOD PHOS 10MG/ML IVP PRN (10:07)
[2018-01-21] MEDS: diphenhydrAMINE 50 MG/ML VIAL IVP PRN (10:07)
[2018-01-21] MEDS: PALONOSETRON 0.25 MG/5 ML VIAL IVP PRN (10:08)
[2018-01-21] MEDS: NS(*) 0.9% 500 ML BAG 500 ML IV PRN (11:01)
--- NOTE | 2018-01-21 12:03 | Oncology Progress Note ---
History of Present Illness Evaluation Evaluation Date: Jan 21, 2018 Evaluation Time: 11:30 Primary Care Provider Primary Care Provider: Adalid Youssef Accompanied by Accompanied by: Last seen by : Benigno 01/11/18 Chief Complaint Chief Complaint management Mantle cell lymphoma stage IV - rituximab and Bendamustine cycle#3 today 01/21/2018. Oncology History Oncology History Oct 18 2017 1.CD5 positive B-cell lymphoproliferative disorder, phenotypically consistent with mantle cell lymphoma by flow cytometry of the peripheral blood done on October 18, 2017. 2. CT chest, abdomen, pelvis done on the October 18, 2017 did reveal bulky mediastinal and bilateral hilar adenopathy, in addition to massive retroperitoneum mesenteric adenopathy and periportal adenopathy. 3.There was also massive splenomegaly. I am planning to do staging workup, so I am planning to send the patient for a PET scan and bone marrow aspiration biopsy 4. planning to treat her with a combination of bendamustine and rituximab. With her bulky disease patient is liable to have tumor lysis syndrome and she was advised about that. 5. I am planning to check also her CBC, chem panel, LDH and uric acid. 6. And we will check her PET scan. I will see the patient next week for further evaluation and management. I spent a long time with the patient and her explaining the plan of management and side effects expected from treatment, and they are agreeable with the plan of management. - October 29, 2017 Mantle cell lymphoma stage IV revealed by Bone marrow aspiration biopsy done on October 29, 2017 was positive for mantel cell lymphoma - November 14, 2017 first treatment of Rituximab and Bendamustine, - November 16, 2017 TLS Hospitalized and treated at [facility] Treatment Treatment November 14, 2017 first treatment of Rituximab and Bendamustine, - November 16, 2017 TLS Hospitalized and treated at [facility] - November 25, 2017 Presumed Neutropenic fever- admitted at [facility] - January 21, 2018 Cycle#3 Rituximab and Bendamustine at 150mg. HPI HPI Mrs. Luis M Davis is a 72 year old woman who has Mantle cell lymphoma stage IV Dx: 10/2017 revealed by Bone marrow aspiration biopsy. Being treated with Rituximab and Bendamustine since November 14, 2017 (patient has received 2 cycles to date, due to side effects toxicities). Patient is seen at the [facility] center for evaluation of treatment and disease management. by her side. She is hemodynamically stable. On Physical exam, she is emaciated, patient reports UTI symptoms have resolved (treated with empirics abx). She reports some improvement on her appetite, she is frustrated today because f loose stool. patient main diet consist of shakes and smoothies. She was instructed to eat incorporate solids, and maybe skip the shakes every other day. She looks the strongest she has been in a while, and counts are within acceptable parameters, we will go ahead with cycle #3 today.She denies fevers, chills, headache, palpitations, Sob, no abdominal pain, no difficulty swallowing. She continues to cut down on smoking, poor PO nutritional intake, and weakness. she continues to use her walker at home, and that has helped her with falling and balancing on her feet. The BCL1 and SOX11 were positive. Flow cytometry was positive for CD5 monoclonal B-cell population. FISH was positive for variant translocation 11; 14.Patient hospitalized and treated at [facility] on November 25, 2017 Presumed Neutropenic fever; and on 11/16/17 for TLS. Significant past medical history of GERD, hyperlipidemia, hypertension, and trigeminal neuralgia. Living Conditions Don, . Diagnostic Studies Result Diagram: 01/21/18 0920 01/21/18 0920 Social/Occupational History Social History: Social History This is a 72 Yr old White female, she is M and has [] Children Hx Smoking: Yes (1ppd) Smoking Status: Current: Every Day Smoker Exposure to Second Hand Smoke?: Yes Allergies & Medications Allergies: Coded Allergies: Sulfa (Sulfonamide Antibiotics) (Unverified Allergy, Unknown, UNKNOWN, 03/28) EHR Conversion amoxicillin (Unverified Allergy, Unknown, UNKNOWN, 10/18/17) EHR Conversion Penicillins (Verified Adverse Reaction, Intermediate, SEVERE DIARRHEA, 03/28) ? [facility] Home Meds Active Scripts Meclizine Hcl (MECLIZINE HCL) 25 Mg Tablet, 1 TAB PO BID for 30 Days, #60 TAB Prov:LUCÍA MEDINA MD 12/11/17 Levofloxacin 250 Mg Tab (LEVAQUIN 250 MG TAB) 250 Mg Tablet, 250 MG PO DAILY for 6 Days, #6 TAB Prov:DORIS NUÑEZ MD 11/24/17 Calcium Carbonate (CALCIUM ANTACID) 200 Mg Tab.chew, 1000 MG PO Q8H Y for HEARTBURN, #100 TAB.CHEW 1 Refill Prov:PRECIOUS KIM MD 11/19/17 Acyclovir (ACYCLOVIR) 200 Mg Capsule, 400 MG PO BID, #60 CAPSULE 1 Refill Prov:PRECIOUS KIM MD 11/19/17 Allopurinol (ZYLOPRIM 300 MG TAB (OR EQUIV)) 300 Mg Tab, 300 MG PO QDAY, #30 TAB 1 Refill Prov:PRECIOUS KIM MD 11/19/17 Oxycodone Hcl/Acetaminophen (PERCOCET 5-325 MG TABLET) 1 Each Tablet, 1 EACH PO Q6H Y for PAIN for 30 Days, TAB Prov:PRECIOUS KIM MD 11/19/17 Bisacodyl (DULCOLAX) 10 Mg Supp.rect, 10 MG RC DAILY Y for constipation for 30 Days, #10 SUPP.RECT Prov:LUCÍA MEDINA MD 10/23/17 Reported Medications Triamcinolone Acetonide 0.1% Cr 15 Gm Tube (TRIAMCINOLONE ACETONIDE 0.1% CREAM) 15 Gm Cream..g., 60 GM TP BID Y for ITCHING, TUBE 12/18/17 Lorazepam (ATIVAN) 0.5 Mg Tablet, 0.5 MG PO Q4-6H Y for NAUSEA/VOMITING Take 1 to 2 tablets PRN anxiety/nausea/vomiting 11/21/17 Prochlorperazine Maleate (Compazine) 10 Mg Tablet, 10 MG PO Q6H Y for NAUSEA/ VOMITING 11/21/17 Ondansetron (ZOFRAN ODT) 4 Mg Tab.rapdis, 8 MG PO Q8H Y for NAUSEA, TAB.CARLOS 11/21/17 Atorvastatin Calcium (LIPITOR) 20 Mg Tablet, 1 TAB PO QHS, TAB 11/16/17 Estrogens, Conjugated (PREMARIN) 0.9 Mg Tablet, 0.9 MG PO 3XW 11/16/17 Glucosamine Sulfate 2KCL (GLUCOSAMINE SULFATE) 1,000 Mg Tablet, 1 TAB PO BID 10/08/17 Review of Systems Constitution: Positive for Appetite/Weight Change (Signficant weight loss), Positive for Recent Infection, Positive for Other HEENT: No EARS: Tinnitus, No NOSE: Nasal Discharge, No THROAT: Sore Throat, No EYES: Dipolpia, No EARS: Hearing Problems, No NOSE: Epistaxis, No THROAT: Mouth Ulcers, No EYES: Vision Change, No OTHER Respiratory: No Cough, No Expectoration, No Hemoptysis, No Shortness of Breath , No OTHER Cardiovascular: No Chest Pain, No Orthopnea, No Edema, No Palpitations, No OTHER Gastrointestinal: No Nausea, No Vomitting, Diarrehea (loose bowels. o1-2 times per day), No Constipation, No Heart Burn, No Swallowing Difficulties, No Abdominal Pain, Other Gentiourinary: Dysuria, No Nocturia, Other (frequency, burning with urination) Musculoskeletal: No Muscle Pain, No Joint Pain, No Bone Pain, No Other Hematological: Weakness (mildly improving), Fatigue Skin: No Lumps, No Erythema, No Moist Skin, Other Psychiatric: Anxiety, Other (frustrated) Vital Signs Vital Signs Temperature: 97.4 Pulse: 100 BP Systolic: 100 BP Diastolic: 52 Respiratory Rate: 16 O2 SAT: 96 O2 Delivery: Height (feet) Height (inches) 62.50 Weight lb: 115 Weight oz: 2.0 Weight Kg (Omi): Pain: 0 ECOG-2 Physical Exam General: Other (emaciated, ill looking) HEENT: No HEAD:Atraumatic, No EYES: Conjuctivitis, No EYES: Icterus, No MOUTH: Mucocitis, No MOUTH: Oral Thrush, No SINUS: Tenderness to Palpation, No Other Neck: Supple Lungs: Clear to Auscultation, Other (Diminished) Heart: Regular Rate and Rhythm Abdomen: Soft and Nontender, Hepatosplenomegaly Extremities: No Cyanosis, No Clubbing, No Edema, No Other Lymphatics: No Peripheral Lymphadenopathy, No Other Psychiatric: Mood appears normal, Affect appears normal, Other (Frustrated) Skin: No Skin Rashes, No Bruising, No Purpura, No Moist Desquamation, No Dry Desquamation, No Errythema, No Mild Errythema, No Moderate Errythema, No Severe Errythema, No Induration, Other (mild dryness) Breast: No No Masses, No No Nipple Discharge, No No Skin Changes, No Other Assessment and Plan Assessment and Plan Mrs. Luis M Davis is a 72 year old woman who has Mantle cell lymphoma stage IV Dx: 10/2017 revealed by Bone marrow aspiration biopsy. Being treated with Rituximab and Bendamustine since November 14, 2017 (patient has received 2 cycles to date, due to side effects toxicities). Patient is seen at the infusion center for evaluation of treatment and disease management. by her side. She is hemodynamically stable. On Physical exam, she is emaciated, patient reports UTI symptoms have resolved. off note, her hearing aids needed to be redone by next year. Both patient and are heard of hearing. DIAGNOSTIC DATA. Reviewed on [facility]. 1. Mantle cell lymphoma stage IV Dx: 10/2017 revealed by Bone marrow aspiration biopsy. Being treated with Rituximab and Bendamustine since November 14, 2017 ( patient has received 2 cycles to date, due to side effects toxicities). - Nutrition deficit and significant weight loss. Patient was seen by [employer]er on 01/11/2018. I encouraged patient to increase Po intake. Skin Itchiness. Resolved with topical emollient. triamcinolone/vanicream, and atarax. Benadryl 25 mg PO. and topical Benadryl rx to use PRN. and to use lotion , emollients PRN. - Chemotherapy Induced Weakness: mildly improving. neuro exam with negative findings, patient is AAOX3, no changes in mental status, ambulating with a walker - Fall precautions safety teaching reinforced to patient and -Smoking cessation: teaching reinforced and rationale for smoking cessation reinforced -. Chemo induced nausea .resolved. patient instructed continue to take antiemetic as instructed and east 30-45minutes before meals. - Constipation, continue to take stool softeners and Patient was also instructed to increase fluid intake -UTI- resolved. treated empirically- levofloxacin 250mg PO DailyX7 days - Electrolyte imbalance. will continue to monitor and replete s clinically indicated. PLAN #1 proceed with Rituximab and Bendamustine cycle#3 today 01/21/2018. #2 Continue taking mag oxide 250-400mg PO daily. K+ supplement as prescribed. #3 patient to continue taking one tablet of Senokot daily at bedtime for constipation #4 Patient to continue with nutrition regimen, and incorporate more solids to meal. #5 Chemo dose reduction dose adjusted currently to [id number].as of today #6 Patient will receive Neulasta next day after chemo. Will initiate abx ppfx. for Neutropenia if necessary on days 5-14. #7 Patient to call clinic with any concerns, and to go to Er with any fevers, chest pain, SOB, bleeding -Education, patient instructed to go to ER immediately and or call Clinic if any Shortness of Breath, Temp >/=100.4, fevers, chills, cardiac type chest pain , bleeding, excessive bruising, headaches, blurry vision, dizziness, abdominal pain, difficulty swallowing, and pain unrelieved by prescribed medication. TIME SPENT: 20 minutes 15> minutes includes but not limited to discussion, counselling and co-ordination~ of care. Discussion with other health care providers, record review, review of lab work, diagnostic tests. Plan discussed extensively with patient. All the questions answered today. Thank you for the opportunity to be involved in the care of Susan Asencio. Billing Level: Return visit 3 ANDRAE GREEN, ONC Jan 21, 2018 12:03
[2018-01-21] MEDS: HEPARIN FLSH (PORT) 500 UN/5ML IVP PRN (14:12)
[~2018-01-22] VITALS: Ht 158.8 cm; Wt 49.8 kg
[~2018-01-22 13:00] MED LIST changes: +ALTEPLASE RECOMB 2 MG VIAL IVP PRN; +BENDAMUSTINE HCL IVPB ONE; +CEFEPIME HCL 2 GM VIAL 2 GM in NS(*) 0.9% 100 ML BAG 100 ML IVPB ONE; +DEXTROSE 5%(*) 100 ML BAG 100 ML IVPB PRN; +FILGRASTIM 300 MCG/ML VIAL SC PRN; +KCL/NS* 20 MEQ/1000 ML PREMIX 1,000 ML IV ONE; +NS 0.9% IVPB ONE; +NS(*) 0.9% 100 ML BAG 100 ML IVPB PRN; +NS(*) 0.9% 1000 ML BAG 1,000 ML IV PRN; +PEGFILGRASTIM 6 MG/0.6 ML SYR SUBQ ONE; +RITUXIMAB IV ONE; +TRIA15CR40 TP; +WATER FOR INJ,STERILE 20 ML IVP PRN; +[UNRECOGNIZED DRUG - OTHER] IV ONE
[2018-01-22] MEDS ORDERED: PEGFILGRASTIM 6 MG/0.6 ML SYR SUBQ ONE (13:45)
[2018-01-22 14:45] VITALS: BP 88/53
== END 2018-01-23 ==
LOC: SPU 13:00
PROVIDERS: ATTEND Internal Medicine Hematology
DX: Z51.11 Encounter for antineoplastic chemotherapy (principal); C83.13 Mantle cell lymphoma, intra-abdominal lymph nodes; C85.97 Non-Hodgkin lymphoma, unspecified, spleen; I10 Essential (primary) hypertension; E78.5 Hyperlipidemia, unspecified; F17.210 Nicotine dependence, cigarettes, uncomplicated; Z79.899 Other long term (current) drug therapy; K59.00 Constipation, unspecified; R16.1 Splenomegaly, not elsewhere classified; R53.1 Weakness; D70.2 Other drug-induced agranulocytosis; R50.81 Fever presenting with conditions classified elsewhere; B96.89 Other specified bacterial agents as the cause of diseases classified elsewhere; N39.0 Urinary tract infection, site not specified; R63.4 Abnormal weight loss
CPT/HCPCS: 36415; 36591; 81001; 83615; 83735; 84100; 84550; 85025; 85027; 86704; 87040; 87077; 87088; 87186; 87340; 96360; 96361; 96365; 96367; 96372; 96375; 96413; 96415; 96417; A9270; G0463; G0472; J1100; J1200; J1442; J1642; J2469; J2505; J3480; J7030; J7040; J7050; J9034; J9310; 82040; 82247; 82310; 82374; 82435; 82565; 82947; 84075; 84132; 84155; 84295; 84450; 84460; 84520; 86803; 99202; 99212

== ENCOUNTER → 2018-04-25 | Outpatient (RCR) | payer MEDICARE ==
[2017-11-23 20:31] VITALS: Ht 158.8 cm; Wt 51.4 kg
[2018-01-28 11:09] VITALS: BP 101/65
[2018-01-28 11:33] LABS: PLATELET COUNT, AUTOMATED 180 K/uL (150-450)
[2018-01-28] MEDS: HEPARIN FLSH (PORT) 500 UN/5ML IVP PRN (13:28)
[2018-02-04 11:02] VITALS: BP 98/40
[2018-02-04 11:25] LABS: PLATELET COUNT, AUTOMATED 138 K/uL (150-450)
--- NOTE | 2018-02-04 17:04 | Medical Nutrition Therapy ---
Nutritional Education Nutrition Education Topic: Other (increasing po intake ) Learning Readiness: Interested Teaching Methods: Discussion Response to Teaching: Verbalize understanding Teaching Recipient: Patient, Significant Other Nutrition Counseling: Susan is currently eating very little and only at breakfast and dinner. We discussed ways to increase calories with every bite and eating small meals every 2-3 hours. Nutrition Monitoring & Eval Nutrition Goals: Eat 75-100% Meal, Drink > 1500 cc/day Nutritional Goals Comment: increase po intake, no further weight loss, eat small meals every 2-3 hours Nutrition Follow-Up: Poor Intake Nutrition Monitoring: I will follow up with Susan next week RD Patient Assessment Time: [address] Assessment Type: RD Education Patient Nutrition Acuity: 1-High Nutritional Comment: I encouraged Susan to call, email or let RN know if she would like to discuss any nutrition issues. AMY SERNA RDN, RICHARD Feb 04, 2018 17:04
[2018-02-12 09:42] LABS: PLATELET COUNT, AUTOMATED 164 K/uL (150-450)
[2018-02-12] MEDS: HEPARIN FLSH (PORT) 500 UN/5ML IVP PRN (09:52)
--- NOTE | 2018-02-12 09:53 | Medical Nutrition Therapy ---
Nutrition Monitoring & Eval Nutrition Follow-Up: Fair Intake Nutrition Monitoring: Susan states she is eating more quantity and more frequently over the past few days. Her appetite and GI symptoms have improved RD Patient Assessment Time: 15 minutes (brief visit to check on PO intake, < 5min ) Patient Nutrition Acuity: 1-High Nutritional Comment: I encouraged Susan to continue eating small meals every few hours. I'll continue to monitor AMY SERNA RDN, RICHARD Feb 12, 2018 09:53
[2018-02-15 09:07] VITALS: BP 82/64
[2018-02-15] MEDS: HEPARIN FLSH (PORT) 500 UN/5ML IVP PRN (10:59)
[2018-02-15 11:02] VITALS: BP 110/44
--- NOTE | 2018-02-15 16:32 | ONCOLOGY FOLLOW UP NOTE ---
EVENT DATE: February 15, 2018 DIAGNOSES 1. Stage IV mantel cell lymphoma. 2. Hypertension. 3. Hyperlipidemia. CHIEF COMPLAINT Patient is here today for followup of her stage IV mantle cell lymphoma. ONCOLOGY HISTORY Patient is a 72-year-old female who presented to the emergency department at [facility] in [place], [place] with left-sided abdominal pain on and off for the last few months. During her evaluation the patient was found to have lymphocytosis with 71% lymphocytes, 20% neutrophils and fullness in the left upper quadrant due to splenomegaly suspicious for lymphoma, so the patient had a CT chest, abdomen and pelvis done on October 18, 2017 which showed bulky mediastinal and bilateral hilar adenopathy, in addition to massive retroperitoneal mesenteric adenopathy and periportal adenopathy. Massive splenomegaly was also noted. There was a mass effect on the mid splenic vein by the lymph node mass. There was extensive honeycombing in the right lower lobe adjacent irregular cavitary lesion likely chronic. There was also noted 5 mm subpleural noncalcified nodule in the right lower lobe. 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 Patient had a PET CT scan done on November 08, 2017 which showed lymphadenopathy above and below the diaphragm. She had marked splenomegaly, hilar adenopathy, mediastinal adenopathy, left internal mammary lymph node activity, gastrohepatic in the periportal region. Retropleural adenopathy along the aorta. Periaortic activity down through the abdomen to the bifurcation. Bone marrow aspiration biopsy done on October 29, 2017 was positive for mantel cell lymphoma. The BCL1 and SOX11 were positive. Flow cytometry was positive for CD5 monoclonal B-cell population. FISH was positive for variant translocation 11;14. Patient started chemotherapy with rituximab and bendamustine on November 14, 2017. HISTORY OF PRESENT ILLNESS Patient is here today for her cycle number four of rituximab and bendamustine for her stage IV mantle cell lymphoma. She is working with a dietitian currently with some improvement in her appetite. She has a runny nose and a dry cough. She has nausea after her chemo and diarrhea. She is weak, tired and fatigued. She developed itching after her last cycle of chemotherapy for only one day, which resolved by itself. PAST MEDICAL HISTORY 1. Trigeminal neuralgia. 2. Hypertension. 3. Hyperlipidemia. 4. GERD. PAST SURGICAL HISTORY 1. Tonsillectomy. 2. Surgery for trigeminal neuralgia. 3. Appendectomy. 4. Hysterectomy. 5. Cochlear implant surgery. 6. Surgery for left ankle fracture. FAMILY HISTORY Mother had lung cancer. SOCIAL HISTORY Patient is with no children. She is a homemaker. She smoked one and a half packs a day for 50 years. She drinks wine and beer two to three a day for a long time. Denies any abuse of illicit drugs. CURRENT MEDICATIONS 1. Percocet 5/325 mg tablet q.6 hourly p.r.n. for pain. 2. Benazepril hydrochloride 10 mg daily. 3. Amlodipine 5 mg daily. 4. Glucosamine sulfate 1000 mg tablet twice daily. 5. Premarin 0.9 mg tablet daily. 6. Lipitor 20 mg daily. 7. Calcium with vitamin D one tablet daily. ALLERGIES 1. PENICILLIN DERIVATIVES. 2. AMOXICILLIN which caused diarrhea. 3. SULFA, which does not know the reaction. REVIEW OF SYSTEMS CONSTITUTIONAL: The patient has loss of appetite and loss of weight. No fever, chills or sweating. No recent infection. HEENT: Ears: No tinnitus or hearing problem. Nose: The patient has nasal discharge. No epistaxis. Throat: No sore throat or mouth ulcers. Eyes: No diplopia or visual changes. RESPIRATORY: No shortness of breath. She has dry cough. No expectoration or hemoptysis. CARDIOVASCULAR: No chest pain, orthopnea, or paroxysmal nocturnal dyspnea (PND). No edema. No palpitations. GASTROINTESTINAL: She has nausea and diarrhea. GENITOURINARY: No hematuria or dysuria. MUSCULOSKELETAL: No pain in the muscles, joints or bones. NEUROLOGICAL: No tingling or numbness in the hands or feet. No headaches or convulsions. HEMATOLOGIC/LYMPHATIC: No bleeding or easy bruising. She is weak, tired and fatigued. No enlarged lymph nodes. SKIN: No skin rash or lumps. She had skin itching for one day after her last chemotherapy. PSYCHIATRIC: No anxiety or depression. PHYSICAL EXAMINATION GENERAL: Looks stable. Well-developed, well-nourished, and in no acute distress. VITAL SIGNS: Blood pressure 82/64, pulse 122 per minute, respirations 16 per minute, temperature 96.8, pulse ox 95% on room air. HEENT: Head: Atraumatic. No sinus tenderness to palpation. Eyes: No icterus or conjunctivitis. Mouth and Throat: No oral thrush or mucositis. NECK: Supple. No cervical or supraclavicular lymphadenopathy. LUNGS: Clear to auscultation and percussion bilaterally. HEART: Regular rate and rhythm. No gallops, murmurs, clicks or rubs. ABDOMEN: Soft and lax. No tenderness. No hepatosplenomegaly. No masses. EXTREMITIES: No cyanosis, clubbing or edema. LYMPHATICS: No peripheral lymphadenopathy. NEUROLOGICAL: Conscious, alert and oriented times three. No focal motor or sensory deficits. PSYCHIATRIC: Mood and affect appear normal. SKIN: No skin rash, bruise or purpuric eruption. DIAGNOSTIC DATA CBC showed white count 9.9, hemoglobin 13.6, hematocrit 40, platelets 164,000. Chem panel totally normal except total protein 5.5 and albumin 3.1. ASSESSMENT 1. Stage IV mantle cell lymphoma with CD5 positive, B-cell lymphoproliferative disorder, phenotypically consistent with mantle cell lymphoma by flow cytometry of the peripheral blood done on October 18, 2017. CT chest, abdomen and pelvis on the October 18, 2017 did reveal bulky mediastinal, bilateral hilar, in addition to massive retroperitoneal mesenteric adenopathy and peripheral adenopathy. There was also massive splenomegaly. Those results are confirmed by the PET scan done on November 08, 2017. Bone marrow aspiration biopsy done October 29, 2017 came back positive for mantle cell lymphoma. BCL1 and SOX11 were positive. FISH was positive for variant translocation 11;14. Patient started treatment with rituximab and bendamustine November 14, 2017. She received three cycles so far and she is due for her fourth cycle on February 18, 2018. She has some nausea and loose stools from her chemotherapy. She is working with a dietitian currently for the weight loss with some improvement in her appetite and calorie intake. I am planning to proceed with her fourth cycle at this time. I will see her in four weeks with CBC, chem panel, LDH, uric acid, and I will check CBC and chem panel and uric acid on a weekly. I am planning after the sixth cycle to repeat her scans to decide about further management. 2. Loss of appetite and weight, is getting better. Patient is followed by a form tamper currently. 3. Hypertension, on treatment. 4. Hyperlipidemia, on treatment. 5. Hypotension, could be dehydrated. I am planning to infuse 1 L of normal saline today. PLAN 1. Rituximab, bendamustine. This will be cycle number four as per schedule. 2. CBC, chem panel, uric acid to be checked weekly. 3. Neulasta 6 mg after each cycle of chemotherapy. 4. Patient to return in four weeks with CBC, chem panel, LDH, uric acid. 5. Patient to contact us for any new concerns or complaints. MTDD
[2018-02-18 10:14] VITALS: BP 111/76
[2018-02-18] MEDS: ACETAMINOPHEN 325 MG TAB PO PRN (10:47)
[2018-02-18] MEDS: DEXAMETHASONE SOD PHOS 10MG/ML IVP PRN (10:48)
[2018-02-18] MEDS: PALONOSETRON 0.25 MG/5 ML VIAL IVP PRN (10:49)
[2018-02-18] MEDS: NS(*) 0.9% 500 ML BAG 500 ML IV PRN (10:50)
[2018-02-18] MEDS: HEPARIN FLSH (PORT) 500 UN/5ML IVP PRN (15:38)
[2018-02-19 14:35] VITALS: BP 110/57
[2018-02-25 10:31] VITALS: BP 121/49
[2018-02-25] MEDS: HEPARIN FLSH (PORT) 500 UN/5ML IVP PRN (10:40)
[2018-02-25 10:50] LABS: PLATELET COUNT, AUTOMATED 187 K/uL (150-450)
[2018-03-04 11:24] LABS: PLATELET COUNT, AUTOMATED 180 K/uL (150-450)
[2018-03-04 11:34] VITALS: BP 112/66
[2018-03-11 10:40] VITALS: BP 102/61
[2018-03-11 10:53] LABS: PLATELET COUNT, AUTOMATED 167 K/uL (150-450)
[2018-03-11] MEDS: HEPARIN FLSH (PORT) 500 UN/5ML IVP PRN (10:55)
[2018-03-18 10:31] VITALS: BP 101/53
[2018-03-18] MEDS: PALONOSETRON 0.25 MG/5 ML VIAL IVP PRN (11:17)
[2018-03-18] MEDS: DEXAMETHASONE SOD PHOS 10MG/ML IVP PRN (11:17)
[2018-03-18] MEDS: ACETAMINOPHEN 325 MG TAB PO PRN (11:17)
[2018-03-18] MEDS: diphenhydrAMINE 25 MG CAP PO PRN (11:18)
[2018-03-18] MEDS: HEPARIN FLSH (PORT) 500 UN/5ML IVP PRN (14:18)
[2018-03-25 10:26] VITALS: BP 101/50
[2018-03-25 10:44] LABS: PLATELET COUNT, AUTOMATED 157 K/uL (150-450)
[2018-03-25] MEDS: HEPARIN FLSH (PORT) 500 UN/5ML IVP PRN (11:05)
[2018-04-01] MEDS: HEPARIN FLSH (PORT) 500 UN/5ML IVP PRN (10:15)
[2018-04-01 10:34] LABS: PLATELET COUNT, AUTOMATED 157 K/uL (150-450)
[2018-04-05 12:36] VITALS: BP 93/49
--- NOTE | 2018-04-05 14:28 | RADIOLOGY IMAGING REPORT ---
FACILITY: [facility] [place] PATIENT NAME: Suasn Asencio : 1945 MR: [id number] V: [id number] EXAM DATE: [id number] ORDERING PHYSICIAN: IESHA APODACA TECHNOLOGIST: Location: [facility] Patient: Susan Asencio : 1945 Visit/Account:[id number] Date of Sevice: 04/05/2018 Exam type: CHEST PA AND LAT History: Cold, chronic cough Comparison: November 23, 2017. Findings: There is no evidence of focal infiltrates, pleural effusions or overt pulmonary edema. There is mild chronic peribronchial thickening in the right lung base similar to the prior study Cardiac silhouet te is normal in size. No evidence of a pneumothorax or pneumomediastinum. The right IJ port is note d with distal tip projecting over the superior vena cava IMPRESSION: 1. No acute cardiopulmonary process seen Report Dictated By: Yesenia Hernandez MD at 04/05/2018 2:22 PM Report E-Signed By: Yesenia Hernandez MD at 04/05/2018 2:24 PM WSN:[id number]
--- NOTE | 2018-04-05 22:04 | ONCOLOGY FOLLOW UP NOTE ---
EVENT DATE: April 05, 2018 DIAGNOSES 1. Stage IV mantel cell lymphoma. 2. Hypertension. 3. Hyperlipidemia. CHIEF COMPLAINT Patient is here today for followup of her stage IV mantle cell lymphoma. ONCOLOGY HISTORY Patient is a 73-year-old female who presented to the Emergency Department at [facility] in [place], [place], with left-sided abdominal pain on and off for the last few months. During her evaluation, the patient was found to have lymphocytosis with 71% lymphocytes, 20% neutrophils, and fullness in the left upper quadrant due to splenomegaly suspicious for lymphoma, so the patient had a CT chest, abdomen, and pelvis done on October 18, 2017, which showed bulky mediastinal and bilateral hilar adenopathy in addition to massive retroperitoneal mesenteric adenopathy and periportal adenopathy. Massive splenomegaly was also noted. There was a mass effect on the mid splenic vein by the lymph node mass. There was extensive honeycombing in the right lower lobe with adjacent irregular cavitary lesion, likely chronic. There was also noted a 5 mm subpleural noncalcified nodule in the right lower lobe. I received a call from the ER physician that day about the findings, and I advised to do flow cytometry of the leukemia lymphoma panel, which was done on October 18, 2017. The diagnosis came back positive for CD5 positive B-cell lymphoproliferative disorder with phenotype features most consistent with mantle cell lymphoma, although an unusual chronic lymphocytic leukemia or small lymphocytic lymphoma could not be completely excluded. Patient had a PET/CT scan done on November 08, 2017, which showed lymphadenopathy above and below the diaphragm. She had marked splenomegaly, hilar adenopathy, mediastinal adenopathy, left internal mammary lymph node activity, gastrohepatic in the periportal region, retropleural adenopathy along the aorta, and periaortic activity down through the abdomen to the bifurcation. Bone marrow aspiration biopsy done on October 29, 2017, was positive for mantel cell lymphoma. The BCL1 and SOX11 were positive. Flow cytometry was positive for CD5 monoclonal B-cell population. FISH was positive for variant translocation 11;14. Patient started chemotherapy with rituximab and bendamustine on November 14, 2017. HISTORY OF PRESENT ILLNESS Patient is here today for her cycle number six of rituximab and bendamustine for stage IV mantle cell lymphoma. She is doing fine currently except for having cough with expectoration for about two months now associated with pain in her temporomandibular joint when she coughs. She is also weak, tired, and fatigued most of the time. PAST MEDICAL HISTORY 1. Trigeminal neuralgia. 2. Hypertension. 3. Hyperlipidemia. 4. GERD. PAST SURGICAL HISTORY 1. Tonsillectomy. 2. Surgery for trigeminal neuralgia. 3. Appendectomy. 4. Hysterectomy. 5. Cochlear implant surgery. 6. Surgery for left ankle fracture. FAMILY HISTORY Mother had lung cancer. SOCIAL HISTORY Patient is with no children. She is a homemaker. She smoked one and a half packs a day for 50 years. She drinks wine and beer two to three a day for a long time. Denies any abuse of illicit drugs. CURRENT MEDICATIONS 1. Percocet 5/325 mg tablet q.6 hours p.r.n. for pain. 2. Benazepril hydrochloride 10 mg daily. 3. Amlodipine 5 mg daily. 4. Glucosamine sulfate 1000 mg tablet twice daily. 5. Premarin 0.9 mg tablet daily. 6. Lipitor 20 mg daily. 7. Calcium with vitamin D one tablet daily. ALLERGIES 1. PENICILLIN DERIVATIVES. 2. AMOXICILLIN which caused diarrhea. 3. SULFA, which she does not know the reaction. REVIEW OF SYSTEMS CONSTITUTIONAL: The patient has loss of appetite and loss of weight. No fever, chills, or sweating. No recent infection. HEENT: Ears: No tinnitus or hearing problem. Nose: The patient has nasal discharge. No epistaxis. Throat: No sore throat or mouth ulcers. Eyes: No diplopia or visual changes. RESPIRATORY: No shortness of breath. She has cough with expectoration for about two months now. No hemoptysis. CARDIOVASCULAR: No chest pain, orthopnea, or paroxysmal nocturnal dyspnea (PND). No edema. No palpitations. GASTROINTESTINAL: She has nausea and diarrhea. GENITOURINARY: No hematuria or dysuria. MUSCULOSKELETAL: No pain in the muscles, joints, or bones. NEUROLOGICAL: No tingling or numbness in the hands or feet. No headaches or convulsions. HEMATOLOGIC/LYMPHATIC: No bleeding or easy bruising. She is weak, tired, and fatigued. No enlarged lymph nodes. SKIN: No skin rash or lumps. She had skin itching for one day after her last chemotherapy. PSYCHIATRIC: No anxiety or depression. PHYSICAL EXAMINATION GENERAL: Looks stable. Well developed, well nourished, and in no acute distress. VITAL SIGNS: Blood pressure 93/49, pulse 68 per minute, respirations 16 per minute, temperature 96.6, pulse ox 92% on room air. HEENT: Head: Atraumatic. No sinus tenderness to palpation. Eyes: No icterus or conjunctivitis. Mouth and Throat: No oral thrush or mucositis. NECK: Supple. No cervical or supraclavicular lymphadenopathy. LUNGS: Clear to auscultation and percussion bilaterally. HEART: Regular rate and rhythm. No gallops, murmurs, clicks, or rubs. ABDOMEN: Soft and lax. No tenderness. No hepatosplenomegaly. No masses. EXTREMITIES: No cyanosis, clubbing, or edema. LYMPHATICS: No peripheral lymphadenopathy. NEUROLOGICAL: Conscious, alert, and oriented times three. No focal motor or sensory deficits. PSYCHIATRIC: Mood and affect appear normal. SKIN: No skin rash, bruise, or purpuric eruption. DIAGNOSTIC DATA CBC showed white count 13, hemoglobin 13.4, hematocrit 40.3, platelets 157,000. Chem panel totally normal except blood sugar 111, total protein 5.9, albumin 3.4. Other parameters are normal. ASSESSMENT 1. Stage IV mantle cell lymphoma with CD5 positive B-cell lymphoproliferative disorder, phenotypically consistent with mantle cell lymphoma by flow cytometry of the peripheral blood done October 18, 2017. CT chest, abdomen, and pelvis on the October 18, 2017, did reveal bulky mediastinal, bilateral hilar, in addition to massive retroperitoneal mesenteric adenopathy and peripheral adenopathy. DICTATION ENDS HERE. MTDD
--- NOTE | 2018-04-05 22:26 | ONCOLOGY FOLLOW UP NOTE ---
EVENT DATE: April 05, 2018 DIAGNOSES 1. Stage IV mantel cell lymphoma. 2. Hypertension. 3. Hyperlipidemia. CHIEF COMPLAINT Patient here today for followup of her stage IV mantle cell lymphoma. ONCOLOGY HISTORY Patient is a 73-year-old female who presented to the Emergency Department at [facility] in [place], [place], with left-sided abdominal pain on and off for the last few months. During her evaluation, the patient was found to have lymphocytosis with 71% lymphocytes, 20% neutrophils, and fullness in the left upper quadrant due to splenomegaly suspicious for lymphoma, so the patient had a CT chest, abdomen, and pelvis done on October 18, 2017, which showed bulky mediastinal and bilateral hilar adenopathy in addition to massive retroperitoneal mesenteric adenopathy and periportal adenopathy. Massive splenomegaly was also noted. There was a mass effect on the mid splenic vein by the lymph node mass. There was extensive honeycombing in the right lower lobe adjacent irregular cavitary lesion, likely chronic. There was also noted a 5 mm subpleural noncalcified nodule in the right lower lobe. I received a call from the ER physician that day about the findings, and I advised to do flow cytometry of the leukemia lymphoma panel, which was done on October 18, 2017. The diagnosis came back positive for CD5-positive B-cell lymphoproliferative disorder with phenotype features most consistent with mantle cell lymphoma, although an unusual chronic lymphocytic leukemia or small lymphocytic lymphoma cannot be completely excluded. Patient had a PET/CT scan done on November 08, 2017, which showed lymphadenopathy above and below the diaphragm. She had marked splenomegaly, hilar adenopathy, mediastinal adenopathy, left internal mammary lymph node activity, gastrohepatic in the periportal region, retropleural adenopathy along the aorta, and periaortic activity down through the abdomen to the bifurcation. Bone marrow aspiration biopsy done on October 29, 2017, was positive for mantel cell lymphoma. BCL1 and SOX11 were positive. Flow cytometry was positive for CD5 monoclonal B-cell population. FISH was positive for variant translocation 11;14. Patient started chemotherapy with rituximab and bendamustine on November 14, 2017. HISTORY OF PRESENT ILLNESS Patient is here today for her cycle number six of rituximab and bendamustine for her stage IV mantle cell lymphoma. She is doing fine currently except for having cough with expectoration for about two months associated with pain at her right temporomandibular joint. She is also weak, tired, and fatigued. PAST MEDICAL HISTORY 1. Trigeminal neuralgia. 2. Hypertension. 3. Hyperlipidemia. 4. GERD. PAST SURGICAL HISTORY 1. Tonsillectomy. 2. Surgery for trigeminal neuralgia. 3. Appendectomy. 4. Hysterectomy. 5. Cochlear implant surgery. 6. Surgery for left ankle fracture. FAMILY HISTORY Mother had lung cancer. SOCIAL HISTORY Patient is with no children. She is a homemaker. She smoked one and a half packs a day for 50 years. She drinks wine and beer two to three a day for a long time. Denies any abuse of illicit drugs. CURRENT MEDICATIONS 1. Percocet 5/325 mg tablet q.6 hours p.r.n. for pain. 2. Benazepril hydrochloride 10 mg daily. 3. Amlodipine 5 mg daily. 4. Glucosamine sulfate 1000 mg tablet twice daily. 5. Premarin 0.9 mg tablet daily. 6. Lipitor 20 mg daily. 7. Calcium with vitamin D one tablet daily. ALLERGIES 1. PENICILLIN DERIVATIVES. 2. AMOXICILLIN which caused diarrhea. 3. SULFA, which she does not know the reaction. REVIEW OF SYSTEMS CONSTITUTIONAL: The patient has loss of appetite and loss of weight. No fever, chills, or sweating. No recent infection. HEENT: Ears: No tinnitus or hearing problem. Nose: The patient has nasal discharge. No epistaxis. Throat: No sore throat or mouth ulcers. Eyes: No diplopia or visual changes. RESPIRATORY: No shortness of breath. Patient has cough with expectoration for about two months now. No hemoptysis. CARDIOVASCULAR: No chest pain, orthopnea, or paroxysmal nocturnal dyspnea (PND). No edema. No palpitations. GASTROINTESTINAL: She has nausea and diarrhea. GENITOURINARY: No hematuria or dysuria. MUSCULOSKELETAL: No pain in the muscles, joints, or bones. NEUROLOGICAL: No tingling or numbness in the hands or feet. No headaches or convulsions. HEMATOLOGIC/LYMPHATIC: No bleeding or easy bruising. She is weak, tired, and fatigued. No enlarged lymph nodes. SKIN: No skin rash or lumps. She had skin itching for one day after her last chemotherapy. PSYCHIATRIC: No anxiety or depression. PHYSICAL EXAMINATION GENERAL: Looks stable. Well developed, well nourished, and in no acute distress. VITAL SIGNS: Blood pressure 93/49, pulse 68 per minute, respirations 16 per minute, temperature 96.6, pulse ox 92% on room air. HEENT: Head: Atraumatic. No sinus tenderness to palpation. Eyes: No icterus or conjunctivitis. Mouth and Throat: No oral thrush or mucositis. NECK: Supple. No cervical or supraclavicular lymphadenopathy. LUNGS: Clear to auscultation and percussion bilaterally. HEART: Regular rate and rhythm. No gallops, murmurs, clicks, or rubs. ABDOMEN: Soft and lax. No tenderness. No hepatosplenomegaly. No masses. EXTREMITIES: No cyanosis, clubbing, or edema. LYMPHATICS: No peripheral lymphadenopathy. NEUROLOGICAL: Conscious, alert, and oriented times three. No focal motor or sensory deficits. PSYCHIATRIC: Mood and affect appear normal. SKIN: No skin rash, bruise, or purpuric eruption. DIAGNOSTIC DATA CBC showed white count 13,000, hemoglobin 13.4, hematocrit 40.3, platelets 157,000. Chem panel totally normal except for blood sugar 111, total protein 5.9, and albumin 3.4. Other parameters are normal. ASSESSMENT 1. Stage IV mantle cell lymphoma with CD5-positive B-cell lymphoproliferative disorder, phenotypically consistent with mantle cell lymphoma by flow cytometry of the peripheral blood done on October 18, 2017. CT chest, abdomen, and pelvis October 18, 2017, did reveal bulky mediastinal, bilateral hilar, in addition to massive retroperitoneal mesenteric adenopathy and massive splenomegaly. Those results are confirmed by PET/CT scan done on the October. Bone marrow aspiration biopsy done October 29, 2017, came back positive for mantle cell lymphoma. BCL1 and SOX11 were positive. FISH was positive for variant translocation 11;14. Patient started treatment with rituximab and bendamustine November 14, 2017. She finished five cycles so far, and I plan to proceed with her sixth cycle at this time. She is due for her next cycle of chemotherapy on the April. I am planning to see her in four weeks from now with CBC, chemistry panel, LDH, uric acid, and PET/CT scan for further evaluation. If the patient has a good response or complete remission, I am planning to start maintenance rituximab therapy every two months for two years. I explained that to the patient. She is agreeable with the plan of management. 2. Chronic cough for over two months with expectoration and pain in the temporomandibular joint on the right side with coughing. I am planning to get a chest x-ray for evaluation. 3. Hypertension, on treatment. 4. Hyperlipidemia, on treatment. PLAN 1. Rituximab and bendamustine. This will be cycle #6 as per schedule. 2. CBC and chem panel to be checked weekly. 3. Patient to return in four weeks with CBC, chem panel, LDH, uric acid, and PET/CT scan. 4. Neulasta 6 mg after each cycle of chemotherapy. 5. Chest x-ray PA and lateral views today. 6. Patient to contact us for any new concerns or complaints. MTDD
[2018-04-08 10:24] VITALS: BP 96/53
[2018-04-08 10:31] LABS: PLATELET COUNT, AUTOMATED 149 K/uL (150-450)
[2018-04-08] MEDS: HEPARIN FLSH (PORT) 500 UN/5ML IVP PRN (12:00)
[2018-04-15 10:13] VITALS: BP 111/45
[2018-04-15] MEDS: NS(*) 0.9% 500 ML BAG 500 ML IV PRN (10:20)
[2018-04-15] MEDS: ACETAMINOPHEN 325 MG TAB PO PRN (10:56)
[2018-04-15] MEDS: diphenhydrAMINE 25 MG CAP PO PRN (10:56)
[2018-04-15] MEDS: DEXAMETHASONE SOD PHOS 10MG/ML IVP PRN (10:59)
[2018-04-15] MEDS: PALONOSETRON 0.25 MG/5 ML VIAL IVP PRN (10:59)
[2018-04-15] MEDS: HEPARIN FLSH (PORT) 500 UN/5ML IVP PRN (15:07)
[2018-04-23] MEDS: HEPARIN FLSH (PORT) 500 UN/5ML IVP PRN (10:42)
[2018-04-23 10:43] VITALS: BP 107/84
[2018-04-23 10:43] LABS: PLATELET COUNT, AUTOMATED 166 K/uL (150-450)
[~2018-04-25] VITALS: Ht 158.8 cm; Wt 51.4 kg
[~2018-04-25] MED LIST changes: +AMLO-111 PO; -AMLO-96 PO; -CEFEPIME HCL 2 GM VIAL 2 GM in NS(*) 0.9% 100 ML BAG 100 ML IVPB ONE; -FILGRASTIM 300 MCG/ML VIAL SC PRN; +INFLUENZA VIRUS VAC 0.5ML SYR IM ONLY ONE; -KCL/NS* 20 MEQ/1000 ML PREMIX 1,000 ML IV ONE; +LIDOCAINE/SOD BICARB 8.4% SYR ID PRN; +NS(*) 0.9% 1000 ML BAG 1,000 ML IV ONE; -NS(*) 0.9% 1000 ML BAG 1,000 ML IV PRN; +PEGFILGRASTIM 6 MG/0.6 ML KIT SUBQ ONE; +diphenhydrAMINE 50 MG/ML VIAL IVP PRN
[2018-04-25 12:25] VITALS: BP 131/73
--- NOTE | 2018-04-26 04:37 | [facility] ONCOLOGY NOTE ---
EVENT DATE: April 25, 2018 DIAGNOSES 1. Stage IV mantle cell lymphoma. 2. Hypertension. 3. Hyperlipidemia. CHIEF COMPLAINT Patient is here today for followup of her stage IV mantle cell lymphoma. ONCOLOGY HISTORY Patient is a 73-year-old female who presented to the emergency department at [facility] in [place], [place], with left-sided abdominal pain on and off for the last few months. During her evaluation, the patient was found to have lymphocytosis with 71% lymphocytes, 20% neutrophils, and fullness in the left upper quadrant due to splenomegaly suspicious for lymphoma, so the patient had a CT chest, abdomen, and pelvis done on October 18, 2017, which showed bulky mediastinal and bilateral hilar adenopathy in addition to massive retroperitoneal mesenteric adenopathy and periportal adenopathy. Massive splenomegaly was also noted. There was a mass effect on the mid splenic vein by the lymph node mass. There was extensive honeycombing in the right lower lobe adjacent irregular cavitary lesion, likely chronic. There was also noted a 5 mm subpleural noncalcified nodule in the right lower lobe. I received a call from the ER physician that day about the findings, and I advised to do flow cytometry of the leukemia lymphoma panel, which was done on October 18, 2017. The diagnosis came back positive for CD5-positive B-cell lymphoproliferative disorder with phenotype features most consistent with mantle cell lymphoma, although an unusual chronic lymphocytic leukemia or small lymphocytic lymphoma cannot be completely excluded. Patient had a PET/CT scan done on November 08, 2017, which showed lymphadenopathy above and below the diaphragm. She had marked splenomegaly, hilar adenopathy, mediastinal adenopathy, left internal mammary lymph node activity, gastrohepatic in the periportal region, retropleural adenopathy along the aorta, and periaortic activity down through the abdomen to the bifurcation. Bone marrow aspiration biopsy done on October 29, 2017, was positive for mantel cell lymphoma. BCL1 and SOX11 were positive. Flow cytometry was positive for CD5 monoclonal B-cell population. FISH was positive for variant translocation 11;14. Patient started chemotherapy with rituximab and bendamustine on November 14, 2017. HISTORY OF PRESENT ILLNESS Patient is here today for cycle #7 of rituximab and bendamustine for her stage IV mantle cell lymphoma. Patient is doing fine currently except for some nasal discharge and dry cough. She has occasional headache. She is weak, tired, and fatigued. PAST MEDICAL HISTORY 1. Trigeminal neuralgia. 2. Hypertension. 3. Hyperlipidemia. 4. GERD. PAST SURGICAL HISTORY 1. Tonsillectomy. 2. Surgery for trigeminal neuralgia. 3. Appendectomy. 4. Hysterectomy. 5. Cochlear implant surgery. 6. Surgery for left ankle fracture. FAMILY HISTORY Mother had lung cancer. SOCIAL HISTORY Patient is with no children. She is a homemaker. She smoked one and a half packs a day for 50 years. She drinks wine and beer two to three a day for a long time. Denies any abuse of illicit drugs. CURRENT MEDICATIONS 1. Percocet 5/325 mg tablet q.6 hours p.r.n. for pain. 2. Benazepril hydrochloride 10 mg daily. 3. Amlodipine 5 mg daily. 4. Glucosamine sulfate 1000 mg tablet twice daily. 5. Premarin 0.9 mg tablet daily. 6. Lipitor 20 mg daily. 7. Calcium with vitamin D one tablet daily. ALLERGIES 1. PENICILLIN DERIVATIVES. 2. AMOXICILLIN which caused diarrhea. 3. SULFA, which she does not know the reaction. REVIEW OF SYSTEMS CONSTITUTIONAL: No appetite or weight change. No fever, chills or sweating. No recent infection. HEENT: Ears: No tinnitus or hearing problem. Nose: She has nasal discharge. Throat: No sore throat or mouth ulcers. Eyes: No diplopia or visual changes. RESPIRATORY: She has dry cough. CARDIOVASCULAR: No chest pain, orthopnea, or paroxysmal nocturnal dyspnea (PND). No edema. No palpitations. GASTROINTESTINAL: No nausea or vomiting. No diarrhea or constipation. No change in bowel movements. No heartburn or swallowing difficulties. No abdominal pain. No jaundice. No hematemesis, melena or rectal bleeding. GENITOURINARY: No hematuria or dysuria. MUSCULOSKELETAL: No pain in the muscles, joints or bones. NEUROLOGICAL: She has occasional headache. HEMATOLOGIC/LYMPHATIC: She is weak, tired, and fatigued. SKIN: No skin rash or lumps. PSYCHIATRIC: No anxiety or depression. PHYSICAL EXAMINATION GENERAL: Looks stable. Well-developed, well-nourished, and in no acute distress. VITAL SIGNS: Blood pressure 131/73, pulse 82 per minute, respirations 16 per minute, temperature 96.6, pulse oximetry 88% on room air. HEENT: Head: Atraumatic. No sinus tenderness to palpation. Eyes: No icterus or conjunctivitis. Mouth and throat: No oral thrush or mucositis. NECK: Supple. No cervical or supraclavicular lymphadenopathy. LUNGS: Clear to auscultation and percussion bilaterally. HEART: Regular rate and rhythm. No gallops, murmurs, clicks or rubs. ABDOMEN: Soft and lax. No tenderness. No hepatosplenomegaly. No masses. EXTREMITIES: No cyanosis, clubbing or edema. LYMPHATICS: No peripheral lymphadenopathy. NEUROLOGICAL: Conscious, alert and oriented times three. No focal motor or sensory deficits. PSYCHIATRIC: Mood and affect appear normal. SKIN: No skin rash, bruise or purpuric eruption. DIAGNOSTIC DATA CBC showed white count 27.2, hemoglobin 14.6, hematocrit 42.5, platelet 166,000. Chem panel is totally normal except alkaline phosphatase 161. PET/CT scan done on 22 April 2018 showed that the uptake within the nodes and spleen has completely disappeared. There is an area of linear uptake along the wall of the cavitary lesion in the right lung base, which could be an inflammatory or infectious lesion and unrelated to lymphoma. ASSESSMENT 1. Stage IV mantle cell lymphoma with CD5-positive B-cell lymphoproliferative disorder, phenotypically consistent with mantle cell lymphoma by flow cytometry of the peripheral blood done October 18, 2017. CT chest, abdomen, and pelvis October 18, 2017, did reveal bulky mediastinal, bilateral hilar, in addition to massive retroperitoneal mesenteric adenopathy and massive splenomegaly. Those results are confirmed by PET/CT scan done on 08 Nov 2017. Bone marrow aspiration biopsy October 29, 2017, came back positive for mantle cell lymphoma; BCL1 and SOX11 were positive. FISH was positive for variant translocation 11;14. Patient started treatment with rituximab and bendamustine November 14, 2017. She finished six cycles so far, and her PET scan after that, on 22 April 2018, showed complete disappearance of the uptake from the lymph nodes and spleen. Spleen is getting smaller in size but still enlarged. There was an area of linear uptake along the wall of the cavitary lesion in the right lung base, which could represent inflammatory/infectious lesion and not related to lymphoma. Giving her the benefit of the doubt, I am planning to treat her with two more cycles of rituximab and bendamustine to be followed by maintenance rituximab therapy every two months for two years. I spent a long time with the patient and her explaining the plan of management, and she is agreeable with such a plan. I am planning to proceed with her seventh cycle of rituximab and bendamustine. I will see her in one month from now with CBC, chem panel, LDH, and uric acid prior to the next dose of chemotherapy. 2. Chronic cough. Patient could have an infection in her lung, as per PET scan. 3. Hypertension, on treatment. 4. Hyperlipidemia, on treatment. PLAN 1. Rituximab and bendamustine. This will be cycle #7 as per schedule. 2. CBC and chem panel to be checked weekly. 3. Patient to return in four weeks with CBC, chem panel, LDH, and uric acid. 4. Neulasta 6 mg after chemotherapy. 5. Patient to contact us for any new concerns or complaints. MTDD
== END ==
LOC: SPU 01-25 08:55 → ONC 02-15 08:59 → SPU 02-19 14:30 → ONC 03-18 10:00 → SPU 03-25 10:15 → ONC 04-05 12:27 → SPU 04-08 10:13 → ONC 04-15 09:57 → SPU 04-16 13:00 → ONC 12:16
PROVIDERS: ATTEND Internal Medicine Hematology
DX: Z51.11 Encounter for antineoplastic chemotherapy (principal); C85.97 Non-Hodgkin lymphoma, unspecified, spleen; I10 Essential (primary) hypertension; E78.5 Hyperlipidemia, unspecified; Z79.899 Other long term (current) drug therapy; F17.210 Nicotine dependence, cigarettes, uncomplicated; R53.1 Weakness; R53.83 Other fatigue; R11.0 Nausea; R19.7 Diarrhea, unspecified; Z23 Encounter for immunization
CPT/HCPCS: 36591; 71046; 83615; 84100; 84550; 85025; 85027; 90471; 96360; 96372; 96375; 96413; 96415; 96417; 96523; A9270; G0463; J1100; J1200; J1642; J2469; J2505; J7030; J7040; J7050; J9034; J9310; Q0163; Q2037; 82040; 82247; 82310; 82374; 82435; 82565; 82947; 84075; 84132; 84155; 84295; 84450; 84460; 84520; 90674; 99212

== ENCOUNTER 2018-07-17 10:00 | Outpatient (RCR) | payer MEDICARE ==
[2017-11-23 20:31] VITALS: Ht 158.8 cm; Wt 50.2 kg
[2018-04-29 10:24] LABS: PLATELET COUNT, AUTOMATED 164 K/uL (150-450)
[2018-04-29] MEDS: HEPARIN FLSH (PORT) 500 UN/5ML IVP PRN (12:41)
[2018-05-06] MEDS: HEPARIN FLSH (PORT) 500 UN/5ML IVP PRN (13:38)
[2018-05-06 13:57] LABS: PLATELET COUNT, AUTOMATED 179 K/uL (150-450)
[2018-05-06 16:06] VITALS: BP 126/79
[2018-05-13 10:04] VITALS: BP 134/74
[2018-05-13] MEDS: NS(*) 0.9% 500 ML BAG 500 ML IV PRN (11:41)
[2018-05-13] MEDS: ACETAMINOPHEN 325 MG TAB PO PRN (11:44)
[2018-05-13] MEDS: diphenhydrAMINE 25 MG CAP PO PRN (12:11)
[2018-05-13 15:10] VITALS: BP 105/55
[2018-05-13] MEDS: HEPARIN FLSH (PORT) 500 UN/5ML IVP PRN (15:30)
--- NOTE | 2018-05-14 08:55 | ONCOLOGY FOLLOW UP NOTE ---
EVENT DATE: May 13, 2018 CHIEF COMPLAINT Followup for mantle cell lymphoma. HISTORY OF PRESENT ILLNESS Patient is a 73-year-old female who is seen today for consideration of cycle #7 of bendamustine and Rituxan. Overall, she has been tolerating this well. She has had no issues with reactions to the rituximab. Her energy is good. She describes a chronic cough but unfortunately continues to smoke cigarettes. She also has some allergic rhinitis symptoms. She was concerned as her weight was slightly less but we discussed that she was previously weighed on the different scale. She has had issues with very loose stools but feels this has improved since early April. She otherwise denies any new complaints. ONCOLOGY HISTORY Patient is a 73-year-old female who presented to the emergency department at [facility] in October 2017 with left-sided abdominal pain on and off for the last few months. During her evaluation, the patient was found to have lymphocytosis with 71% lymphocytes, 20% neutrophils, and fullness in the left upper quadrant due to splenomegaly suspicious for lymphoma. CT chest, abdomen, and pelvis done on October 18, 2017, which showed bulky mediastinal and bilateral hilar adenopathy in addition to massive retroperitoneal mesenteric adenopathy and periportal adenopathy. Massive splenomegaly was also noted. There was a mass effect on the mid splenic vein by the lymph node mass. There was extensive honeycombing in the right lower lobe adjacent irregular cavitary lesion, likely chronic. There was also noted a 5 mm subpleural noncalcified nodule in the right lower lobe. Flow cytometry of the leukemia lymphoma panel was positive for CD5-positive B-cell lymphoproliferative disorder with phenotype features most consistent with mantle cell lymphoma, although an unusual chronic lymphocytic leukemia or small lymphocytic lymphoma could not be completely excluded. PET/CT scan done on November 08, 2017 showed lymphadenopathy above and below the diaphragm. She had marked splenomegaly, hilar adenopathy, mediastinal adenopathy, left internal mammary lymph node activity, gastrohepatic in the periportal region, retropleural adenopathy along the aorta, and periaortic activity down through the abdomen to the bifurcation. Bone marrow aspiration biopsy done on October 29, 2017, was positive for mantel cell lymphoma. BCL1 and SOX11 were positive. Flow cytometry was positive for CD5 monoclonal B-cell population. FISH was positive for variant translocation 11;14. Patient started chemotherapy with rituximab and bendamustine on November 14, 2017. PAST MEDICAL HISTORY 1. Trigeminal neuralgia. 2. Hypertension. 3. Hyperlipidemia. 4. GERD. PAST SURGICAL HISTORY 1. Tonsillectomy. 2. Surgery for trigeminal neuralgia. 3. Appendectomy. 4. Hysterectomy. 5. Cochlear implant surgery. 6. Surgery for left ankle fracture. FAMILY HISTORY Mother had lung cancer. SOCIAL HISTORY Patient is with no children. She is a homemaker. She smoked one and a half packs a day for 50 years. She drinks wine and beer two to three a day for a long time. Denies any abuse of illicit drugs. CURRENT MEDICATIONS 1. Percocet 5/325 mg tablet q.6 hours p.r.n. for pain. 2. Benazepril hydrochloride 10 mg daily. 3. Amlodipine 5 mg daily. 4. Glucosamine sulfate 1000 mg tablet twice daily. 5. Premarin 0.9 mg tablet daily. 6. Lipitor 20 mg daily. 7. Calcium with vitamin D one tablet daily. ALLERGIES 1. PENICILLIN DERIVATIVES. 2. AMOXICILLIN which caused diarrhea. 3. SULFA, which she does not know the reaction. REVIEW OF SYSTEMS A 12-point review of systems is performed and is negative except as stated above. PHYSICAL EXAMINATION VITAL SIGNS: Weight 48.9 kg, BP 134/74, P 112, R 16, temperature 97.7, O2 sat 99%. GENERAL: Patient is a well-developed, well-nourished female in no acute distress. HEAD: Atraumatic, normocephalic. EYES: Sclerae anicteric. MOUTH: Moist mucous membranes with postnasal drip visible in posterior pharynx. No exudates or erythema. NECK: Supple. No palpable adenopathy. LUNGS: Slightly diminished but clear bilaterally. CARDIOVASCULAR: Heart rate regular, 104 per minute without murmur, S3 or S4. ABDOMEN: Soft and nontender with active bowel sounds. Spleen is not palpable. EXTREMITIES: No edema. NEUROLOGICAL: Nonfocal. LABS CBC today reveals a WBC of 8.0, hemoglobin 15.5, hematocrit 45.6, platelets 164,000. CMP is within normal limits. Magnesium is 2.1. IMPRESSION AND PLAN The patient is a 73-year-old female diagnosed with stage IV mantle cell lymphoma. She began treatment with bendamustine and Rituxan on 11/14/2017. PET scan on April 22, 2018 after six cycles showed complete disappearance of the uptake from the lymph nodes in the spleen. The spleen was still minimally enlarged. There was an area of linear uptake along the wall of the cavitary lesion in the right lung base. Dr. Benton elected to treat her with two more cycles of bendamustine and Rituxan. 1. Mantle cell lymphoma. She will receive cycle #7 today followed by Jyoti. 2. Chronic cough. This has been ongoing. She is a long-term smoker and is not interested in stopping although has cut down some. She also describes some allergic rhinitis symptoms but is not using Flonase on a regular basis. I recommended that she try to use this on a daily basis. 3. GI. History of loose stools. She states this has been somewhat better since early April. She has been on magnesium for many months. Magnesium today is 2.1. She will discontinue her oral magnesium. 4. Weight. Patient was concerned as she believes she has lost some weight. Weight on April 25, 2018 was 51.4 kg. We reviewed that the previous weight was taken on a different scale. On review, weight has been fluctuating between 48.9kg and 53.5kg since February 2018. We will continue to monitor trend. She believes she is eating well and has no GI issues related to eating. 5. Followup for weekly labs. 6. Followup with Dr. Benton on June 07, 2018 for continued care. [facility]
[2018-05-14 15:47] VITALS: BP 110/75
[2018-05-20 10:38] VITALS: BP 118/57
[2018-05-20] MEDS: HEPARIN FLSH (PORT) 500 UN/5ML IVP PRN (10:55)
[2018-05-20 10:56] LABS: PLATELET COUNT, AUTOMATED 146 K/uL (150-450)
[2018-05-27 10:58] LABS: PLATELET COUNT, AUTOMATED 135 K/uL (150-450)
[2018-05-27 11:21] VITALS: BP 94/56
[2018-06-05 10:10] VITALS: BP 128/57
[2018-06-05 10:21] LABS: PLATELET COUNT, AUTOMATED 140 K/uL (150-450)
[2018-06-05] MEDS: HEPARIN FLSH (PORT) 500 UN/5ML IVP PRN (11:48)
[2018-06-07 13:37] VITALS: BP 107/61
--- NOTE | 2018-06-07 16:49 | EL-TARABILY ONCOLOGY NOTE ---
EVENT DATE: June 07, 2018 DIAGNOSES 1. Stage IV mantle cell lymphoma. 2. Hypertension. 3. Hyperlipidemia. CHIEF COMPLAINT Patient is here today for followup of her stage IV mantle cell lymphoma. ONCOLOGY HISTORY Patient is a 73-year-old female who presented to the emergency department at [facility] in [place], [place], with left-sided abdominal pain on and off for the last few months. During her evaluation, the patient was found to have lymphocytosis with 71% lymphocytes, 20% neutrophils, and fullness in the left upper quadrant due to splenomegaly suspicious for lymphoma, so the patient had a CT chest, abdomen, and pelvis done on October 18, 2017, which showed bulky mediastinal and bilateral hilar adenopathy in addition to massive retroperitoneal mesenteric adenopathy and periportal adenopathy. Massive splenomegaly was also noted. There was a mass effect on the mid splenic vein by the lymph node mass. There was extensive honeycombing in the right lower lobe adjacent irregular cavitary lesion, likely chronic. There was also noted a 5 mm subpleural noncalcified nodule in the right lower lobe. I received a call from the ER physician that day about the findings, and I advised to do flow cytometry of the leukemia lymphoma panel, which was done on October 18, 2017. The diagnosis came back positive for CD5-positive B-cell lymphoproliferative disorder with phenotype features most consistent with mantle cell lymphoma, although an unusual chronic lymphocytic leukemia or small lymphocytic lymphoma cannot be completely excluded. Patient had a PET/CT scan done on November 08, 2017, which showed lymphadenopathy above and below the diaphragm. She had marked splenomegaly, hilar adenopathy, mediastinal adenopathy, left internal mammary lymph node activity, gastrohepatic in the periportal region, retropleural adenopathy along the aorta, and periaortic activity down through the abdomen to the bifurcation. Bone marrow aspiration biopsy done on October 29, 2017, was positive for mantel cell lymphoma. BCL1 and SOX11 were positive. Flow cytometry was positive for CD5 monoclonal B-cell population. FISH was positive for variant translocation 11;14. Patient started chemotherapy with rituximab and bendamustine on November 14, 2017. Patient received six cycles of rituximab and bendamustine completed on May 13, 2018. HISTORY OF PRESENT ILLNESS Patient is here today for followup of her stage IV mantle cell lymphoma. She is doing fine currently. She is complaining of cough with expectoration. She has also constipation but other than that she is really doing very well today. PAST MEDICAL HISTORY 1. Trigeminal neuralgia. 2. Hypertension. 3. Hyperlipidemia. 4. GERD. PAST SURGICAL HISTORY 1. Tonsillectomy. 2. Surgery for trigeminal neuralgia. 3. Appendectomy. 4. Hysterectomy. 5. Cochlear implant surgery. 6. Surgery for left ankle fracture. FAMILY HISTORY Mother had lung cancer. SOCIAL HISTORY Patient is with no children. She is a homemaker. She smoked one and a half packs a day for 50 years. She drinks wine and beer two to three a day for a long time. Denies any abuse of illicit drugs. CURRENT MEDICATIONS 1. Percocet 5/325 mg tablet q.6 hours p.r.n. for pain. 2. Benazepril hydrochloride 10 mg daily. 3. Amlodipine 5 mg daily. 4. Glucosamine sulfate 1000 mg tablet twice daily. 5. Premarin 0.9 mg tablet daily. 6. Lipitor 20 mg daily. 7. Calcium with vitamin D one tablet daily. ALLERGIES 1. PENICILLIN DERIVATIVES. 2. AMOXICILLIN which caused diarrhea. 3. SULFA, which she does not know the reaction. REVIEW OF SYSTEMS CONSTITUTIONAL: No appetite or weight change. No fever, chills or sweating. No recent infection. HEENT: Ears: No tinnitus or hearing problem. Nose: She has nasal discharge. Throat: No sore throat or mouth ulcers. Eyes: No diplopia or visual changes. RESPIRATORY: She has cough with expectoration. CARDIOVASCULAR: No chest pain, orthopnea, or paroxysmal nocturnal dyspnea (PND). No edema. No palpitations. GASTROINTESTINAL: She has constipation. GENITOURINARY: No hematuria or dysuria. MUSCULOSKELETAL: No pain in the muscles, joints or bones. NEUROLOGICAL: She has occasional headache. HEMATOLOGIC/LYMPHATIC: She is weak, tired, and fatigued. SKIN: No skin rash or lumps. PSYCHIATRIC: No anxiety or depression. PHYSICAL EXAMINATION GENERAL: Looks stable. Well-developed, well-nourished, and in no acute distress. VITAL SIGNS: Blood pressure 107/61, pulse 91 per minute, respirations 16 per minute, temperature 96.7, pulse oximetry 98% on room air. HEENT: Head: Atraumatic. No sinus tenderness to palpation. Eyes: No icterus or conjunctivitis. Mouth and throat: No oral thrush or mucositis. NECK: Supple. No cervical or supraclavicular lymphadenopathy. LUNGS: Clear to auscultation and percussion bilaterally. HEART: Regular rate and rhythm. No gallops, murmurs, clicks or rubs. ABDOMEN: Soft and lax. No tenderness. No hepatosplenomegaly. No masses. EXTREMITIES: No cyanosis, clubbing or edema. LYMPHATICS: No peripheral lymphadenopathy. NEUROLOGICAL: Conscious, alert and oriented times three. No focal motor or sensory deficits. PSYCHIATRIC: Mood and affect appear normal. SKIN: No skin rash, bruise or purpuric eruption. DIAGNOSTIC DATA CBC showed white count 8.2, hemoglobin 15.3, hematocrit 45.7, platelet 140,000. Chem panel is totally normal except creatinine 1.1 ASSESSMENT 1. Stage IV mantle cell lymphoma with CD5-positive B-cell lymphoproliferative disorder, phenotypically consistent with mantle cell lymphoma by flow cytometry of the peripheral blood done October 18, 2017. CT chest, abdomen, and pelvis October 18, 2017, did reveal bulky mediastinal, bilateral hilar, in addition to massive retroperitoneal mesenteric adenopathy and massive splenomegaly. Those results are confirmed by PET/CT scan done on November 08, 2017. Bone marrow aspiration biopsy October 29, 2017, came back positive for mantle cell lymphoma; BCL1 and SOX11 were positive. FISH was positive for variant translocation 11;14. Patient received seven cycles of rituximab and bendamustine between November 14, 2017, through May 13, 2018. PET scan done on April 22, 2018, showed complete disappearance of the uptake from the lymph nodes and spleen. The spleen is getting smaller in size but still enlarged. There was an area of linear uptake along the wall of the cavitary lesion in the right lung base, which could represent inflammatory/infectious lesion and not related to lymphoma. I am planning to start maintenance rituximab therapy as the patient has mantle cell lymphoma and I am planning to start it at the beginning of July 2018. I explained that to the patient because patient expressed his wishes not to receive the last cycle of chemotherapy because she lost her taste buds after her last cycle and I agree with that as long as she is going to have the maintenance rituximab therapy. I am planning to see her in July with CBC, chem panel, LDH, uric acid and to start treatment with rituximab at that time. 2. Hypertension, on treatment. 3. Hyperlipidemia, on treatment. PLAN 1. Continue followup. 2. Patient to return the beginning of July 2018 with CBC, chem panel, LDH, uric acid to start maintenance rituximab therapy 3. Port flush every month. 4. Patient to contact us for any new concerns or complaints. MTDD
[~2018-07-17] VITALS: Ht 158.8 cm; Wt 50.2 kg
[~2018-07-17 10:00] MED LIST changes: +ALTEPLASE RECOMB 2 MG VIAL IVP PRN; +BENDAMUSTINE HCL IVPB ONE; +DEXAMETHASONE SOD PHOS 10MG/ML IVP PRN; +DEXTROSE 5%(*) 100 ML BAG 100 ML IVPB PRN; +LIDOCAINE/SOD BICARB 8.4% SYR ID PRN; +NS 0.9% IVPB ONE; +NS(*) 0.9% 100 ML BAG 100 ML IVPB PRN; +PALONOSETRON 0.25 MG/5 ML VIAL IVP PRN; +PEGFILGRASTIM 6 MG/0.6 ML SYR SUBQ ONE; +RITUXIMAB IV ONE; +WATER FOR INJ,STERILE 20 ML IVP PRN; +[UNRECOGNIZED DRUG - OTHER] IV ONE; +diphenhydrAMINE 50 MG/ML VIAL IVP PRN
[2018-07-17] MEDS: ACETAMINOPHEN 325 MG TAB PO PRN (10:58)
[2018-07-17] MEDS: diphenhydrAMINE 25 MG CAP PO PRN (10:59)
[2018-07-17] MEDS: HEPARIN FLSH (PORT) 500 UN/5ML IVP PRN (10:59)
[2018-07-17] MEDS: NS(*) 0.9% 500 ML BAG 500 ML IV PRN (11:17)
[2018-07-17 11:29] VITALS: BP 108/54
[2018-07-17] MEDS ORDERED: RITUXIMAB IV ONE (11:30)
[2018-07-17] MEDS ORDERED: [UNRECOGNIZED DRUG - OTHER] IV ONE (11:30)
[2018-07-17 11:55] VITALS: BP 105/58
--- NOTE | 2018-07-17 12:37 | ONCOLOGY FOLLOW UP NOTE ---
EVENT DATE: July 17, 2018 CHIEF COMPLAINT Followup for Mantle cell lymphoma. HISTORY OF PRESENT ILLNESS Patient is a 73-year-old female who is seen today to begin maintenance Rituxan. We reviewed possible side effects. She understands this will be given on an every eight week basis for two years. She is generally doing well. Energy has improved. Her biggest issue is that of allergic rhinitis. She found that Flonase was not terribly helpful. Dr. Cordoba gave her Claritin but she stated it made her sleepy so she stopped this. Otherwise, she denies any new complaints. ONCOLOGY HISTORY Patient is a 73-year-old female who presented to the emergency department at [facility], [place] in October 2017 with left-sided abdominal pain on and off for the last few months. During her evaluation, the patient was found to have lymphocytosis with 71% lymphocytes, 20% neutrophils, and fullness in the left upper quadrant due to splenomegaly suspicious for lymphoma. CT chest, abdomen, and pelvis done on October 18, 2017, which showed bulky mediastinal and bilateral hilar adenopathy in addition to massive retroperitoneal mesenteric adenopathy and periportal adenopathy. Massive splenomegaly was also noted. There was a mass effect on the mid splenic vein by the lymph node mass. There was extensive honeycombing in the right lower lobe adjacent irregular cavitary lesion, likely chronic. There was also noted a 5 mm subpleural noncalcified nodule in the right lower lobe. Flow cytometry of the leukemia lymphoma panel was positive for CD5-positive B-cell lymphoproliferative disorder with phenotype features most consistent with mantle cell lymphoma, although an unusual chronic lymphocytic leukemia or small lymphocytic lymphoma could not be completely excluded. PET/CT scan done on November 08, 2017 showed lymphadenopathy above and below the diaphragm. She had marked splenomegaly, hilar adenopathy, mediastinal adenopathy, left internal mammary lymph node activity, gastrohepatic in the periportal region, retropleural adenopathy along the aorta, and periaortic activity down through the abdomen to the bifurcation. Bone marrow aspiration biopsy done on October 29, 2017, was positive for mantel cell lymphoma. BCL1 and SOX11 were positive. Flow cytometry was positive for CD5 monoclonal B-cell population. FISH was positive for variant translocation 11;14. Completed eight cycles of bendamustine and rituximab from November 14, 2017, through May 13, 2018. Began maintenance rituximab on July 17, 2018. PAST MEDICAL HISTORY 1. Trigeminal neuralgia. 2. Hypertension. 3. Hyperlipidemia. 4. GERD. PAST SURGICAL HISTORY 1. Tonsillectomy. 2. Surgery for trigeminal neuralgia. 3. Appendectomy. 4. Hysterectomy. 5. Cochlear implant surgery. 6. Surgery for left ankle fracture. FAMILY HISTORY Mother had lung cancer. SOCIAL HISTORY Patient is with no children. She is a homemaker. She smoked one and a half packs a day for 50 years. She drinks wine and beer two to three a day for a long time. Denies any abuse of illicit drugs. CURRENT MEDICATIONS 1. Glucosamine sulfate 1000 mg tablet twice daily. 2. Premarin 0.9 mg tablet daily. 3. Lipitor 20 mg daily. 4. Calcium with vitamin D one tablet daily. 5. Acyclovir 400 mg b.i.d. 6. Meclizine 25 mg b.i.d. p.r.n. dizziness. 7. Glucosamine b.i.d. ALLERGIES 1. PENICILLIN DERIVATIVES. 2. AMOXICILLIN which caused diarrhea. 3. SULFA, which she does not know the reaction. REVIEW OF SYSTEMS A 12-point review of systems is performed and is negative except as stated above. PHYSICAL EXAMINATION VITAL SIGNS: Weight 50.2.kg, BP 133/58, P 106, R 16, temperature 97.9, O2 sat 93%. GENERAL: Patient is a well-developed, well-nourished female in no acute distress. She is hard of hearing. HEAD: Normocephalic, atraumatic. EYES: Sclerae anicteric. MOUTH: Moist mucous membranes. Postnasal drip visible. No exudates or erythema. NECK: Supple. No palpable adenopathy. LUNGS: Clear bilaterally but diminished. CARDIOVASCULAR: Heart rate regular, 106 per minute. EXTREMITIES: No edema. NEUROLOGICAL: Nonfocal. LABS CBC today reveals a WBC of 6.0, hemoglobin 15.5, hematocrit 45.5, platelets 139,000. CMP is within normal limits except for a slightly elevated creatinine of 1.1. LDH 24. IMPRESSION AND PLAN The patient is a 73-year-old female diagnosed with stage IV mantle cell lymphoma. Completed eight cycles of bendamustine and Rituxan from November 14, 2017, through May 13, 2018. Began maintenance Rituximab on July 17, 2018. 1. Mantle cell lymphoma. Cycle #1 of maintenance rituximab. We reviewed some of the possible side effects. This treatment will be given slowly. 2. Allergic rhinitis. She did not find Flonase to be helpful. She used Claritin but this made her too sleepy. I recommended she consider taking this at bedtime. 3. Weight. The patient was concerned she had lost weight. However, weight has improved. She is eating well. 4. Shingles prophylaxis. She is wondering whether she needs to continue the acyclovir. She will continue acyclovir 400 mg b.i.d. for the next two months and we will reevaluate this at her next visit. 5. Port-A-Cath flush in one month. 6. Follow up with Dr. Benton on September 06, 2018. She will receive cycle #2 of maintenance rituximab on September 11, 2018. MTDD
== END 2018-07-28 ==
LOC: ONC 10:00
PROVIDERS: ATTEND Internal Medicine Hematology
DX: Z51.11 Encounter for antineoplastic chemotherapy (principal); C85.97 Non-Hodgkin lymphoma, unspecified, spleen; I10 Essential (primary) hypertension; E78.5 Hyperlipidemia, unspecified; Z79.899 Other long term (current) drug therapy; F17.210 Nicotine dependence, cigarettes, uncomplicated; R53.1 Weakness; R53.83 Other fatigue; R11.0 Nausea; R19.7 Diarrhea, unspecified; Z23 Encounter for immunization; R05 Cough; K59.00 Constipation, unspecified
CPT/HCPCS: 36415; 36591; 83615; 83735; 84100; 84550; 85025; 85027; 96372; 96375; 96413; 96415; 96417; 96523; A9270; G0463; J1100; J1642; J2469; J2505; J7040; J7050; J9034; J9310; J9312; Q0163; 82040; 82247; 82310; 82374; 82435; 82465; 82565; 82947; 83718; 84075; 84132; 84155; 84295; 84450; 84460; 84478; 84520; 99212

== ENCOUNTER → 2018-07-17 | Outpatient (CLI) | payer MEDICARE ==
[2017-11-23 20:31] VITALS: BMI 22.5
[~2018-07-17] MED LIST changes: +ACET-1966 PO; -ALTEPLASE RECOMB 2 MG VIAL IVP PRN; -AMLO-111 PO; +AMLO-125 PO; -BENDAMUSTINE HCL IVPB ONE; -DEXTROSE 5%(*) 100 ML BAG 100 ML IVPB PRN; +FLUT16SP19 NS; -INFLUENZA VIRUS VAC 0.5ML SYR IM ONLY ONE; -LIDOCAINE/SOD BICARB 8.4% SYR ID PRN; -NS 0.9% IVPB ONE; -NS(*) 0.9% 100 ML BAG 100 ML IVPB PRN; -NS(*) 0.9% 1000 ML BAG 1,000 ML IV ONE; -PEGFILGRASTIM 6 MG/0.6 ML KIT SUBQ ONE; -PEGFILGRASTIM 6 MG/0.6 ML SYR SUBQ ONE; -RITUXIMAB IV ONE; +SENN1TAB28 PO; -WATER FOR INJ,STERILE 20 ML IVP PRN; -[UNRECOGNIZED DRUG - OTHER] IV ONE; -diphenhydrAMINE 50 MG/ML VIAL IVP PRN
[2018-07-17 10:17] VITALS: BP 133/53
== END ==
LOC: SPU 06:45
PROVIDERS: ATTEND Family Medicine
DX: E78.5 Hyperlipidemia, unspecified (principal)
CPT/HCPCS: 82465; 83718; 84478

== ENCOUNTER → 2018-10-04 | Outpatient (CLI) | payer MEDICARE ==
[2017-11-23 20:31] VITALS: BMI 22.5
[~2018-10-04] MED LIST changes: -ALTEPLASE RECOMB 2 MG VIAL IVP PRN; -BENDAMUSTINE HCL IVPB ONE; -DEXAMETHASONE SOD PHOS 10MG/ML IVP PRN; -DEXTROSE 5%(*) 100 ML BAG 100 ML IVPB PRN; -GLUC100013 PO; +GUAI600T57 PO; +IOPAMIDOL 76% 150 ML INFUS BTL 150 ML ONE; -LIDOCAINE/SOD BICARB 8.4% SYR ID PRN; +MONT10TA PO; -NS 0.9% IVPB ONE; -NS(*) 0.9% 100 ML BAG 100 ML IVPB PRN; -PALONOSETRON 0.25 MG/5 ML VIAL IVP PRN; -PEGFILGRASTIM 6 MG/0.6 ML SYR SUBQ ONE; -RITUXIMAB IV ONE; -WATER FOR INJ,STERILE 20 ML IVP PRN; +[UNRECOGNIZED DRUG - CODE] PO; -[UNRECOGNIZED DRUG - OTHER] IV ONE; -diphenhydrAMINE 50 MG/ML VIAL IVP PRN
--- NOTE | 2018-10-04 16:18 | RADIOLOGY IMAGING REPORT ---
FACILITY: [facility] PATIENT NAME: Susan Asencio : 1945 MR: [id number] V: [id number] EXAM DATE: ORDERING PHYSICIAN: LUCÍA MEDINA TECHNOLOGIST: Location: [facility] [place] Patient: Susan Asencio : 1945 Visit/Account:[id number] Date of Sevice: 10/04/2018 CT CHEST W & W/O CON History: follow up pulmonary nodules, history of lymphoma ADDITIONAL CLINICAL HISTORY: None TECHNIQUE: Contiguous axial images were performed through the chest to the level of the adrenal gla nds with and without IV contrast. Coronal and sagittal reformatting was also performed.Dose Lowerin g Technique One of the following dose optimization techniques was utilized in the performance of this exam: Autom ated exposure control; adjustment of the mA and/or kV according to the patient's size; or use of an i terative reconstruction technique. Specific details can be referenced in the facility's radiology C T exam operational policy. Contrast: 75 mL Isovue-[id number] COMPARISON STUDIES: CT chest abdomen pelvis October 18, 2017. Lungs / Pleura: Extensive honeycombing the adjacent cavity in the right lower lobe is again seen. The cavity has increased in size and now measures 3.9 x 2.5 cm as opposed to 3.2 x 2.1 cm previously. An air-fluid level is not appreciated within the cavitary lesion. There appears to be a more solid peripheral component adjacent to this cavitary lesion measuring 2.6 x 1.6 cm The previously noted 5 mm subpleural nodule on the right lower lobe now appears more groundglass like as opposed to a solid nodule and is best appreciated on image 80 of series 8. There is a 1.3 cm noncalcified nodule in the anterior left lower lobe best appreciated on image 54 of series 8 Mediastinum/nodes: There is been marked improvement of the bulky hilar and mediastinal adenopathy wh en compared the prior study. The largest remaining node is a 1.3 x 0.8 cm right hilar lymph node. Heart and vessels: There is a right-sided implanted port the distal tip in the superior vena cava. There are coronary artery calcifications present. There moderate severe vascular calcifications in t he thoracic aorta is well Musculoskeletal / Body wall: Small sclerotic density at the junction of the right pedicle and body of T10 appears unchanged Upper abdomen: Cholelithiasis. Spleen is incompletely imaged although appears to be enlarged IMPRESSION: The a cavitary lesion in the right lower lobe extensive adjacent honeycombing appears to be increased in size. There is no air-fluid level identified. This is of uncertain etiology. There is an adjac ent increasing airspace consolidation which could are present atelectasis although mass lesion is not excluded. The previously noted 5 mm posterior right lower lobe probably nodule is unchanged in size although now appears more ground glass like as opposed to solid. There is a 1.3 cm noncalcified nodule anterior left lower lobe which is worrisome for a malignant nod ule Marked improvement of the mediastinal adenopathy Small sclerotic junction T10 appears stable Extensive vascular calcifications Cholelithiasis Spleen is incompletely imaged although appears to be enlarged Report Dictated By: Yesenia Hernandez MD at 10/04/2018 4:00 PM Report E-Signed By: Yesenia Hernandez MD at 10/04/2018 4:13 PM HATTIEN:AMICIVN
== END ==
LOC: CT 07:08
PROVIDERS: ATTEND Family Medicine
DX: R91.8 Other nonspecific abnormal finding of lung field (principal); I25.10 Atherosclerotic heart disease of native coronary artery without angina pectoris; K80.20 Calculus of gallbladder without cholecystitis without obstruction
CPT/HCPCS: 71270; Q9967

== ENCOUNTER → 2018-10-18 | Outpatient (CLI) | payer MEDICARE ==
[2017-11-23 20:31] VITALS: BMI 22.5
[~2018-10-18] MED LIST changes: -IOPAMIDOL 76% 150 ML INFUS BTL 150 ML ONE
[2018-10-18 09:56] LABS: INR 0.97
== END ==
LOC: LAB 09:13
PROVIDERS: ATTEND Family Medicine
DX: Z01.812 Encounter for preprocedural laboratory examination (principal)
CPT/HCPCS: 36415; 85610

== ENCOUNTER 2018-10-21 02:20 | Day surgery (SDC) | payer MEDICARE ==
[2017-11-23 20:31] VITALS: BMI 22.5
[2018-10-21] MEDS ORDERED: LIDOCAINE MPF 1% 5 ML VIAL ONE (12:11)
[2018-10-21 12:27] VITALS: BP 157/68
[2018-10-21 13:00] VITALS: BP 131/64
--- NOTE | 2018-10-21 13:09 | NUR ---
1300 WHILE TAKING VITALS ON PATIENT, SHE STATED SHE HAD A SMALL AMOUNT OF BLOOD IN HER SPUTUM.
--- NOTE | 2018-10-21 13:14 | NUR ---
1305 Patient was able to void without difficulties
--- NOTE | 2018-10-21 13:36 | RADIOLOGY IMAGING REPORT ---
FACILITY: [facility] - [place] PATIENT NAME: Susan Asencio : 1945 MR: [id number] V: [id number] EXAM DATE: ORDERING PHYSICIAN: LUCÍA MEDINA TECHNOLOGIST: [facility] Patient: Susan Asencio : 1945 Visit/Account:[id number] Date of Sevice: 10/21/2018 CT-guided needle core biopsy of left lung nodule. HISTORY: Left lung nodule, chronic cough. COMPARISON: Chest CT scan 10/04/2018. The procedure and risks including bleeding, infection, nerve injury, pneumothorax, inadequate samplin g, and damage to internal organs were explained to the patient who agreed to proceed. One of the foll owing dose optimization techniques was utilized in the performance of this exam: Automated exposure c ontrol; adjustment of the mA and/or kV according to the patient's size; or use of an iterative recon struction technique. Specific details can be referenced in the facility's radiology CT exam operatio nal policy. Initial axial images were obtained confirming a 1.3 cm nodule in the anterior segment of the left low er lobe adjacent to the left major fissure. Following sterile prep and drape the skin was anesthetize d with two ml one percent lidocaine without epinephrine. The deeper tissues were anesthetized with ei ght ml one percent lidocaine without epinephrine. A skin gerardo was made with a number 11 blade. Using imaging guidance, a guide cannula was inserted into the lesion with care taken to avoid vessels, the left major fissure, and other major structures. Targeting was difficult because of the patient's int ermittent coughing fits. Next, multiple cores were obtained using a coaxial 20g core-cut biopsy needle. The cores were placed in formalin. The guide cannula was removed during injection of 10 mL autologous blood into the needl e tract. A sterile dressing was applied to the puncture site. The patient tolerated the procedure wel l without complications. MEDICATIONS: None. INTRASERVICE TIME: 40 minutes. CONTRAST: None. IMPRESSION: CT-guided needle biopsy of left lung nodule. Report Dictated By: Derik Calvin MD at 10/21/2018 1:27 PM Report E-Signed By: Derik Calvin MD at 10/21/2018 1:32 PM WSN:[email or web address]
[2018-10-21 13:43] VITALS: BP 117/66
--- NOTE | 2018-10-21 14:21 | RADIOLOGY IMAGING REPORT ---
FACILITY: [facility] - [place] PATIENT NAME: Susan Asencio : 1945 MR: [id number] V: [id number] EXAM DATE: ORDERING PHYSICIAN: DERIK CALVIN TECHNOLOGIST: Location: [facility] [place] Patient: Susan Asencio : 1945 Visit/Account:[id number] Date of Sevice: 10/21/2018 Portable chest, one view. HISTORY: Follow-up left lung biopsy. COMPARISON: 10/21/2018. A right-sided power port catheter tip projects on the superior vena cava. The heart size is normal. The aortic knob is calcified. Pulmonary vessels are normal. The lungs are voluminous. Patchy opac ities are present in the left lower lung and right lung base, unchanged. No pneumothorax. No acute bony abnormalities. IMPRESSION: No pneumothorax following left lung biopsy. Report Dictated By: Derik Calvin MD at 10/21/2018 2:14 PM Report E-Signed By: Derik Calvin MD at 10/21/2018 2:15 PM WSN:[email or web address]
[2018-10-21 14:23] VITALS: BP 115/54
--- NOTE | 2018-10-23 16:22 | RADIOLOGY IMAGING REPORT ---
FACILITY: [facility] PATIENT NAME: Susan Asencio : 1945 MR: [id number] V: [id number] EXAM DATE: ORDERING PHYSICIAN: DEENA REYES TECHNOLOGIST: [place] [facility] [place] Asencio : 1945 Visit/Account:[id number] Date of Sevice: 10/23/2018 Study: Single portable view of the chest. Indication: Status post lung biopsy Comparison study: None. Technique: Single AP view of the chest demonstrates no evidence of acute infiltrate. There is no evid ence of pleural effusion or pneumothorax. The mediastinal, cardiac, and diaphragmatic contours are un remarkable. There is a left mid lung mass present. IMPRESSION: No evidence of pneumothorax. Report Dictated By: Álvaro Cedillo at 10/21/2018 12:50 PM Report E-Signed By: Álvaro Cedillo at 10/21/2018 12:51 PM WSN:[id number]
== END 2018-10-21 14:30 | disposition home or self-care (01) ==
LOC: OR 02:20
PROVIDERS: ATTEND Family Medicine
DX: R91.1 Solitary pulmonary nodule (principal)
CPT/HCPCS: 47000; 71045; 77012; 88305; J2001; A7048

== ENCOUNTER → 2018-10-28 | Outpatient (CLI) | payer MEDICARE ==
[2017-11-23 20:31] VITALS: BMI 22.5
== END ==
LOC: LAB 09:10
PROVIDERS: ATTEND Family Medicine
DX: I10 Essential (primary) hypertension (principal)
CPT/HCPCS: 36415; 82310; 82374; 82435; 82565; 82947; 84132; 84295; 84520

== ENCOUNTER → 2018-10-29 | Outpatient (CLI) | payer MEDICARE ==
[2017-11-23 20:31] VITALS: BMI 22.5
[~2018-10-29] MED LIST changes: +IOPAMIDOL 76% 150 ML INFUS BTL 150 ML ONE
--- NOTE | 2018-10-29 12:51 | RADIOLOGY IMAGING REPORT ---
FACILITY: [facility] PATIENT NAME: Susan Asencio : 1945 MR: [id number] V: [id number] EXAM DATE: ORDERING PHYSICIAN: LUCAÍ MEDINA TECHNOLOGIST: Location: [facility] Patient: Susan Asencio : 1945 Visit/Account:[id number] Date of Sevice: 10/29/2018 CT BRAIN WITH AND WITHOUT COMPARISONS: None. ADDITIONAL PERTINENT HISTORY: History of lung cancer. TECHNIQUE: Multiple axial images were obtained from the skull base to the vertex before and after th e IV administration of contrast. One of the following dose optimization techniques was utilized in t he performance of this exam: Automated exposure control; adjustment of the mA and/or kV according to the patient's size; or use of an iterative reconstruction technique. Specific details can be refere nced in the facility's radiology CT exam operational policy. CONTRAST: 75 mL of Isovue-370 FINDINGS: Midline shift: Negative Ventricles: Negative Brain parenchyma: Negative Extra-axial spaces: Negative Pathologic enhancement: Negative Intracranial vasculature: Negative Osseous structures: Patient status post previous left occipital craniectomy. Previous placement of a cochlear implant in the right temporal bone. No acute appearing bony abnormalities. Paranasal sinuses and mastoid air cells: Frothy material within the right maxillary sinus. Otherwise negative Surrounding soft tissues and orbits: Negative IMPRESSION: 1. Postoperative changes with previous left occipital craniectomy. 2. No acute intracranial pathology. 3. Specifically no evidence of underlying pathologic enhancement. Report Dictated By: Simon Vang MD at 10/29/2018 12:41 PM Report E-Signed By: Simon Vang MD at 10/29/2018 12:45 PM WSN:[email or web address]
== END ==
LOC: CT 10-28 13:15
PROVIDERS: ATTEND Family Medicine
DX: C34.90 Malignant neoplasm of unspecified part of unspecified bronchus or lung (principal)
CPT/HCPCS: 70470; Q9967

== ENCOUNTER → 2018-11-12 | Outpatient (RCR) | payer MEDICARE ==
[2017-11-23 20:31] VITALS: Ht 158.8 cm; Wt 54.8 kg
[2018-08-14 10:03] VITALS: BP 129/75
[2018-08-14] MEDS: HEPARIN FLSH (PORT) 500 UN/5ML IVP PRN (10:05)
[2018-09-06 11:01] VITALS: BP 97/59
--- NOTE | 2018-09-07 08:48 | EL-TARABILY ONCOLOGY NOTE ---
EVENT DATE: September 06, 2018 DIAGNOSES 1. Stage IV mantle cell lymphoma. 2. Hypertension. 3. Hyperlipidemia. CHIEF COMPLAINT Patient is here today for followup of her stage IV mantle cell lymphoma. ONCOLOGY HISTORY Patient is a 73-year-old female who presented to the emergency department at [facility] in [place], [place], with left-sided abdominal pain on and off for the last few months. During her evaluation, the patient was found to have lymphocytosis with 71% lymphocytes, 20% neutrophils, and fullness in the left upper quadrant due to splenomegaly suspicious for lymphoma, so the patient had a CT chest, abdomen, and pelvis done on October 18, 2017, which showed bulky mediastinal and bilateral hilar adenopathy in addition to massive retroperitoneal mesenteric adenopathy and periportal adenopathy. Massive splenomegaly was also noted. There was a mass effect on the mid splenic vein by the lymph node mass. There was extensive honeycombing in the right lower lobe adjacent irregular cavitary lesion, likely chronic. There was also noted a 5 mm subpleural noncalcified nodule in the right lower lobe. I received a call from the ER physician that day about the findings, and I advised to do flow cytometry of the leukemia lymphoma panel, which was done on October 18, 2017. The diagnosis came back positive for CD5-positive B-cell lymphoproliferative disorder with phenotype features most consistent with mantle cell lymphoma, although an unusual chronic lymphocytic leukemia or small lymphocytic lymphoma cannot be completely excluded. Patient had a PET/CT scan done on November 08, 2017, which showed lymphadenopathy above and below the diaphragm. She had marked splenomegaly, hilar adenopathy, mediastinal adenopathy, left internal mammary lymph node activity, gastrohepatic in the periportal region, retropleural adenopathy along the aorta, and periaortic activity down through the abdomen to the bifurcation. Bone marrow aspiration biopsy done on October 29, 2017, was positive for mantel cell lymphoma. BCL1 and SOX11 were positive. Flow cytometry was positive for CD5 monoclonal B-cell population. FISH was positive for variant translocation 11;14. Patient started chemotherapy with rituximab and bendamustine on November 14, 2017. Patient received six cycles of rituximab and bendamustine completed on May 13, 2018. Patient started maintenance rituximab therapy in July 2018. HISTORY OF PRESENT ILLNESS Patient is here today for followup of her stage IV mantle cell lymphoma. She is doing fine currently. She has some nasal discharge. She has cough with expectoration and patient continues to smoke. PAST MEDICAL HISTORY 1. Trigeminal neuralgia. 2. Hypertension. 3. Hyperlipidemia. 4. GERD. PAST SURGICAL HISTORY 1. Tonsillectomy. 2. Surgery for trigeminal neuralgia. 3. Appendectomy. 4. Hysterectomy. 5. Cochlear implant surgery. 6. Surgery for left ankle fracture. FAMILY HISTORY Mother had lung cancer. SOCIAL HISTORY Patient is with no children. She is a homemaker. She smoked one and a half packs a day for 50 years. She drinks wine and beer two to three a day for a long time. Denies any abuse of illicit drugs. CURRENT MEDICATIONS 1. Percocet 5/325 mg tablet q.6 hours p.r.n. for pain. 2. Benazepril hydrochloride 10 mg daily. 3. Amlodipine 5 mg daily. 4. Glucosamine sulfate 1000 mg tablet twice daily. 5. Premarin 0.9 mg tablet daily. 6. Lipitor 20 mg daily. 7. Calcium with vitamin D one tablet daily. ALLERGIES 1. PENICILLIN DERIVATIVES. 2. AMOXICILLIN which caused diarrhea. 3. SULFA, which she does not know the reaction. REVIEW OF SYSTEMS CONSTITUTIONAL: No appetite or weight change. No fever, chills or sweating. No recent infection. HEENT: Ears: No tinnitus or hearing problem. Nose: She has nasal discharge. Throat: No sore throat or mouth ulcers. Eyes: No diplopia or visual changes. RESPIRATORY: She has cough with expectoration. CARDIOVASCULAR: No chest pain, orthopnea, or paroxysmal nocturnal dyspnea (PND). No edema. No palpitations. GASTROINTESTINAL: She has constipation. GENITOURINARY: No hematuria or dysuria. MUSCULOSKELETAL: No pain in the muscles, joints or bones. NEUROLOGICAL: She has occasional headache. HEMATOLOGIC/LYMPHATIC: She is weak, tired, and fatigued. SKIN: No skin rash or lumps. PSYCHIATRIC: No anxiety or depression. PHYSICAL EXAMINATION GENERAL: Looks stable. Well-developed, well-nourished, and in no acute distress. VITAL SIGNS: Blood pressure 97/59, pulse 96 per minute, respirations 16 per minute, temperature 96.7, pulse oximetry 91% on room air. HEENT: Head: Atraumatic. No sinus tenderness to palpation. Eyes: No icterus or conjunctivitis. Mouth and throat: No oral thrush or mucositis. NECK: Supple. No cervical or supraclavicular lymphadenopathy. LUNGS: Clear to auscultation and percussion bilaterally. HEART: Regular rate and rhythm. No gallops, murmurs, clicks or rubs. ABDOMEN: Soft and lax. No tenderness. No hepatosplenomegaly. No masses. EXTREMITIES: No cyanosis, clubbing or edema. LYMPHATICS: No peripheral lymphadenopathy. NEUROLOGICAL: Conscious, alert and oriented times three. No focal motor or sensory deficits. PSYCHIATRIC: Mood and affect appear normal. SKIN: No skin rash, bruise or purpuric eruption. DIAGNOSTIC DATA CBC showed white count 6,000, hemoglobin 15.5, hematocrit 45.5, platelet 139,000. Chem panel is totally normal except creatinine 1.1, chloride 109. ASSESSMENT 1. Stage IV mantle cell lymphoma with CD5-positive B-cell lymphoproliferative disorder, phenotypically consistent with mantle cell lymphoma by flow cytometry of the peripheral blood done October 18, 2017. CT chest, abdomen, and pelvis done October 18, 2017, did reveal bulky mediastinal, bilateral hilar, in addition to massive retroperitoneal mesenteric adenopathy and massive splenomegaly. Those results are confirmed by PET/CT scan done on November 08, 2017. Bone marrow aspiration biopsy October 29, 2017, came back positive for mantle cell lymphoma; BCL1 and SOX11 were positive. FISH was positive for variant translocation 11;14. Patient received seven cycles of rituximab and bendamustine between November 14, 2017, through May 13, 2018. PET scan done on April 22, 2018, showed complete disappearance of the uptake from the lymph nodes and spleen. The spleen is getting smaller in size but still enlarged. There was also an area of linear uptake along the wall of the cavitary lesion in the right lung base, which could represent inflammatory/infectious lesion and not related to lymphoma. Patient started maintenance rituximab therapy July 2018, and she tolerated the treatment very well so far. I am planning to proceed with her second cycle as scheduled for September 11, 2018, and I will see her in two months from now with CBC, chem panel, LDH and uric acid. 2. Hypertension, on treatment. 3. Hyperlipidemia, on treatment. PLAN 1. Rituximab maintenance therapy cycle #2 to be given on September 11, 2018. 2. Patient to return in two months with CBC, chem panel, LDH and uric acid prior to her next dose of Rituximab. 3. Port flush every month. 4. Patient to contact us for any new concerns or complaints. SHAJI
[2018-09-11 10:01] VITALS: BP 132/73
[2018-09-11 10:24] LABS: PLATELET COUNT, AUTOMATED 154 K/uL (150-450)
[2018-09-11 13:49] VITALS: BP 109/54
[2018-09-11] MEDS: HEPARIN FLSH (PORT) 500 UN/5ML IVP PRN (14:00)
[2018-10-08 13:05] VITALS: BP 107/48
[2018-10-08] MEDS: HEPARIN FLSH (PORT) 500 UN/5ML IVP PRN (13:07)
[2018-11-01 10:21] VITALS: BP 119/65
--- NOTE | 2018-11-01 20:59 | ONCOLOGY FOLLOW UP NOTE ---
EVENT DATE: November 01, 2018 DIAGNOSES 1. Stage IV mantle cell lymphoma. 2. Hypertension. 3. Hyperlipidemia. 4. Left lower lobe small-cell lung cancer. CHIEF COMPLAINT Patient is here today for followup of her newly diagnosed small-cell lung cancer of the left lower lobe of the lung. ONCOLOGY HISTORY 1. Mantle cell lymphoma. Patient is a 73-year-old female who presented to the Emergency Department at [facility] in [place], [place], with left-sided abdominal pain on and off for the last few months. During her evaluation, the patient was found to have lymphocytosis with 71% lymphocytes, 20% neutrophils, and fullness in the left upper quadrant due to splenomegaly, suspicious for lymphoma, so the patient had a CT chest, abdomen, and pelvis done on October 18, 2017, which showed bulky mediastinal and bilateral hilar adenopathy in addition to massive retroperitoneal mesenteric adenopathy and periportal adenopathy. Massive splenomegaly was also noted. There was a mass effect on the mid splenic vein by the lymph node mass. There was extensive honeycombing in the right lower lobe adjacent irregular cavitary lesion, likely chronic. There was also noted a 5 mm subpleural noncalcified nodule in the right lower lobe. I received a call from the ER physician that day about the findings, and I advised to do flow cytometry of the leukemia lymphoma panel, which was done on October 18, 2017. The diagnosis came back positive for CD5-positive B-cell lymphoproliferative disorder with phenotype features most consistent with mantle cell lymphoma, although an unusual chronic lymphocytic leukemia or small lymphocytic lymphoma cannot be completely excluded. Patient had a PET/CT scan done on November 08, 2017, which showed lymphadenopathy above and below the diaphragm. She had marked splenomegaly, hilar adenopathy, mediastinal adenopathy, left internal mammary lymph node activity, gastrohepatic in the periportal region, retropleural adenopathy along the aorta, and periaortic activity down through the abdomen to the bifurcation. Bone marrow aspiration biopsy done on October 29, 2017, was positive for mantle cell lymphoma. BCL1 and SOX11 were positive. Flow cytometry was positive for CD5 monoclonal B-cell population. FISH was positive for variant translocation 11;14. Patient started chemotherapy with rituximab and bendamustine on November 14, 2017. Patient received six cycles of rituximab and bendamustine, completed on May 13, 2018. Patient started maintenance rituximab therapy in July 2018. 2. Small-cell lung cancer of the left lower lobe of the lung. Patient had a CT chest for evaluation of her lung condition on the September, which showed 1.3 cm new noncalcified nodule in the left lower lobe of the lung. The small sclerotic T10 was stable. There was marked improvement of the mediastinal lymph nodes. 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 Then on the October, patient had a CT brain which showed postoperative changes with previous left occipital craniectomy, but no brain metastasis. The October, patient had a PET/CT scan which showed 1.6 cm left lower lobe new lung nodule with SUV 7.2. There was another new lung nodule in the right infrahilar region, 0.9 cm with SUV 12.5, but there was no evidence of systemic metastasis. HISTORY OF PRESENT ILLNESS Patient is here today for followup of her recently diagnosed left lower lobe of the lung small-cell lung cancer. Patient is complaining of cough with occasional expectoration. She continues to smoke, but other than that, she is really doing very well. PAST MEDICAL HISTORY 1. Trigeminal neuralgia. 2. Hypertension. 3. Hyperlipidemia. 4. GERD. PAST SURGICAL HISTORY 1. Tonsillectomy. 2. Surgery for trigeminal neuralgia. 3. Appendectomy. 4. Hysterectomy. 5. Cochlear implant surgery. 6. Surgery for left ankle fracture. SOCIAL HISTORY Patient is with no children. She is a homemaker. She smoked 1-1/2 packs a day for 50 years. She drinks wine and beer two to three a day for a long time. Denies any abuse of illicit drugs. FAMILY HISTORY Mother had lung cancer. CURRENT MEDICATIONS 1. Percocet 5/325 mg tablet q.6 hours p.r.n. for pain. 2. Benazepril hydrochloride 10 mg daily. 3. Amlodipine 5 mg daily. 4. Glucosamine sulfate 1000 mg tablet twice daily. 5. Premarin 0.9 mg tablet daily. 6. Lipitor 20 mg daily. 7. Calcium with vitamin D one tablet daily. ALLERGIES 1. PENICILLIN DERIVATIVES. 2. AMOXICILLIN, which caused diarrhea. 3. SULFA, which she does not know the reaction. REVIEW OF SYSTEMS CONSTITUTIONAL: No appetite or weight change. No fever, chills, or sweating. No recent infection. HEENT: Ears: No tinnitus or hearing problem. Nose: No nasal discharge or epistaxis. Throat: No sore throat or mouth ulcers. Eyes: No diplopia or visual changes. RESPIRATORY: No shortness of breath. Patient has cough and occasional phlegm. No hemoptysis. CARDIOVASCULAR: No chest pain, orthopnea, or paroxysmal nocturnal dyspnea (PND). No edema. No palpitations. GASTROINTESTINAL: No nausea or vomiting. No diarrhea or constipation. No change in bowel movements. No heartburn or swallowing difficulties. No abdominal pain. No jaundice. No hematemesis, melena, or rectal bleeding. GENITOURINARY: No hematuria or dysuria. MUSCULOSKELETAL: No pain in the muscles, joints, or bones. NEUROLOGIC: No tingling or numbness in the hands or feet. No headaches or convulsions. HEMATOLOGIC/LYMPHATIC: No bleeding or easy bruising. No weakness or fatigue. No enlarged lymph nodes. SKIN: No skin rash or lumps. PSYCHIATRIC: No anxiety or depression. PHYSICAL EXAMINATION GENERAL: Looks stable. Well developed, well nourished, and in no acute distress. VITAL SIGNS: Blood pressure 119/65, pulse 103 per minute, respirations 16 per minute, temperature 97, pulse ox 87% on room air. HEENT: Head: Atraumatic. No sinus tenderness to palpation. Eyes: No icterus or conjunctivitis. Mouth and Throat: No oral thrush or mucositis. NECK: Supple. No cervical or supraclavicular lymphadenopathy. LUNGS: Clear to auscultation and percussion bilaterally. HEART: Regular rate and rhythm. No gallops, murmurs, clicks, or rubs. ABDOMEN: Soft and lax. No tenderness. No hepatosplenomegaly. No masses. EXTREMITIES: No cyanosis, clubbing, or edema. LYMPHATICS: No peripheral lymphadenopathy. NEUROLOGIC: Conscious, alert, and oriented times three. No focal motor or sensory deficits. PSYCHIATRIC: Mood and affect appear normal. SKIN: No skin rash, bruise, or purpuric eruption. ASSESSMENT 1. Small-cell lung cancer of the left lower lobe, discovered incidentally by CT chest done on the September, which showed a new 1.3 cm noncalcified nodule in the left lower lobe of the lung. CT-guided biopsy of the left lower lobe lung nodule done on the October came back positive for poorly differentiated neuroendocrine tumor (small-cell lung cancer). Her brain CT scan done on the October showed postoperative changes and the previous left occipital craniectomy, but no brain metastasis. Her PET scan on the the October 2018 did show 1.6 cm left lower lobe new lung nodule with SUV 7.2 with another new lung nodule in the right infrahilar region 1.9 cm with SUV 12.5. I had a long discussion with the patient and her today regarding further management. Given that these are the only two nodules which are positive by PET scan and no systemic metastasis, I am planning to treat her with concurrent chemoradiation. I am planning to treat her with carboplatin and VP16. I think cisplatin will be too tough for her. I planning to use AUC of carboplatin between 4 to 5 and VP16 at 100 mg/m2 with Neulasta to be given after each cycle of chemotherapy. I contacted Dr. Webster, who is also seeing the patient, and we will coordinate together to start her chemoradiation. In the meantime, we will stop treatment with rituximab at the moment until we finish her treatment for the small-cell lung cancer, which is more serious than the maintenance therapy for her lymphoma. I am planning to start treatment next week. 2. Stage IV mantle cell lymphoma with CD5-positive B-cell lymphoproliferative disorder, phenotypically consistent with mantle cell lymphoma by flow cytometry of the peripheral blood done October 18, 2017. CT chest, abdomen, and pelvis done October 18, 2017, did reveal bulky mediastinal, bilateral hilar, in addition to massive retroperitoneal mesenteric adenopathy and massive splenomegaly. Those results are confirmed by PET/CT scan done November 08, 2017. Bone marrow aspiration biopsy October 29, 2017, came back positive for mantle cell lymphoma. BCL1 and SOX11 were positive. FISH was positive for variant translocation 11;14. Patient received seven cycles of rituximab and bendamustine between November 14, 2017, through May 13, 2018. PET scan done April 22, 2018, showed complete disappearance of the uptake from the lymph nodes and spleen. The spleen is getting smaller in size, but still enlarged. There was an area of linear uptake along the wall of the cavitary lesion in the right lung base, which could represent inflammatory/infectious lesion and not related to lymphoma. Patient started maintenance rituximab therapy July 2018, and her treatment was held in October 2018 because of the new diagnosis of small-cell lung cancer, and the patient is going to receive the treatment for that with concurrent chemoradiation. I believe small-cell lung cancer is more serious than her lymphoma maintenance therapy. We will consider resuming rituximab in the future after we finish her treatment for the lung cancer. 3. Hypertension, on treatment. 4. Hyperlipidemia, on treatment. PLAN 1. Hold rituximab. 2. Patient to return next week to start chemotherapy with carboplatin and etoposide. 3. CBC and chem panel to be checked weekly. 4. Neulasta 6 mg subcutaneously after each cycle of chemotherapy. 5. Patient to return in three weeks after each cycle with CBC and chem panel. 6. Radiation Therapy consultation for concurrent chemoradiation. 7. Patient to contact us for any new concerns or complaints. MTDD
[2018-11-06 10:28] VITALS: BP 108/68
--- NOTE | 2018-11-06 12:14 | ONCOLOGY CHEMO TEACHING ---
EVENT DATE: November 06, 2018 DIAGNOSES 1. Stage IV mantle cell lymphoma. 2. Hypertension. 3. Hyperlipidemia. 4. Left lower lobe small-cell lung cancer. The patient is seen today for chemotherapy teaching. A total of 60 minutes was spent with her, 100% of which was [id number] counseling. HISTORY OF PRESENT ILLNESS Patient is here today for followup of her recently diagnosed left lower lobe of the lung small-cell lung cancer. Patient is complaining of cough with occasional expectoration. She continues to smoke, but other than that, she is really doing very well. She has not had any changes since her last visit with us. ONCOLOGY HISTORY 1. Mantle cell lymphoma. Patient is a 73-year-old female who presented to the Emergency Department at [facility] in [place], [place], with left-sided abdominal pain on and off for the last few months. During her evaluation, the patient was found to have lymphocytosis with 71% lymphocytes, 20% neutrophils, and fullness in the left upper quadrant due to splenomegaly, suspicious for lymphoma, so the patient had a CT chest, abdomen, and pelvis done on October 18, 2017, which showed bulky mediastinal and bilateral hilar adenopathy in addition to massive retroperitoneal mesenteric adenopathy and periportal adenopathy. Massive splenomegaly was also noted. There was a mass effect on the mid splenic vein by the lymph node mass. There was extensive honeycombing in the right lower lobe adjacent irregular cavitary lesion, likely chronic. There was also noted a 5 mm subpleural noncalcified nodule in the right lower lobe. I received a call from the ER physician that day about the findings, and I advised to do flow cytometry of the leukemia lymphoma panel, which was done on October 18, 2017. The diagnosis came back positive for CD5-positive B-cell lymphoproliferative disorder with phenotype features most consistent with mantle cell lymphoma, although an unusual chronic lymphocytic leukemia or small lymphocytic lymphoma cannot be completely excluded. Patient had a PET/CT scan done on November 08, 2017, which showed lymphadenopathy above and below the diaphragm. She had marked splenomegaly, hilar adenopathy, mediastinal adenopathy, left internal mammary lymph node activity, gastrohepatic in the periportal region, retropleural adenopathy along the aorta, and periaortic activity down through the abdomen to the bifurcation. Bone marrow aspiration biopsy done on October 29, 2017, was positive for mantle cell lymphoma. BCL1 and SOX11 were positive. Flow cytometry was positive for CD5 monoclonal B-cell population. FISH was positive for variant translocation 11;14. Patient started chemotherapy with rituximab and bendamustine on November 14, 2017. Patient received six cycles of rituximab and bendamustine, completed on May 13, 2018. Patient started maintenance rituximab therapy in July 2018. 2. Small-cell lung cancer of the left lower lobe of the lung. Patient had a CT chest for evaluation of her lung condition on the September, which showed 1.3 cm new noncalcified nodule in the left lower lobe of the lung. The small sclerotic T10 was stable. There was marked improvement of the mediastinal lymph nodes. 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 Then on the October, patient had a CT brain which showed postoperative changes with previous left occipital craniectomy, but no brain metastasis. The October, patient had a PET/CT scan which showed 1.6 cm left lower lobe new lung nodule with SUV 7.2. There was another new lung nodule in the right infrahilar region, 0.9 cm with SUV 12.5, but there was no evidence of systemic metastasis. PAST MEDICAL HISTORY 1. Trigeminal neuralgia. 2. Hypertension. 3. Hyperlipidemia. 4. GERD. PAST SURGICAL HISTORY 1. Tonsillectomy. 2. Surgery for trigeminal neuralgia. 3. Appendectomy. 4. Hysterectomy. 5. Cochlear implant surgery. 6. Surgery for left ankle fracture. FAMILY HISTORY Mother had lung cancer. SOCIAL HISTORY Patient is with no children. She is a homemaker. She smoked 1-1/2 packs a day for 50 years. She drinks wine and beer two to three a day for a long time. Denies any abuse of illicit drugs. CURRENT MEDICATIONS 1. Percocet 5/325 mg tablet q.6 hours p.r.n. for pain. 2. Benazepril hydrochloride 10 mg daily. 3. Amlodipine 5 mg daily. 4. Glucosamine sulfate 1000 mg tablet twice daily. 5. Premarin 0.9 mg tablet daily. 6. Lipitor 20 mg daily. 7. Calcium with vitamin D one tablet daily. ALLERGIES 1. PENICILLIN DERIVATIVES. 2. AMOXICILLIN, which caused diarrhea. 3. SULFA, which she does not know the reaction. DISCUSSION 1. A total of 60 minutes was spent in counseling today, 100% of which was face to face. At today's chemotherapy teaching session we discussed her diagnosis as well as the planned chemotherapy regimen and toxicities associated with carboplatin/etoposide days 1-3, every 21 days x6 cycles. Neulasta injection will be given on day 4 of each 21-day cycle. 2. Side effects and toxicities of chemotherapy agents included, but were not limited to: A. Bone marrow suppression, specifically neutropenia. She is instructed to contact our offices with any signs of infection. CBC will be monitored routinely. We discussed common sense approaches including routine hand washing and avoidance of crowds/sick people if neutropenic. B. GI side effects. Discussed the possibility of nausea, vomiting, diarrhea and constipation. She will receive IV antiemetics and will be prescribed antiemetics for home use. If she were to have diarrhea, recommended Imodium. If she were to have constipation, recommended Senna-S or Miralax routinely. Further interventions will be made based on side effects. C. side effects. Discussed the importance of adequate hydration (minimum 8 cups of fluid per day) and emptying the bladder on a regular basis. IV hydration can be scheduled as needed. D. Mouth sores. Recommended salt water or baking soda gargles as needed. E. Skin toxicity. Discussed that chemotherapy was very drying to the skin and mucous membranes. Recommended routine moisturizing as well as sun protection. F. Neurotoxicity. Discussed symptoms of peripheral neuropathy. She will be monitored of these symptoms and will notify us if progressive. G. Alopecia. Prescription is written for cranial prosthesis. A list of local [employer] shops is given. H. Fatigue. Discussed that this is one of the most common complaints of patients undergoing chemotherapy. I have encouraged her to remain as active as possible, taking frequent rests as needed. I. Infusion reaction. Reviewed IV premedications. She will be monitored closely during infusions. J. Reproductive Health: Discussed importance of preventing while on chemotherapy. Discussed control options and fertility preservation. Also, to abstain from sexual intercourse for 2-3 days after chemotherapy administration. 3. I have instructed the patient to call our office if she is prescribed any new medications. It is recommended that multiple supplements or herbal medications may not be taken as these may interfere with the action of the chemotherapy. 4. Discussed dietary issues associated with chemotherapy including anorexia and changes in taste. A handout of nutrition information is given. 5. Office contact information ([phone]) is given. I have encouraged the patient to call with any issues regarding treatment. 6. A tour of the infusion room is given. She is given a packet of information including all of the above. 7. Patient already has central access with right chest wall port-a-cath. Patient has recently followed up with Dr. Webster for radiation oncology consultation. She is scheduled for CT sim next . Per Dr. Webster, plan is for patient to initiate radiotherapy in approximately four weeks. 8. We reviewed her home antiemetics and patient brought in her bottles with her today. She still has valid prescription for Zofran, Prochlorperazine and Lorazepam. Explained to patient and her that she is to notify us prior to running out so that we can refill these for her. 9. Patient will return to the clinic next Sunday as scheduled to initiate Day #1 of Cycle #1 with carbo/[employer]ICA[employer] ELIGIBILITY SPECIALIST-16. 10. Patient is aware that she will require one week toxicity check after starting treatment. She will likely see Shaneka Mondragon NP, at that time. 11. Explained to patient that per chemo regimen orders, she is to come in weekly for labs to consists of CBC and CMP. She will have CBC, CMP, uric acid, LDH and phosphorus level drawn on day #1 of each cycle. MTDD
[2018-11-11] MEDS: DEXAMETHASONE SOD PHOS 10MG/ML IVP PRN (12:24)
[2018-11-11 12:44] VITALS: BP 111/51
[2018-11-11 16:24] VITALS: BP 111/51
[2018-11-11] MEDS: HEPARIN FLSH (PORT) 500 UN/5ML IVP PRN (16:34)
[~2018-11-12] VITALS: Ht 158.8 cm; Wt 54.8 kg
[~2018-11-12] MED LIST changes: +ACETAMINOPHEN 325 MG TAB PO PRN; +ALTEPLASE RECOMB 2 MG VIAL IVP PRN; +CARBOPLATIN IVPB ONE; +DEXAMETHASONE SOD PHOS 10MG/ML IVP PRN; +DEXTROSE 5%(*) 100 ML BAG 100 ML IVPB PRN; +ETOPOSIDE IV ONE; +FOSAPREPITANT DIM 150 MG/5 ML 150 MG in NS(*) 0.9% 250 ML BAG 245 ML IVPB PRN; -IOPAMIDOL 76% 150 ML INFUS BTL 150 ML ONE; +LIDOCAINE/SOD BICARB 8.4% SYR ID PRN; +NS 0.9% IV ONE; +NS 0.9% IVPB ONE; +NS(*) 0.9% 100 ML BAG 100 ML IVPB PRN; +NS(*) 0.9% 250 ML BAG 250 ML IV PRN; +NS(*) 0.9% 500 ML BAG 500 ML IV PRN; +PALONOSETRON 0.25 MG/5 ML VIAL IVP PRN; +RITUXIMAB IV ONE; +WATER FOR INJ,STERILE 20 ML IVP PRN; +diphenhydrAMINE 25 MG CAP PO PRN
[2018-11-12 13:10] VITALS: BP 108/68
[2018-11-12] MEDS: HEPARIN FLSH (PORT) 500 UN/5ML IVP PRN (13:12)
[2018-11-12] MEDS: DEXAMETHASONE SOD PHOS 10MG/ML IVP PRN (13:25)
== END ==
LOC: ONC 08-14 07:24 → SPU 10-08 12:50 → ONC 11-01 10:16
PROVIDERS: ATTEND Internal Medicine Hematology
DX: Z51.11 Encounter for antineoplastic chemotherapy (principal); C85.97 Non-Hodgkin lymphoma, unspecified, spleen; I10 Essential (primary) hypertension; E78.5 Hyperlipidemia, unspecified; Z79.899 Other long term (current) drug therapy; F17.210 Nicotine dependence, cigarettes, uncomplicated; R53.1 Weakness; R53.83 Other fatigue; R11.0 Nausea; R19.7 Diarrhea, unspecified; Z23 Encounter for immunization; R05 Cough; K59.00 Constipation, unspecified
CPT/HCPCS: 83615; 84100; 84550; 85025; 85027; 96413; 96415; 96523; A9270; G0463; J1100; J1453; J1642; J2469; J7040; J7050; J9045; J9181; J9312; Q0163; 82040; 82247; 82310; 82374; 82435; 82565; 82947; 84075; 84132; 84155; 84295; 84450; 84460; 84520; 96375; 99212

== ENCOUNTER 2019-01-23 10:30 | Outpatient (RCR) | payer MEDICARE ==
[2017-11-23 20:31] VITALS: BMI 22.5
--- NOTE | 2018-11-02 21:25 | ONCOLOGY CONSULTATION ---
EVENT DATE: November 01, 2018 CHIEF COMPLAINT/REASON FOR CONSULTATION Newly diagnosed poorly diagnosed neuroendocrine carcinoma (small-cell carcinoma). ONCOLOGY HISTORY 1. Diagnosis of poorly differentiated neuroendocrine carcinoma (small-cell carcinoma) with CT-guided lung biopsy on 10/21/18. PET/CT scan demonstrated activity in the left lower lobe 16 mm nodule with SUV 7.2. There is a second right infrahilar new lung nodule 9 mm, SUV 12.5. 2. Stage IV mantle cell lymphoma (CD5 positive B-cell lymphoproliferative disorder, consistent with mantle cell lymphoma or CLL or small lymphocytic lymphoma). 3. Bone marrow aspiration positive for mantle cell lymphoma 10/29/17. Chemotherapy delivered bendamustine plus rituximab for six cycles, completed 05/13/18. Patient presently on maintenance rituximab since July 2018. 4. Stage: Limited stage. HISTORY This is a very interesting 73-year-old lady who was referred to me by Dr. Aden Pelaez today. The patient was seen accompanied by her , and radiographs and pathology report were reviewed with her. The patient has a significant smoking history of 1-1/2 packs per day for over 50 years. She continues to smoke at this time. She was diagnosed last year with mantle cell lymphoma and has been receiving appropriate systemic therapy. The patient was recently found to have an abnormal PET/CT scan with resolution of her previous splenomegaly and lymphadenopathy. She was found to have highly suspicious lesions in her lung (left lower lobe 16 mm nodule and right infrahilar 9 mm nodule) with decision to proceed with CT-guided needle biopsy of the larger lung mass. The PET/CT scan was performed on 10/30/18. Her lung biopsy was performed on 10/21/18. Patient has intermittent cough at this time, moderate phlegm, occasional blood. Denies any new or persistent headaches or any new or persistent bone pain. She did have a recent CT scan of the head which was negative for metastatic disease. Patient was referred to me for radiation therapy considerations in conjunction with systemic chemotherapy. PAST MEDICAL HISTORY 1. Stage IV mantle cell lymphoma. 2. Hypertension. 3. Hyperlipidemia. 4. GERD. 5. Trigeminal neuralgia (resolved after surgical procedure 10 years ago in [place]). PAST SURGICAL HISTORY 1. Lung biopsy 10/21/[address] guidance. 2. Prior tonsillectomy. 3. Appendectomy. 4. Hysterectomy. 5. Right cochlear implant. 6. Previous surgery for left ankle fracture. 7. Prior surgery for trigeminal neuralgia. FAMILY HISTORY Notable for mother with lung carcinoma around age 80. SOCIAL HISTORY Patient is . No children. Smoking history of 1-1/2 packs per day for 50 years. Patient has enjoyed drinking wine and beer. MEDICATIONS 1. Percocet 5/325 one tablet q.6 hours p.r.n. pain. 2. Benazepril 10 mg a day. 3. Amlodipine 5 mg a day. 4. Glucosamine 1000 mg b.i.d. 5. Premarin 0.9 mg daily. 6. Lipitor 20 mg daily. 7. Calcium with vitamin D. ALLERGIES PENICILLIN, SULFA. COMPREHENSIVE REVIEW OF SYSTEMS Notable for the cough and fatigue. Patient is very hard of hearing. Her best hearing is in her right ear where she had the cochlear implant. Otherwise unremarkable. PHYSICAL EXAMINATION VITAL SIGNS: Listed in EMR today. GENERAL: A 73-year-old female of medium build. Karnofsky Performance Status 80. HEENT: Unremarkable. LUNGS: Fair exchange bilaterally. No rales or wheezes today. HEART: Sounds regular. ABDOMEN: Soft. No gross organomegaly. EXTREMITIES: No edema or cyanosis. NEUROLOGIC: No focal deficits. IMPRESSION This is a 73-year-old lady who was diagnosed a year ago with stage IV mantle cell lymphoma. She presently has a newly diagnosed poorly differentiated neuroendocrine carcinoma, presenting itself in the left lung with hypermetabolic nodule measuring 16 mm and an SUV activity of 7.2. There is a 9 mm right infrahilar nodule which is also active with an SUV of 12.5. There are patchy infiltrates in the lower on the right side consistent with previous scarring, perhaps due to pneumonia or prior pleural effusions. The lymphoma appears to be in remission, and periaortic lymph nodes, liver, and spleen have returned to normal size. No metastatic pattern in the bones. PLAN I discussed with Dr. Benton the oncology plan. We will treat the patient as a limited stage small-cell tumor. This will involve combination COMPUTER TECHNOLOGY TEACHER-16 and carboplatin with concurrent radiation therapy. Radiation therapy will start within the next four weeks. Earlier treatment has been associated with a decrease in cranial metastasis. Present plan is to proceed with 3-D radiation therapy to both lung nodules concurrently to 5040 cGy. I will consider whether to boost the nodules at that juncture based on therapeutic response. All questions were answered to the patient's satisfaction today. She agrees to proceed. Staff will contact her next week to set up the planning CT scan. Thank you for the referral and opportunity to discuss options with the patient and her today. SHAJI
[2018-12-05 10:19] VITALS: BP 107/82
[2018-12-05 10:23] LABS: PLATELET COUNT, AUTOMATED 232 K/uL (150-450)
[2018-12-10 10:28] VITALS: BP 100/64
[2018-12-10] MEDS: HEPARIN FLSH (PORT) 500 UN/5ML IVP PRN (10:28)
[2018-12-10 10:34] LABS: PLATELET COUNT, AUTOMATED 183 K/uL (150-450)
[2019-01-16] MEDS: HEPARIN FLSH (PORT) 500 UN/5ML IVP PRN (12:30)
[~2019-01-23 10:30] MED LIST changes: -ACETAMINOPHEN 325 MG TAB PO PRN; -CARBOPLATIN IVPB ONE; +D5 1/2 NS(*) 1000 ML BAG 1,000 ML IV ONE; -DEXAMETHASONE SOD PHOS 10MG/ML IVP PRN; -ETOPOSIDE IV ONE; -FOSAPREPITANT DIM 150 MG/5 ML 150 MG in NS(*) 0.9% 250 ML BAG 245 ML IVPB PRN; +LIDO15SO2 PO; -NS 0.9% IV ONE; -NS 0.9% IVPB ONE; -NS(*) 0.9% 250 ML BAG 250 ML IV PRN; +NS(*) 0.9% 250 ML BAG 250 ML IVPB PRN; -NS(*) 0.9% 500 ML BAG 500 ML IV PRN; +ONDA4TAB97 PO; -PALONOSETRON 0.25 MG/5 ML VIAL IVP PRN; +PANT40TA65 PO; -RITUXIMAB IV ONE; -diphenhydrAMINE 25 MG CAP PO PRN
== END 2019-01-30 ==
LOC: RAON 10:30
PROVIDERS: ATTEND Radiology Radiation Oncology
DX: Z51.0 Encounter for antineoplastic radiation therapy (principal); C7A.1 Malignant poorly differentiated neuroendocrine tumors; Z85.72 Personal history of non-Hodgkin lymphomas
CPT/HCPCS: 36591; 77295; 77300; 77334; 77336; 77386; 77412; 85025; G0463; J1642; 77301; 77338; 81001; 82040; 82247; 82310; 82374; 82435; 82565; 82947; 84075; 84132; 84155; 84295; 84450; 84460; 84520; 87088; 99202; 99212; J7030